=== PATIENT | male | born 1955 | race Caucasian/White ===

== ENCOUNTER 2019-05-25 10:11 | Inpatient (IN) | payer MEDICARE ==
[2019-05-25] MEDS ORDERED: ISOVUE-370 76%-LOCM 1 ML ONE (10:58)
[2019-05-25 10:59] LABS: Bilirubin Negative (Negative); Blood, Urine Large (Negative); Clarity CLOUDY (Clear); Glucose, Urine (Dipstick) Negative (Negative); Leukocyte Moderate (Negative); Nitrite Negative (Negative); Protein, Urine (Dipstick) 100 mg/dL (Neg-Trace); Urobilinogen 0.2 mg/dL (0.2-1.0)
[2019-05-25 11:02] LABS: Hyaline Casts/LPF 0-3 HYALINE CAST LPF (0-3 Hyaline); RBC/HPF GREATER THAN 50-TNTC HPF (0-3); Squamous Epithelial 0-3 HPF (0-3)
[2019-05-25 11:05] LABS: Bacteria/HPF 1+ HPF (None Seen)
--- NOTE | 2019-05-25 13:14 | PDOC.FPRHP ---
- Allergies/Adverse Reactions Allergies Allergy/AdvReac Type Severity Reaction Status Date / Time No Known Allergies Allergy Verified 12/07/13 18:49 - Home Medications Medication Instructions Recorded Confirmed Type Aspirin Chewable [Aspirin Chewable 81 mg PO DAILY 12/07/13 12/07/13 History Tablet] Budesonide-Formoterol [Symbicort 1 puff INH BID 12/07/13 12/07/13 History 80-4.5] Butalb/Acetaminophen/Caffeine 1 - 2 capsule PO Q4HR PRN 12/07/13 12/07/13 History [Fioricet Capsule] Combivent Inhaler 1 puff INH 12/07/13 12/07/13 History HYDROcodone/Acetaminophen [White] 1 tab PO Q4HR PRN 12/07/13 12/07/13 History Metoprolol Tartrate [Lopressor] 50 mg PO BID 12/07/13 12/07/13 History Metronidazole [metroNIDAZOLE] 500 mg PO Q8HR 12/07/13 12/07/13 History Plavix 75 mg PO DAILY 12/07/13 12/07/13 History Promethazine [Phenergan] 25 mg PO Q4HR PRN 12/07/13 12/07/13 History Vancomycin HCl [Vancocin] 250 mg PO Q8HR 12/07/13 12/07/13 History - History PMHx: PSHx: FHx: Social: - Vital signs BP: [] HR: [] RR: [] Tmax: [] Pox: []% on [] Wt: [] FMR H&P: Results - Labs Lab results: Urine Ketones Negative mg/dL (Negative) 05/25/19 10:48 Urine Blood Large (Negative) H 05/25/19 10:48 Urine Nitrite Negative (Negative) 05/25/19 10:48 Ur Leukocyte Esterase Moderate (Negative) H 05/25/19 10:48 Urine RBC GREATER THAN 50-TNTC HPF (0-3) H 05/25/19 10:48 Urine WBC 4-6 HPF (0-3) H 05/25/19 10:48 Ur Squamous Epith Cells 0-3 HPF (0-3) 05/25/19 10:48 Urine Bacteria 1+ HPF (None Seen) H 05/25/19 10:48 FMR H&P: Upper Level - Plan Date/Time: 05/25/19 1314 I, [], have evaluated this patient and agree with findings/plan as outlined by international banker resident. Pertinent changes/additions are listed here.
[2019-05-25] MEDS ORDERED: Cefepime 2 GM VIAL ONE (13:30)
[2019-05-25] MEDS ORDERED: Piperacillin/Tazobactam 4.5 GM VIAL ONE (13:30)
--- NOTE | 2019-05-25 14:21 | CT ---
EXAM: CT of the chest with contrast HISTORY: Right lower lobe pneumonia COMPARISON: None TECHNIQUE: Multiple contiguous axial images were obtained in a CT the chest with contrast. Coronal re formats were performed. FINDINGS: HEART: Normal in size without focal cardiac abnormality; calcifications in the coronary arteries. The re is a pacemaker with its lead in the right atrium. MEDIASTINUM: No hilar or mediastinal lymphadenopathy. LUNGS: Scattered multifocal infiltrates are seen, greatest in the right lower lobe. PLEURAL SPACE: Small right pleural effusion with fluid loculated in the right minor fissure. Calcific ations are seen along the pleura on the right. There is also a small layering left pleural effusion. CHEST WALL SOFT TISSUES: Unremarkable OSSEOUS STRUCTURES: Degenerative changes in the spine. VISUALIZED SUBDIAPHRAGMATIC STRUCTURES: Unremarkable IMPRESSION: 1. Multifocal pneumonia 2. Bilateral pleural effusions
[2019-05-25] MEDS ORDERED: Senokot S 8.6-50 MG TAB PO PRN ×2 (14:55→21:00)
[2019-05-25] MEDS ORDERED: Ondansetron PF 4 MG/2 ML Vial IVP PRN ×2 (14:55→14:56)
[2019-05-25] MEDS ORDERED: Calcium Carbonate 500 MG ChewTAB PO PRN ×2 (14:55→14:56)
[2019-05-25] MEDS ORDERED: Bisacodyl 5 MG TAB PO PRN (14:55)
[2019-05-25] MEDS ORDERED: Nitroglycerin 0.4 MG TAB (25 Tab Bottle) SL PRN (14:56)
[2019-05-25] MEDS ORDERED: cloNIDine 0.1 MG TAB PO PRN (14:56)
[2019-05-25] MEDS ORDERED: Benzonatate 100 MG CAP PO PRN (14:56)
[2019-05-25] MEDS ORDERED: Sodium Chloride 0.65% Nasal 44 ML BOT EA NARE PRN (14:56)
[2019-05-25] MEDS ORDERED: hydrALAZINE 20 MG/ML VIAL SLOW IVP PRN (14:56)
[2019-05-25] MEDS ORDERED: Acetaminophen 325 MG TAB ONE (15:13)
[2019-05-25] MEDS ORDERED: Furosemide 40 MG/4 ML VIAL SLOW IVP SCH (16:15)
--- NOTE | 2019-05-25 17:26 | HP ---
PRIMARY CARE PHYSICIAN: Luther Weller MD CHIEF COMPLAINT: Worsening shortness of breath, leukocytosis, and pneumonia. HISTORY OF PRESENTING ILLNESS: Mr. Romeo is a 64-year-old male with past medical history of peripheral vascular disease, hypertension, COPD, and tobacco abuse, who presented to the emergency room from inpatient rehab. History was mainly obtained by discussing with the ER physician, Dr. Rivera. The patient is a very poor historian and short of breath to provide any meaningful history. According to Dr. Rivera, in the ER, Mr. Romeo was transferred over by Dr. Farhad Ruelas from the rehab center. Apparently, he has undergone a right below-knee amputation at [facility] earlier this month and was transferred over to rehab facility. He developed pneumonia over there and was initially treated with Augmentin, but later, cultures came back positive for Pseudomonas, so he was started on cefepime. He was also given IV Solu-Medrol. Unfortunately, he had worsening leukocytosis and worsening shortness of breath, so, Dr. Ruelas transferred him over to the emergency room today. In the ER upon presentation, his saturations were recorded as 100%, but that was on BiPAP. He was eventually transitioned off BiPAP. He underwent a CT scan of the chest in the ER, which showed significant multifocal pneumonia and pleural effusion. Upon review of his blood work from the rehab, it was found out that his leukocytosis has worsened from 15.6 on 05/19/2019 to 25 today. He has also developed thrombocytosis with platelet count of 988 from 874. His neutrophil percent age is 86% with 1% bands. His serum chemistries show a potassium of 5.6, but the GFR is within normal limit of greater than 90. His cultures in [facility] are from blood and urine dated 05/21 and 05/24 and are negative so far. I am not sure if the Pseudomonas was seen on the blood culture or the sputum culture. He also has a PICC line that was placed in the rehab on 05/21/2019. He has been weaned off BiPAP for now, but will be admitted to [facility] for continued struggle with his breathing. He has been somewhat combative in the ER and refused to put on the BiPAP machine. I did discuss this with him and so far he is agreeable. He also is agreeable to intubation if necessary and wants to be a full code. PAST MEDICAL HISTORY: Peripheral vascular disease, hypertension, history of migraine, coronary artery disease, COPD, and tobacco abuse. PAST SURGICAL HISTORY: 1. Femoral-popliteal bypass, left leg. 2. Bilateral leg amputations. The right BKA was done earlier this month at [facility]. PSYCHIATRIC HISTORY: No anxiety. No depression. SOCIAL HISTORY: He smokes half pack a day to one pack a day for 40+ years. He reports he drinks alcohol whenever he can. No drug abuse. He is currently at the rehab. Otherwise, he is and lives with his . FAMILY HISTORY: Brother diagnosed with heart attack at the age of 50. Father of pancreatic cancer. Mother of breast cancer. Hypertension runs among several family members. Sister had colon cancer. REVIEW OF SYSTEMS: CONSTITUTIONAL: Negative for weight loss or gain, ability to conduct usual activities. SKIN: Negative for rash, itching. EYES: Negative for double vision, pain. ENT/MOUTH: Negative for nose bleeding, neck stiffness, pain, tenderness. CARDIOVASCULAR: Negative for palpitations, dyspnea on exertion, orthopnea. RESPIRATORY: Negative for shortness of breath, wheezing, cough, hemoptysis, fever or night sweats. GASTROINTESTINAL: Negative for poor appetite, abdominal pain, heartburn, nausea, vomiting, constipation, or diarrhea. GENITOURINARY: Negative for urgency, frequency, dysuria, nocturia. MUSCULOSKELETAL: Negative for pain, swelling. NEUROLOGIC/PSYCHIATRIC: Negative for anxiety, depression. ALLERGY/IMMUNOLOGIC: Negative for skin rash, bleeding tendency. A 14-point review of systems is done. It is negative except for those mentioned in History and Physical. CODE STATUS: Full code, discussed with the patient. LABORATORY DATA: CBC shows WBCs 25.8 with 86% neutrophils, hemoglobin is 8.8, which was about the same throughout this month, and platelet count of 988. Serum chemistry shows sodium 133, potassium 5.6, bicarb 22, his BUN is 19, and his creatinine is 0.67. Troponin is 0.016. BNP was ordered by myself and was found to be elevated at 1607. Chest x-ray by my review shows bilateral pleural effusions with multiple pulmonary opacities. There are more prominent than the prior exam according to the radiologist. CT scan of the chest done in the ER today shows multifocal pneumonia bilaterally and bilateral pleural effusions. PHYSICAL EXAMINATION: VITAL SIGNS: Most recently, blood pressure 138/74, pulse of 76, respirations 22, and saturating 95% on 4 L oxygen. GENERAL: He is in mild respiratory distress, which worsens with conversation, but he is awake, alert, and oriented x3. HEENT: Mucous membrane is slightly dry. No oropharyngeal exudate or erythema. Head is normocephalic and atraumatic. Pupils are equal and reactive to light and accommodation. Extraocular movements intact. NECK: Supple without any lymphadenopathy, JVD, or bruit. CHEST: Evaluation shows bibasilar crackles. Decreased breath sounds at bases and diffuse wheezing bilaterally with loud rhonchi. HEART: Rate and rhythm are regular without any murmurs, rubs, or gallops. ABDOMEN: Soft, nontender, nondistended with positive bowel sounds. EXTREMITIES: Free of any cyanosis, clubbing, or edema. He has bilateral below-knee amputation. His right below-knee amputation is rather fresh, and his fresh dressing is without any drainage or erythema or warmth. NEUROLOGICAL: Examination is nonfocal. SKIN: Free of any rashes or bruises. Feels warm and dry to touch. PSYCHIATRIC: Normal affect. IMPRESSION AND PLAN: The patient has worsening leukocytosis, thrombocytosis, and worsening pneumonia on the chest CT. He has grown Pseudomonas out of some sort of culture at rehab, I am not sure sputum versus blood. Because of his prolonged hospitalization, we will double cover him for Pseudomonas with Zosyn and cefepime and add methicillin-resistant Staphylococcus aureus coverage with vancomycin as well. Symptomatic supportive care will be started. We will request consultation with Infectious Disease, Dr. Montero for now. We will obtain cultures from the PICC line as well as peripheral IV and urine as well. We will repeat labs in the morning. Lactic acid was ordered by myself, and it is not elevated at this time, and it is reported as 1.6. He is otherwise hemodynamically stable, but because of severity of his respiratory distress, he will be admitted to [facility]. 1. Acute hypoxic respiratory failure. I suspect a combination of chronic obstructive pulmonary disease exacerbation as well as fluid overload with pleural effusion and pneumonia. We will give him a dose of IV Lasix as his BNP is elevated and obtain a transthoracic echocardiogram and obtain cardiac enzymes. First cardiac enzyme was negative. We will use Solu-Medrol as well as nebulizers scheduled and p.r.n. for chronic obstructive pulmonary disease exacerbation. We will also use IV antibiotics as above for worsening multifocal pneumonia. BiPAP will be used as needed, and we will put him in IMCU and consult Pulmonary/Critical Care physicians to follow along. 2. Pneumonia, unlikely healthcare associated. Antibiotic and culture as above. 3. Elevated BNP. We will obtain an echo and diurese him with close monitoring of his renal function. His last echocardiogram was in 2013, which demonstrated mild diastolic congestive heart failure, but it was a difficult study. Acute coronary syndrome is not suspected at this time. 4. Chronic obstructive pulmonary disease with acute exacerbation as #2. 5. Bilateral [id number] amputation. Fall precautions will be provided, and we will consult Wound Care for wound care of his right stump. 6. Deep venous thrombosis and gastrointestinal prophylaxis. 7. Disposition: Mr. Romeo is currently being admitted to [facility] for acute respiratory distress and severe sepsis with end-organ damage. 8. Estimated length of stay at this time is at least 2 to 3 midnights. Further management will depend upon his clinical course. Total time spent in taking care of this critically-ill patient, 45 minutes. Job ID: [id number]
[2019-05-25] MEDS ORDERED: Furosemide 40 MG/4 ML VIAL ONE (17:58)
[2019-05-25] MEDS ORDERED: Cefepime 1 GM in Sodium Chloride 0.9% 100 ML IVPB SCH (21:00)
[2019-05-25] MEDS: methylPREDNISolone Sod Succ/PF 125 MG/2 ML VIAL IVP SCH ×2 (21:23→23:11)
[2019-05-25] MEDS: Piperacillin/Tazobactam 3.375 GM in Sodium Chloride 0.9% 100 ML IVPB SCH ×2 (21:23→23:11)
[2019-05-25] MEDS: guaiFENesin ER 600 MG TAB PO SCH (21:27)
[2019-05-25] MEDS: oxyCODONE 5 MG TAB PO PRN (21:27)
[2019-05-25] MEDS: Heparin 5,000 UNITS/ML VIAL SC SCH (21:28)
[2019-05-25] MEDS: Famotidine/PF 20 mg/2ml Vial SLOW IVP SCH (21:28)
[2019-05-25] MEDS: Cepastat Lozenges 1 LOZ PO PRN (22:53)
[2019-05-25] MEDS ORDERED: Morphine 2 MG/ML SYRINGE SLOW IVP SCH (23:45)
[2019-05-26] MEDS: Cefepime 1 GM in Sodium Chloride 0.9% 100 ML IVPB SCH ×2 (01:27→15:17)
[2019-05-26] MEDS: Cepastat Lozenges 1 LOZ PO PRN ×3 (01:27→21:34)
[2019-05-26] MEDS: oxyCODONE 5 MG TAB PO PRN ×4 (01:28→23:53)
[2019-05-26] MEDS: Vancomycin HCl 750 MG in Sodium Chloride 0.9% 250 ML 250 ML IVPB SCH ×2 (04:04→16:38)
[2019-05-26] MEDS: methylPREDNISolone Sod Succ/PF 125 MG/2 ML VIAL IVP SCH (05:25)
[2019-05-26] MEDS: Piperacillin/Tazobactam 3.375 GM in Sodium Chloride 0.9% 100 ML IVPB SCH ×4 (05:26→23:27)
[2019-05-26] MEDS: Furosemide 40 MG/4 ML VIAL SLOW IVP SCH ×2 (05:26→15:17)
[2019-05-26 06:38] LABS: #Lymphocytes 0.3 thou/uL (1.20-3.40); #Monocytes 0.3 thou/uL (0.11-0.59); #Neutrophils 17.7 thou/uL (1.40-6.50); %Eosinophils 0.1 % (0.0-10.0); %Lymphocytes 1.4 % (21.0-51.0); %Monocytes 1.8 % (0.0-10.0); %Neutrophils 96.6 % (42.0-75.0); Mean Corpuscular HGB CONC 30.9 g/dL (32.0-36.0); Mean Corpuscular Hemoglobin 22.5 pg (27.0-31.0); Mean Corpuscular Volume 72.8 fL (78.0-98.0); Mean Platelet Volume 7.2 fL (7.4-10.4); Platelet Count 877 thou/uL (130-400); RBC Distribution Width 17.4 % (11.5-14.5); Red Blood Cell (RBC) Count 3.99 mill/uL (4.70-6.10); White Blood Cell (WBC) Count 18.3 thou/uL (4.8-10.8)
[2019-05-26 07:01] LABS: Anion Gap 12 mmol/L (10-20); BUN (Urea Nitrogen) 17 mg/dL (8.4-25.7); Calc. Creatinine Clearance 78 mL/min (70-130); Calcium 8.7 mg/dL (7.8-10.44); Carbon Dioxide 28 mmol/L (23-31); Chloride 101 mmol/L (98-107); Estimated GFR-MDRD Greater than 90; Glucose 141 mg/dL (80-115); Potassium 3.8 mmol/L (3.5-5.1); Sodium 137 mmol/L (136-145)
[2019-05-26 07:03] LABS: Anisocytosis SLIGHT = 6-15 cells (100X) (0-5/hpf); MDiff Complete? YES; Microcytosis SLIGHT = 6-15 cells (100X) (0-5/hpf); Platelet Morphology Comment Appears Increased
[2019-05-26] MEDS ORDERED: Vancomycin HCl 1 GM in Premix Bag 1 BAG IVPB SCH (09:00)
--- NOTE | 2019-05-26 09:02 | CON ---
DATE OF CONSULTATION: HISTORY OF PRESENT ILLNESS: Child Ousmane is a 64-year-old gentleman who recently underwent right below-knee amputation. He has been followed at the intermediate, had prolonged IV antibiotic, had a PICC line inserted. Right BKA was done on 05/11/2019. Presents with shortness of breath, fevers, chills, sweats. He has multiple medical problems. This morning, he was complaining of pain all over, particularly his back, his leg. He says he actually has some difficulty breathing, but that is somewhat better. Denies any coughing, wheezing, or chest pain. PAST MEDICAL HISTORY: In his numerous medical records, pertinent for COPD, hypertension, peripheral vascular disease, coronary artery disease. Longstanding history of apparently chronic headaches, mental status change. PAST SURGICAL HISTORY: Including left leg bypass, fem-popliteal bypass, bilateral lower leg amputation. SOCIAL HISTORY: Longstanding history of tobacco abuse for 40 years and alcohol intake. MEDICATIONS: His medicines presumably from home included: 1. Guaifenesin. 2. Pain medicine. 3. Atorvastatin. 4. Combivent inhaler. 5. Aspirin. 6. Plavix. 7. Amiodarone. 8. Verapamil. 9. Since admission, he has been started on neb treatments, Maxipime, Zosyn, and vancomycin. So far, cultures have been negative except for yeast. ALLERGIES: NONE. REVIEW OF SYSTEMS: Ten-point negative. PHYSICAL EXAMINATION: VITAL SIGNS: His sats are 99% on 2 L, respiratory rate 23, temp 97, blood pressure 99/76. CHEST: Decreased breath sounds. No wheezing. CARDIAC: Normal S1, S2. No gallops. ABDOMEN: No mass. LABORATORY DATA: White count 44744, H and H 9 and 29, platelet count is 877. Lytes are normal. Urine shows UTI. His chest x-ray showed evidence of bilateral pulmonary infiltrates slightly more pronounced in the right chest. His CAT scan of his chest did show infiltrates along with fluid along his minor fissure, may be loculated. IMPRESSION: 1. Coronary artery disease status post CABG. 2. Urinary tract infection. 3. Aspiration pneumonia. 4. Chronic obstructive pulmonary disease. 5. Severe deconditioning. 6. Peripheral vascular disease. 7. Alcohol abuse. 8. Tobacco abuse. PLAN: 1. Antibiotics per Infectious Disease. He no longer needs to be on MICU area. 2. We will continue steroids and neb treatment. 3. We will follow while on the MICU. Consultation note, 70 minutes, 50% with direct patient care. Job ID: [id number]
[2019-05-26] MEDS: Famotidine/PF 20 mg/2ml Vial SLOW IVP SCH ×2 (09:19→21:34)
[2019-05-26] MEDS: guaiFENesin ER 600 MG TAB PO SCH ×2 (09:19→21:34)
[2019-05-26] MEDS: Heparin 5,000 UNITS/ML VIAL SC SCH ×2 (09:19→21:34)
[2019-05-26] MEDS: methylPREDNISolone Sod Succ 40 MG VIAL IVP SCH ×3 (12:57→23:27)
--- NOTE | 2019-05-26 13:43 | PDOC.PN ---
- Subjective Encounter Start Date: 05/26/19 Encounter Start Time: 13:30 Subjective: f/u for acute resp failure, bilateral multifocal PNA on Cefepime, Vanc -: and Zosyn. - Objective Resuscitation Status - Order Detail: 05/25/19 14:55 Resuscitation Status Routine Resuscitation Status: FULL: Full Resuscitation Discussed with: discussed w pt JERAD Reviewed: Yes Vital Signs & Weight: Vital Signs (12 hours) Temp Pulse Resp Pulse Ox 05/26/19 10:58 78 18 99 05/26/19 10:27 97.0 F L 05/26/19 07:16 99 05/26/19 07:14 87 23 H 99 05/26/19 07:06 97.0 F L 05/26/19 05:20 90 24 H 100 05/26/19 03:52 97.3 F L 05/26/19 01:53 80 20 98 Weight Weight 118 lb 4.8 oz Most Recent Monitor Data Heart Rate from ECG 90 NIBP 99/76 NIBP BP-Mean 83 Respiration from ECG 29 SpO2 100 I&O: 05/25/19 05/26/19 05/27/19 06:59 06:59 06:59 Intake Total 1000 Output Total 1210 200 Balance -210 -200 Result Diagrams: 05/26/19 06:08 05/26/19 06:08 Additional Labs: Microbiology 05/24/19 09:17 Urine clean catch Urine Culture - Final Yeast species 05/25/19 13:19 Venous blood - Right Arm Blood Culture - Preliminary Specimen has been received and culture in progress. No Growth to date. 05/25/19 13:19 Venous blood - Left Arm Blood Culture - Preliminary Specimen has been received and culture in progress. No Growth to date. 05/25/19 10:48 Urine voided Urine Culture - Preliminary NO GROWTH AT 24 HOURS 05/21/19 16:42 Venous blood - Left Arm Blood Culture - Preliminary NO GROWTH AT 48 HOURS Laboratory Tests 05/24/19 05/25/19 05/25/19 05:00 02:00 15:16 WBC 21.2 H 25.8 H Hgb 8.4 L 8.8 L Lactic Acid 1.6 B-Natriuretic Peptide 05/25/19 15:16 WBC Hgb Lactic Acid B-Natriuretic Peptide 1607.3 H Radiology Reviewed by me: Yes (CT chest - multifocal infiltrates, consolidation , bilat pleural effusion) EKG Reviewed by me: Yes (Tele - SR) Phys Exam - Physical Examination Constitutional: NAD HEENT: PERRLA, sclera anicteric, oral pharynx no lesions Neck: no nodes, no JVD, supple, full ROM diminished in bases bilat S1, S2 Cardiovascular: RRR, no significant murmur, no rub, gallop Gastrointestinal: soft, non-tender, no distention, positive bowel sounds R BKA stump intact with wound dressings in place Musculoskeletal: pulses present Neurological: normal sensation, moves all 4 limbs A x O x 2 Skin: normal turgor, cap refill <2 seconds Dx/Plan (1) Pneumonia, bacterial Code(s): J15.9 - UNSPECIFIED BACTERIAL PNEUMONIA Status: Acute Comment: Bilateral involvement per CT chest, continue Vanc/Zosyn/Cefepime, Duonebs, Solumedrol, await blood cx results (2) Acute respiratory failure with hypoxia Code(s): J96.01 - ACUTE RESPIRATORY FAILURE WITH HYPOXIA Status: Acute Comment: Continue O2 support, see above (3) Toxic metabolic encephalopathy Code(s): G92 - TOXIC ENCEPHALOPATHY Status: Acute Comment: Secondary to #1, supportive mgmt, re-orientation techniques (4) Neutrophilic leukocytosis Code(s): D72.9 - DISORDER OF WHITE BLOOD CELLS, UNSPECIFIED Status: Acute Comment: Mild improvement, continue treatment as outlined above, serial CBC (5) COPD exacerbation Code(s): J44.1 - CHRONIC OBSTRUCTIVE PULMONARY DISEASE W (ACUTE) EXACERBATION Status: Acute (6) Peripheral vascular disease Code(s): I73.9 - PERIPHERAL VASCULAR DISEASE, UNSPECIFIED Status: Chronic Comment: Continue anti-platelet therapy (7) Status post below knee amputation of right lower extremity Code(s): Z89.511 - ACQUIRED ABSENCE OF RIGHT LEG BELOW KNEE Status: Acute Comment: Continue local wound care, consider Surgical evaluation - Plan plan discussed w/ family, continue antibiotics, PT/OT, aids social worker, respiratory therapy Stable currently -: 2D echo pending -: Continue Vanc/Zosyn/Cefepime -: PT/OT for functional assessment -: Resume ASA/Plavix * AM lab: BMP, CBC * Rehab re-screening once stabilizing
[2019-05-26] MEDS ORDERED: Diabetic Tussin 200 MG/10 ML UDCUP PO PRN (14:00)
[2019-05-26] MEDS ORDERED: Bisacodyl 10 MG SUPP PR PRN (14:00)
--- NOTE | 2019-05-26 18:20 | CON ---
DATE OF CONSULTATION: 05/26/2019 REASON FOR CONSULTATION: Possible pneumonia. HISTORY OF PRESENT ILLNESS: A 64-year-old patient with history of COPD, chronic smoking, still actively smoking; peripheral vascular disease with prior left BKA, who recently underwent a right BKA at [facility]. While there, he was diagnosed with pneumonia, was given initially I believe was azithromycin and transitioned to IV cefepime. Cultures from sputum yielded Pseudomonas aeruginosa, the strain was markedly susceptible to various different antimicrobials. The x-ray showed a patchy infiltrate in the right lower lobe only. After discharge, he developed worsening dyspnea, leukocytosis. He was transferred today to the emergency room from rehab. Initial O2 saturations were 100% on BiPAP. The CT scan of the chest was done which showed multifocal areas of pneumonia and loculated pleural effusion. Currently sitting on the bed at the [facility] area. Denies headaches. No visual symptoms, sore throat, odynophagia, or dysphagia. He has back pain along the entire extent of his back along the spine. He has severe pain at the amputation site, right BKA. He denies abdominal pain or chest pain. MEDICAL HISTORY: Peripheral vascular disease with bilateral BKAs, hypertension, migraine headaches, coronary artery disease; chronic obstructive pulmonary disease, chronic smoking, still actively smoking. SURGICAL HISTORY: Femoral-popliteal bypass, left side; bilateral BKAs. SOCIAL HISTORY: Current smoker. Lives in [place] by himself and he drinks heavily. FAMILY HISTORY: Heart disease and pancreatic cancer. CURRENT MEDICATIONS: 1. DuoNeb. 2. Cordarone. 3. Aspirin. 4. Lipitor. 5. Tessalon. 6. Dulcolax. 7. Cefepime. 8. Catapres. 9. Lasix. 10. Solu-Medrol. 11. Zofran. 12. Oxycodone. 13. Zosyn. 14. Vancomycin. PHYSICAL EXAMINATION: VITAL SIGNS: T-max 97.3, blood pressure 115/63, pulse 83, respirations are 16, and O2 saturation 99%. SKIN: Skin with the areas of abrasion in gluteal skin region and the area of below knee amputation with epidermolysis with bruising along the incision and the flap procedure with still ruiz in place. No overt necrosis, areas of superficial skin necrosis along the medial aspect of the right knee. GENERAL: The patient has no lymphadenopathy, chronically ill appearing, a little bit confused. HEENT: His ocular movements are conjugate. Pupils are equal. Conjunctivae normal. Oral cavity with no remaining [place] teeth. LUNGS: Diminished breath sounds, but symmetric in distribution. No obvious crackles or wheezing. HEART: S1 and S2. Diminished heart sounds. Soft aortic murmur. ABDOMEN: Not distended except for the suprapubic area where there is evidence of bladder distention. The remainder aspect of the abdomen, not distended. No ascites. No organomegaly. MUSCULOSKELETAL: No joint inflammatory activity except for the area of the amputation, which is very tender to palpation. NEUROLOGIC: He knows his name. He knows that he is in the hospital, could not tell me which hospital or the date. LABORATORY DATA: White cell count 18,000, hemoglobin 9, MCV 72, platelets are 877. Sodium 137 and creatinine 0.74. BNP 1600. Microbiology with negative blood cultures thus far. Urine culture, no growth 24, hours. Urinalysis with 4 to [address] was done here in the hospital, which showed multifocal areas of infiltrates greater than the right lung, small right pleural effusion with loculated fluid along the right minor fissure. ASSESSMENT: Peripheral vascular disease; chronic smoking; chronic obstructive pulmonary disease; likely ischemic cardiomyopathy with recent right BKA amputation, unclear prognosis for the right BK amputation and may need to be revised if the patient develops deterioration of the amputation site. He still has bilateral pulmonary infiltrates with an elevated BNP and it is possible that this all reflects pulmonary edema rather than an infectious pneumonitis. He was already started on broad-spectrum coverage, we will go ahead and submit a procalcitonin. Other possibilities would include pulmonary hemorrhage. Atypical infections are less likely. Vasculitis less likely. Thromboembolism is less likely as well. Job ID: [id number]
[2019-05-26] MEDS: Mometasone/Formoterol 120 PUFF INHALER INH SCH (18:31)
[2019-05-26] MEDS ORDERED: Ziprasidone 20 MG VIAL IM SCH (21:30)
[2019-05-26] MEDS: Atorvastatin Calcium 20 MG TAB PO SCH (21:31)
[2019-05-26] MEDS: Amiodarone 200 MG TAB PO SCH (21:31)
[2019-05-27] MEDS: Cefepime 1 GM in Sodium Chloride 0.9% 100 ML IVPB SCH ×2 (01:10→13:02)
[2019-05-27 03:45] LABS: #Lymphocytes 0.4 thou/uL (1.20-3.40); #Monocytes 0.7 thou/uL (0.11-0.59); #Neutrophils 15.7 thou/uL (1.40-6.50); %Eosinophils 0.1 % (0.0-10.0); %Lymphocytes 2.5 % (21.0-51.0); %Monocytes 4.3 % (0.0-10.0); %Neutrophils 93.1 % (42.0-75.0); Hemoglobin 8.3 g/dL (14.0-18.0); Mean Corpuscular HGB CONC 30.8 g/dL (32.0-36.0); Mean Corpuscular Hemoglobin 22.2 pg (27.0-31.0); Mean Corpuscular Volume 72.1 fL (78.0-98.0); Mean Platelet Volume 7.3 fL (7.4-10.4); Platelet Count 829 thou/uL (130-400); RBC Distribution Width 17.5 % (11.5-14.5); Red Blood Cell (RBC) Count 3.72 mill/uL (4.70-6.10); White Blood Cell (WBC) Count 16.9 thou/uL (4.8-10.8)
[2019-05-27 04:00] LABS: Anion Gap 9 mmol/L (10-20); BUN (Urea Nitrogen) 19 mg/dL (8.4-25.7); Calc. Creatinine Clearance 78 mL/min (70-130); Calcium 8.3 mg/dL (7.8-10.44); Carbon Dioxide 34 mmol/L (23-31); Chloride 96 mmol/L (98-107); Estimated GFR-MDRD Greater than 90; Glucose 142 mg/dL (80-115); Sodium 136 mmol/L (136-145)
[2019-05-27 04:02] LABS: Potassium 2.7 mmol/L (3.5-5.1)
[2019-05-27] MEDS ORDERED: Potassium Chloride 20 MEQ in Premix Bag 1 BAG IVPB SCH (04:30)
[2019-05-27] MEDS ORDERED: Vancomycin HCl 1 GM in Premix Bag 1 BAG IVPB SCH (05:00)
[2019-05-27] MEDS: Piperacillin/Tazobactam 3.375 GM in Sodium Chloride 0.9% 100 ML IVPB SCH ×3 (05:57→17:23)
[2019-05-27] MEDS: methylPREDNISolone Sod Succ 40 MG VIAL IVP SCH (05:58)
[2019-05-27] MEDS: Furosemide 40 MG/4 ML VIAL SLOW IVP SCH ×2 (05:58→13:01)
[2019-05-27] MEDS: oxyCODONE 5 MG TAB PO PRN ×5 (06:17→21:31)
[2019-05-27] MEDS: Cepastat Lozenges 1 LOZ PO PRN (06:24)
[2019-05-27] MEDS: Mometasone/Formoterol 120 PUFF INHALER INH SCH ×2 (07:15→18:34)
[2019-05-27] MEDS: Famotidine/PF 20 mg/2ml Vial SLOW IVP SCH ×2 (09:02→21:31)
[2019-05-27] MEDS: Amiodarone 200 MG TAB PO SCH ×2 (09:02→21:33)
[2019-05-27] MEDS: guaiFENesin ER 600 MG TAB PO SCH ×2 (09:02→21:33)
[2019-05-27] MEDS: Heparin 5,000 UNITS/ML VIAL SC SCH ×2 (09:02→21:31)
[2019-05-27] MEDS: Aspirin Chewable 81 MG TAB PO SCH (09:03)
[2019-05-27] MEDS: Clopidogrel Bisulfate 75 MG TAB PO SCH (09:03)
--- NOTE | 2019-05-27 09:51 | PRG ---
DATE OF SERVICE: SUBJECTIVE: Jason Romeo, this morning, is awake, alert, and responsive. OBJECTIVE: VITAL SIGNS: Sats are 96 on 2 L, respirations of 20, pulse 80, temperature , blood pressure 120/57. CHEST: Bilateral rhonchi and crackles, right greater than left. CARDIAC: Normal S1 and S2. No gallops. ABDOMEN: No masses. LABORATORY DATA: White count 15,000. So far, cultures are negative. IMPRESSION: Pneumonia; urinary tract infection; severe deconditioning; amputation, bilateral. PLAN: His broad-spectrum antibiotics as per Infectious Disease. Zosyn and vancomycin and Maxipime. At this stage, switch over to oral prednisone. Continue neb treatments. He can probably be transferred out of the MICU. Job ID: [id number]
--- NOTE | 2019-05-27 11:21 | PDOC.PN ---
- Subjective Encounter Start Date: 05/27/19 Encounter Start Time: 11:20 Subjective: f/u for bilateral pneumonia on Zosyn/Cefepime/Vanc. Still confused -: per but overall better in last 24h. - Objective Resuscitation Status - Order Detail: 05/25/19 14:55 Resuscitation Status Routine Resuscitation Status: FULL: Full Resuscitation Discussed with: discussed w pt MAR Reviewed: Yes Vital Signs & Weight: Vital Signs (12 hours) Temp Pulse Resp Pulse Ox 05/27/19 10:43 97.0 F L 05/27/19 10:39 85 18 98 05/27/19 07:14 80 20 96 05/27/19 07:05 97.2 F L 05/27/19 04:00 78 05/27/19 03:21 96.8 F L 05/27/19 00:00 21 H 05/26/19 23:31 97.4 F L Weight Admit Weight 119 lb 14.4 oz Weight 118 lb 4.8 oz Most Recent Monitor Data Heart Rate from ECG 86 NIBP 123/53 NIBP BP-Mean 76 Respiration from ECG 29 SpO2 100 I&O: 05/26/19 05/27/19 05/28/19 06:59 06:59 06:59 Intake Total 1000 2396 Output Total 1210 3150 Balance -210 -754 Result Diagrams: 05/27/19 03:31 05/27/19 03:31 Additional Labs: Microbiology 05/25/19 10:48 Urine voided Urine Culture - Final NO GROWTH AT 48 HOURS 05/24/19 09:17 Urine clean catch Urine Culture - Final Yeast species 05/25/19 13:19 Venous blood - Right Arm Blood Culture - Preliminary Specimen has been received and culture in progress. No Growth to date. 05/25/19 13:19 Venous blood - Left Arm Blood Culture - Preliminary Specimen has been received and culture in progress. No Growth to date. 05/25/19 10:48 Urine voided Urine Culture - Preliminary NO GROWTH AT 24 HOURS 05/21/19 16:42 Venous blood - Left Arm Blood Culture - Preliminary NO GROWTH AT 48 HOURS Laboratory Tests 05/24/19 05/25/19 05/25/19 05:00 02:00 15:16 WBC 21.2 H 25.8 H Hgb 8.4 L 8.8 L Plt Count Neutrophils % Potassium Lactic Acid 1.6 B-Natriuretic Peptide Vancomycin Trough 06/24/19 06/25/19 06/25/19 15:16 06:08 06:08 WBC 18.3 H Hgb 9.0 L Plt Count 877 H Neutrophils % 96.6 H Potassium 3.8 Lactic Acid B-Natriuretic Peptide 1607.3 H Vancomycin Trough 05/27/19 05/27/19 03:31 03:31 WBC Hgb Plt Count Neutrophils % 93.1 H Potassium Lactic Acid B-Natriuretic Peptide Vancomycin Trough 12.0 EKG Reviewed by me: Yes (Tele - SR) Phys Exam - Physical Examination Constitutional: NAD HEENT: PERRLA, sclera anicteric, oral pharynx no lesions Neck: no nodes, no JVD, supple, full ROM diminished in bases, scattered coarse sounds S1, S2 Cardiovascular: RRR, no significant murmur, no rub, gallop Gastrointestinal: soft, non-tender, no distention, positive bowel sounds Bilateral stumps intact Musculoskeletal: pulses present, edema present Neurological: normal sensation, moves all 4 limbs A x O x 1 Deviation from normal: multiple skin wounds on LE's with dressings in place Skin: normal turgor, cap refill <2 seconds Dx/Plan (1) Pneumonia, bacterial Code(s): J15.9 - UNSPECIFIED BACTERIAL PNEUMONIA Status: Acute Comment: Bilateral involvement per CT chest, continue Vanc/Zosyn/Cefepime, Duonebs, Solumedrol, await blood cx results (2) Acute respiratory failure with hypoxia Code(s): J96.01 - ACUTE RESPIRATORY FAILURE WITH HYPOXIA Status: Acute Comment: Continue O2 support, see above (3) Toxic metabolic encephalopathy Code(s): G92 - TOXIC ENCEPHALOPATHY Status: Acute Comment: Secondary to #1, supportive mgmt, re-orientation techniques, improving (4) Neutrophilic leukocytosis Code(s): D72.9 - DISORDER OF WHITE BLOOD CELLS, UNSPECIFIED Status: Acute Comment: Mild improvement, continue treatment as outlined above, serial CBC (5) COPD exacerbation Code(s): J44.1 - CHRONIC OBSTRUCTIVE PULMONARY DISEASE W (ACUTE) EXACERBATION Status: Acute Comment: See above for mgmt (6) Peripheral vascular disease Code(s): I73.9 - PERIPHERAL VASCULAR DISEASE, UNSPECIFIED Status: Chronic Comment: Continue anti-platelet therapy (7) Status post below knee amputation of right lower extremity Code(s): Z89.511 - ACQUIRED ABSENCE OF RIGHT LEG BELOW KNEE Status: Acute Comment: Continue local wound care, consider Surgical evaluation (8) Hypokalemia Code(s): E87.6 - HYPOKALEMIA Status: Acute Comment: KCL supplementation, serial K+ monitoring - Plan plan discussed w/ family, continue antibiotics, PT/OT, licensed social worker, respiratory therapy Stable overall -: Continue Cefepime/Vanc/Zosyn, de-escalate abx in 24h -: KCL supplementation -: Start Prednisone -: AM lab: BMP, CBC * Continue Neville BID
[2019-05-27] MEDS ORDERED: Potassium Chloride 20 MEQ TAB PO SCH (11:30)
[2019-05-27] MEDS: Vancomycin HCl 750 MG in Sodium Chloride 0.9% 250 ML 250 ML IVPB SCH ×2 (13:41→21:52)
--- NOTE | 2019-05-27 14:13 | PQF ---
DATE: 05-27-19 ATTN: DR. ЕКАТЕРИНА PAIZ Please exercise your independent, professional judgment in responding to the clarification form. Clinical indicators are provided on the bottom of this form for your review Please check appropriate box(s) to clarify if the following diagnosis has been ruled in or ruled out: SEPSIS [ ] Ruled in diagnosis [ ] Continue to treat [ ] Resolved [ x ] Ruled out diagnosis [ ] Other diagnosis [ ] Unable to determine In addition, please specify: Present on Admission (POA): [ ] Yes [ x ] No [ ] Unable to determine For continuity of documentation, please document condition throughout progress notes and discharge summary. Thank You. CLINICAL INDICATORS - SIGNS / SYMPTOMS / LABS: ER DX: PT HAD WORSENING BREATHING AND INCREASE OF WBC OF 15 ON 05-18-19 INCREASED TO 24 TODAY ER DX: PNEUMONIA, RESPIRATORY DISTRESS, SEPSIS, UTI WBC: 05-26-19: 18.3 05-27-19: 16.9 RISK FACTORS: ER HX: HX R BKA, L BKA, HX COPD, HX RLL PNA, FEMPOP BYPASS, CAD H&P: HX PNEUMONIA, TOBACCO ABUSE, SEVERE DECONDITIONING, ALCOHOL ABUSE, NEUTROPHILIC LEUKOCYTOSIS TREATMENTS: MAR: VANCOMYCIN IV, ZOSYN IV, CEFEPIME IV, IVF (This form is maintained as a part of the permanent medical record) 2014 [employer]. All Rights Reserved JEFE [email or web address] Office: [phone] MTDCharli
--- NOTE | 2019-05-27 14:26 | PQF ---
DATE: 05-27-19 ATTN: DR. ЕКАТЕРИНА PAIZ Please exercise your independent, professional judgment in responding to the clarification form. Clinical indicators are provided on the bottom of this form for your review Please check appropriate box(s) to clarify if the following diagnosis has been ruled in or ruled out: ASPIRATION PNEUMONIA [ ] Ruled in diagnosis [ ] Continue to treat [ ] Resolved [ x ] Ruled out diagnosis [ ] Other diagnosis [ ] Unable to determine In addition, please specify: Present on Admission (POA): [ ] Yes [ x ] No [ ] Unable to determine For continuity of documentation, please document condition throughout progress notes and discharge summary. Thank You. CLINICAL INDICATORS - SIGNS / SYMPTOMS / LABS: H&P: PNEUMONIA, [employer]. CONSULT NOTE DR. FERREIRA 05-26-19: ASPIRATION PNEUMONIA RISK FACTORS: H&P: SOB, SMOKER, DRINKS, MILD RESPIRATORY DISTRESS, SAT 95% ON 4L OXYGEN, BILATERAL LEG AMPUTATIONS, PVD, CAD, COPD TREATMENTS: ER: VANCOMYCIN IV, ZOSYN IV, CEFEPIME, IVF (This form is maintained as a part of the permanent medical record) 2014 [employer], [employer]. All Rights Reserved JEFE [email or web address] Office: [phone] [facility]ATR[facility] CENTERCharli
[2019-05-27] MEDS: Potassium Chloride 20 MEQ TAB PO SCH (16:34)
[2019-05-27] MEDS: Atorvastatin Calcium 20 MG TAB PO SCH (21:31)
[2019-05-28] MEDS: Piperacillin/Tazobactam 3.375 GM in Sodium Chloride 0.9% 100 ML IVPB SCH ×5 (01:10→23:53)
[2019-05-28] MEDS: oxyCODONE 5 MG TAB PO PRN ×4 (01:51→22:08)
[2019-05-28] MEDS: Cefepime 1 GM in Sodium Chloride 0.9% 100 ML IVPB SCH (02:21)
[2019-05-28] MEDS: Furosemide 40 MG/4 ML VIAL SLOW IVP SCH ×2 (05:56→14:51)
[2019-05-28 06:06] LABS: Vancomycin, Trough 20.2 ug/mL
[2019-05-28 06:07] LABS: Anion Gap 9 mmol/L (10-20); BUN (Urea Nitrogen) 18 mg/dL (8.4-25.7); Calc. Creatinine Clearance 73 mL/min (70-130); Calcium 8.4 mg/dL (7.8-10.44); Carbon Dioxide 33 mmol/L (23-31); Chloride 99 mmol/L (98-107); Estimated GFR-MDRD Greater than 90; Glucose 101 mg/dL (80-115); Potassium 3.2 mmol/L (3.5-5.1); Sodium 138 mmol/L (136-145)
[2019-05-28 06:09] LABS: Lymphocytes 2 % (21-51); MDiff Complete? YES; Mean Corpuscular HGB CONC 30.1 g/dL (32.0-36.0); Mean Platelet Volume 7.2 fL (7.4-10.4); Monocytes 6 % (0-10); Neutrophil 92 % (42-75); Platelet Count 895 thou/uL (130-400); Platelet Morphology Comment Appears Increased; RBC Distribution Width 17.8 % (11.5-14.5); Red Blood Cell (RBC) Count 4.07 mill/uL (4.70-6.10); White Blood Cell (WBC) Count 29.2 thou/uL (4.8-10.8)
[2019-05-28] MEDS: Vancomycin HCl 750 MG in Sodium Chloride 0.9% 250 ML 250 ML IVPB SCH ×3 (06:39→20:29)
[2019-05-28] MEDS: Mometasone/Formoterol 120 PUFF INHALER INH SCH ×2 (07:34→18:47)
[2019-05-28] MEDS: predniSONE 20 MG TAB PO SCH (08:43)
[2019-05-28] MEDS: Potassium Chloride 20 MEQ TAB PO SCH ×2 (08:43→16:19)
--- NOTE | 2019-05-28 08:49 | PRG ---
DATE OF SERVICE: 05/28/2019 SUBJECTIVE: Jason Romeo is a 64-year-old gentleman, who is awake, alert, responsive, in no distress. OBJECTIVE: VITAL SIGNS: Blood pressure 151/80, saturations are 98% on 2 L, respiratory rate 21, temperature 97. EXTREMITIES: Bilateral BK amputations. CHEST: Decreased breath sounds. No wheezing. CARDIAC: Normal S1 and S2. No gallops. ABDOMEN: Soft. LABORATORY DATA: White count 29,000. Lytes are normal. ASSESSMENT: 1. Urosepsis. 2. Pneumonia, aspiration. PLAN: Antibiotic as per Infectious Disease, vancomycin, Zosyn, and Maxipime. We will follow. He can be transferred out of the MICU. Job ID: [id number]
[2019-05-28] MEDS: guaiFENesin ER 600 MG TAB PO SCH ×2 (09:12→20:33)
[2019-05-28] MEDS: Aspirin Chewable 81 MG TAB PO SCH (09:13)
[2019-05-28] MEDS: Amiodarone 200 MG TAB PO SCH ×2 (09:13→20:33)
[2019-05-28] MEDS: Clopidogrel Bisulfate 75 MG TAB PO SCH (09:13)
[2019-05-28] MEDS: Heparin 5,000 UNITS/ML VIAL SC SCH ×2 (09:19→20:33)
[2019-05-28] MEDS: Famotidine/PF 20 mg/2ml Vial SLOW IVP SCH ×2 (09:19→20:33)
--- NOTE | 2019-05-28 10:11 | RAD ---
EXAM: Single view of the chest HISTORY: Pneumonia COMPARISON: 05/25/2019 FINDINGS: Single view of the chest shows an enlarged but stable cardiomediastinal silhouette. The pa tient is status post sternotomy. The PICC line is unchanged in position. There are improving multifocal infiltrates, greater in the right lung. No pleural effusion is seen. The bones are unremar kable. IMPRESSION: Improving multifocal pneumonia
[2019-05-28 11:37] LABS: Hemoglobin 9.4 g/dL (14.0-18.0); Mean Corpuscular HGB CONC 29.9 g/dL (32.0-36.0); Mean Corpuscular Hemoglobin 21.5 pg (27.0-31.0); Mean Corpuscular Volume 72.1 fL (78.0-98.0); Platelet Count 963 thou/uL (130-400); RBC Distribution Width 17.9 % (11.5-14.5); Red Blood Cell (RBC) Count 4.37 mill/uL (4.70-6.10)
[2019-05-28 12:02] LABS: Band 1 % (5-11); Lymphocytes 2 % (21-51); MDiff Complete? YES; Microcytosis SLIGHT = 6-15 cells (100X) (0-5/hpf); Monocytes 4 % (0-10); Neutrophil 93 % (42-75); Platelet Morphology Comment Appears Increased; Polychromasia SLIGHT = 2-3 cells (100X) (0-2/hpf)
--- NOTE | 2019-05-28 14:47 | PDOC.PN ---
- Subjective Encounter Start Date: 05/28/19 Encounter Start Time: 13:45 Subjective: f/u for bilat PNA improving on Zosyn/Vancomycin. Feels better overall -: and O2 support @ 2L/min. - Objective Resuscitation Status - Order Detail: 05/25/19 14:55 Resuscitation Status Routine Resuscitation Status: FULL: Full Resuscitation Discussed with: discussed w pt MAR Reviewed: Yes Vital Signs & Weight: Vital Signs (12 hours) Temp Pulse Pulse Pulse Resp BP BP 05/28/19 14:09 92 24 H 05/28/19 11:25 98.1 F 05/28/19 10:57 88 23 H 05/28/19 09:59 89 90 108/63 124/66 05/28/19 08:00 05/28/19 07:39 97.3 F L 05/28/19 07:33 87 21 H 05/28/19 03:47 98.4 F Pulse Ox 05/28/19 14:09 97 05/28/19 11:25 05/28/19 10:57 95 05/28/19 09:59 05/28/19 08:00 95 05/28/19 07:39 05/28/19 07:33 98 05/28/19 03:47 Weight Admit Weight 119 lb 14.4 oz Weight 108 lb 9.6 oz Most Recent Monitor Data Heart Rate from ECG 89 NIBP 108/63 NIBP BP-Mean 78 Respiration from ECG 17 SpO2 93 I&O: 05/27/19 05/28/19 05/29/19 06:59 06:59 06:59 Intake Total 2396 1770 Output Total 3150 2600 Balance -754 -830 Result Diagrams: 05/28/19 11:20 05/28/19 05:30 Additional Labs: Microbiology 05/25/19 10:48 Urine voided Urine Culture - Final NO GROWTH AT 48 HOURS 05/24/19 09:17 Urine clean catch Urine Culture - Final Yeast species 05/25/19 13:19 Venous blood - Right Arm Blood Culture - Preliminary Specimen has been received and culture in progress. No Growth to date. 05/25/19 13:19 Venous blood - Left Arm Blood Culture - Preliminary Specimen has been received and culture in progress. No Growth to date. 05/25/19 10:48 Urine voided Urine Culture - Preliminary NO GROWTH AT 24 HOURS 05/21/19 16:42 Venous blood - Left Arm Blood Culture - Preliminary NO GROWTH AT 48 HOURS Laboratory Tests 05/24/19 05/25/19 05/25/19 05:00 02:00 15:16 WBC 21.2 H 25.8 H Hgb 8.4 L 8.8 L Plt Count Neutrophils % Neutrophils % (Manual) Potassium Lactic Acid 1.6 B-Natriuretic Peptide Vancomycin Trough 05/25/19 05/26/19 05/26/19 15:16 06:08 06:08 WBC 18.3 H Hgb 9.0 L Plt Count 877 H Neutrophils % 96.6 H Neutrophils % (Manual) Potassium 3.8 Lactic Acid B-Natriuretic Peptide 1607.3 H Vancomycin Trough 05/27/19 05/27/19 05/27/19 03:31 03:31 03:31 WBC Hgb Plt Count Neutrophils % 93.1 H Neutrophils % (Manual) Potassium 2.7 L* Lactic Acid B-Natriuretic Peptide Vancomycin Trough 12.0 05/28/19 05/28/19 05/28/19 05:30 05:30 11:20 WBC 29.2 H Hgb Plt Count 895 H Neutrophils % Neutrophils % (Manual) 92 H 93 H Potassium Lactic Acid B-Natriuretic Peptide Vancomycin Trough 20.2 Radiology Reviewed by me: Yes (PCXR - improved multifocal PNA) EKG Reviewed by me: Yes (Tele - SR) Phys Exam - Physical Examination Constitutional: NAD HEENT: PERRLA, sclera anicteric, oral pharynx no lesions Neck: no nodes, no JVD, supple, full ROM diminished in bases S1, S2 Cardiovascular: RRR, no significant murmur, no rub, gallop Gastrointestinal: soft, non-tender, no distention, positive bowel sounds Bilat BKA's intact Musculoskeletal: no edema, pulses present Neurological: normal sensation, moves all 4 limbs Skin: normal turgor, cap refill <2 seconds Deviation from normal: Francisco in place with jose urine Dx/Plan (1) Pneumonia, bacterial Code(s): J15.9 - UNSPECIFIED BACTERIAL PNEUMONIA Status: Acute Comment: Bilateral involvement per CT chest, continue Vanc/Zosyn, Duonebs, Prednisone, suspected gm + cocci (2) Acute respiratory failure with hypoxia Code(s): J96.01 - ACUTE RESPIRATORY FAILURE WITH HYPOXIA Status: Acute Comment: Continue O2 support, see above (3) Toxic metabolic encephalopathy Code(s): G92 - TOXIC ENCEPHALOPATHY Status: Acute Comment: Secondary to #1, supportive mgmt, re-orientation techniques, improving (4) Neutrophilic leukocytosis Code(s): D72.9 - DISORDER OF WHITE BLOOD CELLS, UNSPECIFIED Status: Acute Comment: Worse due to steroids, converted to Prednisone, serial monitoring (5) COPD exacerbation Code(s): J44.1 - CHRONIC OBSTRUCTIVE PULMONARY DISEASE W (ACUTE) EXACERBATION Status: Acute Comment: See above for mgmt (6) Peripheral vascular disease Code(s): I73.9 - PERIPHERAL VASCULAR DISEASE, UNSPECIFIED Status: Chronic Comment: Continue anti-platelet therapy (7) Status post below knee amputation of right lower extremity Code(s): Z89.511 - ACQUIRED ABSENCE OF RIGHT LEG BELOW KNEE Status: Acute Comment: Continue local wound care, consider Surgical evaluation (8) Hypokalemia Code(s): E87.6 - HYPOKALEMIA Status: Acute Comment: KCL supplementation, serial K+ monitoring - Plan plan discussed w/ family, continue antibiotics, PT/OT, social media intern, respiratory therapy Stable currently -: Continue Zosyn/Vancomycin -: Duonebs/Prednisone -: WCT for local care -: Change Lasix 40mg po daily * AM lab: BMP, CBC * KCL replacement
--- NOTE | 2019-05-28 18:21 | PRG ---
DATE OF SERVICE: 05/28/2019 SUBJECTIVE: Little bit confused. Less dyspneic. No chest pain. No abdominal pain. Indwelling Francisco catheter. He has had negative I's and O's for the past 3 days. OBJECTIVE: VITAL SIGNS: His temperature has been normal. GENERAL: Awake, alert, oriented to himself. Did not know where he was. LUNGS: Symmetric. Clear breath sounds. HEART: S1 and S2. Regular rate. ABDOMEN: Soft. Not distended or tender. EXTREMITIES: Below-knee amputation sites with the right side yet covered by the dressing was not removed because of tenderness. LABORATORY DATA: White cell count is at 35,000, hemoglobin 9.4, platelets 963, 93% neutrophils, 1% bands. Sodium 138, creatinine 0.72. Procalcitonin 0.13. Two sets of blood cultures and urine culture, no growth at 48 hours. Repeat chest x-ray with improving multifocal areas of infiltrate. ASSESSMENT AND PLAN: Peripheral vascular disease, bilateral below-knee amputations, neutrophilia, chronic smoking, chronic obstructive pulmonary disease, bilateral infiltrates, ischemic cardiomyopathy, likely elevated BNP. In view of the normal procalcitonin, the possibility of pulmonary edema becomes more likely than an infectious pneumonitis. The question regarding the viability of the BKA stump will continue to be a concern. He did have quite a bit of hemorrhagic areas there, and those may become necrotic. He still has marked neutrophilia. In view of the peripheral vascular disease, other complications related to his vascular insufficiency will remain a concern, but thus far, there is no evidence to indicate an intra-abdominal inflammatory process. Job ID: [id number]
[2019-05-28] MEDS: Atorvastatin Calcium 20 MG TAB PO SCH (20:33)
[2019-05-29] MEDS: Vancomycin HCl 750 MG in Sodium Chloride 0.9% 250 ML 250 ML IVPB SCH ×2 (05:39→13:15)
[2019-05-29] MEDS: oxyCODONE 5 MG TAB PO PRN ×3 (05:59→16:29)
[2019-05-29 06:04] LABS: Mean Corpuscular HGB CONC 30.1 g/dL (32.0-36.0); Mean Corpuscular Hemoglobin 21.9 pg (27.0-31.0); Mean Corpuscular Volume 72.8 fL (78.0-98.0); Mean Platelet Volume 7.2 fL (7.4-10.4); Platelet Count 913 thou/uL (130-400); RBC Distribution Width 17.7 % (11.5-14.5); Red Blood Cell (RBC) Count 3.67 mill/uL (4.70-6.10); White Blood Cell (WBC) Count 29.2 thou/uL (4.8-10.8)
[2019-05-29 06:22] LABS: Anion Gap 10 mmol/L (10-20); BUN (Urea Nitrogen) 16 mg/dL (8.4-25.7); Calc. Creatinine Clearance 76 mL/min (70-130); Calcium 8.3 mg/dL (7.8-10.44); Carbon Dioxide 32 mmol/L (23-31); Chloride 94 mmol/L (98-107); Estimated GFR-MDRD Greater than 90; Glucose 111 mg/dL (80-115); Sodium 133 mmol/L (136-145)
[2019-05-29 06:35] LABS: Band 7 % (5-11); Eosinophils 1 % (0-10); Lymphocytes 1 % (21-51); MDiff Complete? YES; Monocytes 5 % (0-10); Neutrophil 86 % (42-75); Platelet Morphology Comment Appears Increased
[2019-05-29] MEDS: Piperacillin/Tazobactam 3.375 GM in Sodium Chloride 0.9% 100 ML IVPB SCH ×3 (06:56→18:23)
[2019-05-29] MEDS: Mometasone/Formoterol 120 PUFF INHALER INH SCH ×2 (07:42→19:20)
--- NOTE | 2019-05-29 08:44 | PRG ---
DATE OF SERVICE: 05/29/2019 SUBJECTIVE: This morning, he is awake, alert, and responsive. His white count is 29,000, H and H unremarkable. Lytes are normal. X-ray still shows rather impressive right-sided infiltrate. Though, he is afebrile and so far cultures are negative. OBJECTIVE: CHEST: Bilateral crackles. CARDIAC: Normal S1 and S2. No gallops. ABDOMEN: No masses. IMPRESSION: 1. Bilateral below-knee amputation. 2. Sepsis, urinary tract infection. 3. Pneumonia. PLAN: Antibiotics per Infectious Disease. He can be transferred out of the ICU. PT, supportive care. Job ID: [id number]
[2019-05-29] MEDS: Potassium Chloride 20 MEQ TAB PO SCH ×2 (09:36→18:23)
[2019-05-29] MEDS: predniSONE 20 MG TAB PO SCH (09:37)
[2019-05-29] MEDS: Amiodarone 200 MG TAB PO SCH ×2 (09:37→21:12)
[2019-05-29] MEDS: Clopidogrel Bisulfate 75 MG TAB PO SCH (09:37)
[2019-05-29] MEDS: guaiFENesin ER 600 MG TAB PO SCH ×2 (09:37→21:09)
[2019-05-29] MEDS: Aspirin Chewable 81 MG TAB PO SCH (09:38)
[2019-05-29] MEDS: Famotidine/PF 20 mg/2ml Vial SLOW IVP SCH ×2 (09:38→21:12)
[2019-05-29] MEDS: Heparin 5,000 UNITS/ML VIAL SC SCH ×2 (09:38→21:12)
--- NOTE | 2019-05-29 09:38 | EKG ---
Test Reason : SHORTNESS OF BREATH Blood Pressure : / mmHG Vent. Rate : 074 BPM Atrial Rate : 074 BPM P-R Int : 184 ms QRS Dur : 088 ms QT Int : 430 ms P-R-T Axes : 048 088 121 degrees QTc Int : 477 ms Normal sinus rhythm Nonspecific T wave abnormality Prolonged QT Abnormal ECG Confirmed by JEB DAWSON ([id number]), television news video editor CHRISTIN PERES ([id number]) on 05/29/2019 9:38:21 AM Referred By: Confirmed By:JEB DAWSON
--- NOTE | 2019-05-29 14:07 | PDOC.PN ---
- Subjective Encounter Start Date: 05/29/19 Encounter Start Time: 14:03 Subjective: Admitted from inpatient rehab due to worsening SOB. -: Feeling better with antibiotics and diuretics. - Objective Resuscitation Status - Order Detail: 05/25/19 14:55 Resuscitation Status Routine Resuscitation Status: FULL: Full Resuscitation Discussed with: discussed w pt Vital Signs & Weight: Vital Signs (12 hours) Temp Pulse Resp BP Pulse Ox 05/29/19 11:16 81 14 99 05/29/19 08:00 97.5 F L 84 23 H 107/71 98 05/29/19 07:43 99 05/29/19 07:39 79 22 H 99 05/29/19 04:10 82 19 97 05/29/19 04:00 98.5 F Weight Admit Weight 119 lb 14.4 oz Weight 110 lb 11.2 oz Most Recent Monitor Data Heart Rate from ECG 81 NIBP 121/86 NIBP BP-Mean 97 Respiration from ECG 23 SpO2 98 I&O: 05/28/19 05/29/19 05/30/19 06:59 06:59 06:59 Intake Total 1770 2500 Output Total 2600 6500 Balance -830 -4000 Result Diagrams: 05/29/19 05:52 05/29/19 05:52 Phys Exam - Physical Examination Constitutional: NAD HEENT: moist MMs Neck: no JVD, supple Respiratory: no rhonchi fair air entry with some transmitted sound. Cardiovascular: RRR Gastrointestinal: soft, non-tender, no distention, positive bowel sounds Musculoskeletal: no edema Bilateral BKA noted. multiple necrotic skin areas on and around R stump Neurological: moves all 4 limbs Psychiatric: normal affect, A&O x 3 Dx/Plan (1) Acute CHF Code(s): I50.9 - HEART FAILURE, UNSPECIFIED Status: Acute (2) Protein-calorie malnutrition, moderate Code(s): E44.0 - MODERATE PROTEIN-CALORIE MALNUTRITION Status: Acute (3) Acute respiratory failure with hypoxia Code(s): J96.01 - ACUTE RESPIRATORY FAILURE WITH HYPOXIA Status: Acute Comment: Continue O2 support, see above (4) COPD exacerbation Code(s): J44.1 - CHRONIC OBSTRUCTIVE PULMONARY DISEASE W (ACUTE) EXACERBATION Status: Acute Comment: See above for mgmt (5) Hypokalemia Code(s): E87.6 - HYPOKALEMIA Status: Acute Comment: KCL supplementation, serial K+ monitoring (6) Neutrophilic leukocytosis Code(s): D72.9 - DISORDER OF WHITE BLOOD CELLS, UNSPECIFIED Status: Acute Comment: Worse due to steroids, converted to Prednisone, serial monitoring (7) Pneumonia, bacterial Code(s): J15.9 - UNSPECIFIED BACTERIAL PNEUMONIA Status: Acute Comment: Bilateral involvement per CT chest, continue Vanc/Zosyn, Duonebs, Prednisone, suspected gm + cocci (8) Toxic metabolic encephalopathy Code(s): G92 - TOXIC ENCEPHALOPATHY Status: Acute Comment: Secondary to #1, supportive mgmt, re-orientation techniques, improving (9) Peripheral vascular disease Code(s): I73.9 - PERIPHERAL VASCULAR DISEASE, UNSPECIFIED Status: Chronic Comment: Continue anti-platelet therapy - Plan Replete serum potassium. get serum magnesium and replete if low -: Start oral supplementation. -: Continue to hold diuretic. awaiting echo -: Continue antibiotics. * .
[2019-05-29] MEDS ORDERED: Potassium Chloride 20 MEQ TAB PO SCH (14:15)
[2019-05-29] MEDS: Atorvastatin Calcium 20 MG TAB PO SCH (21:12)
[2019-05-29] MEDS: Vancomycin HCl 1 GM in Premix Bag 1 BAG IVPB SCH (21:13)
[2019-05-30] MEDS: Piperacillin/Tazobactam 3.375 GM in Sodium Chloride 0.9% 100 ML IVPB SCH ×4 (00:32→17:33)
[2019-05-30] MEDS: oxyCODONE 5 MG TAB PO PRN ×4 (02:38→21:02)
[2019-05-30 06:49] LABS: Anion Gap 10 mmol/L (10-20); BUN (Urea Nitrogen) 12 mg/dL (8.4-25.7); Calc. Creatinine Clearance 79 mL/min (70-130); Calcium 7.7 mg/dL (7.8-10.44); Carbon Dioxide 31 mmol/L (23-31); Chloride 95 mmol/L (98-107); Estimated GFR-MDRD Greater than 90; Glucose 82 mg/dL (80-115); Magnesium 1.4 mg/dL (1.6-2.6); Sodium 133 mmol/L (136-145)
[2019-05-30 06:50] LABS: Band 1 % (5-11); Hemoglobin 8.2 g/dL (14.0-18.0); Hypochromia SLIGHT = 6-15 cells (100X) (0-5/hpf); Lymphocytes 1 % (21-51); MDiff Complete? YES; Mean Corpuscular HGB CONC 30.9 g/dL (32.0-36.0); Mean Corpuscular Hemoglobin 22.4 pg (27.0-31.0); Mean Corpuscular Volume 72.6 fL (78.0-98.0); Mean Platelet Volume 7.8 fL (7.4-10.4); Microcytosis SLIGHT = 6-15 cells (100X) (0-5/hpf); Monocytes 7 % (0-10); Neutrophil 91 % (42-75); Platelet Count 754 thou/uL (130-400); Platelet Morphology Comment Appears Increased; Polychromasia SLIGHT = 2-3 cells (100X) (0-2/hpf); RBC Distribution Width 17.9 % (11.5-14.5); Red Blood Cell (RBC) Count 3.67 mill/uL (4.70-6.10); White Blood Cell (WBC) Count 22.8 thou/uL (4.8-10.8)
[2019-05-30 06:52] LABS: Potassium 2.6 mmol/L (3.5-5.1)
[2019-05-30] MEDS: Mometasone/Formoterol 120 PUFF INHALER INH SCH ×2 (07:07→18:30)
[2019-05-30] MEDS ORDERED: Potassium Chloride 20 MEQ in Premix Bag 1 BAG IVPB SCH (08:00)
[2019-05-30] MEDS ORDERED: Potassium Chloride 20 MEQ TAB PO SCH (08:00)
[2019-05-30] MEDS ORDERED: Potassium Chloride 40 MEQ in Premix Bag 1 BAG IVPB SCH (08:00)
[2019-05-30] MEDS: Vancomycin HCl 1 GM in Premix Bag 1 BAG IVPB SCH ×2 (08:48→21:04)
[2019-05-30] MEDS: Potassium Chloride 20 MEQ TAB PO SCH ×4 (08:50→21:06)
[2019-05-30] MEDS: Clopidogrel Bisulfate 75 MG TAB PO SCH (08:51)
[2019-05-30] MEDS: predniSONE 20 MG TAB PO SCH (08:51)
[2019-05-30] MEDS: Aspirin Chewable 81 MG TAB PO SCH (08:51)
[2019-05-30] MEDS: guaiFENesin ER 600 MG TAB PO SCH ×2 (08:51→21:04)
[2019-05-30] MEDS: Famotidine/PF 20 mg/2ml Vial SLOW IVP SCH ×2 (08:51→21:03)
[2019-05-30] MEDS: Amiodarone 200 MG TAB PO SCH ×2 (08:51→21:04)
[2019-05-30] MEDS: Heparin 5,000 UNITS/ML VIAL SC SCH ×2 (08:52→21:03)
--- NOTE | 2019-05-30 10:10 | PRG ---
DATE OF SERVICE: 05/30/2019 SUBJECTIVE: Jason Romeo this morning, awake, alert, and responsive, leg pain. OBJECTIVE: VITAL SIGNS: Saturations are 97% on room air, temperature 98, pulse 78, and blood pressure 135/99. No shortness of breath. CHEST: Decreased breath sounds. No wheezing. CARDIAC: Normal S1 and S2. ABDOMEN: No masses. LABORATORY DATA: White count is decreased to 22,000. IMPRESSION: Sepsis syndrome, urinary tract infection, wound infection, and pneumonia. Antibiotics per Infectious Disease. Pulmonary will follow while in the MICU. Job ID: [id number]
[2019-05-30] MEDS ORDERED: Magnesium 2 GM/50 ML 2 GM in Premix Bag 1 BAG IVPB SCH (13:30)
[2019-05-30] MEDS ORDERED: Magnesium Sulfate 4 GM in Sodium Chloride 0.9% 250 ML 250 ML IVPB SCH (13:45)
--- NOTE | 2019-05-30 14:01 | PDOC.PN ---
- Subjective Encounter Start Date: 05/30/19 Encounter Start Time: 13:59 Subjective: No new problem. Feeling better. Less SOB -: Tolerating oral intake, - Objective Resuscitation Status - Order Detail: 05/25/19 14:55 Resuscitation Status Routine Resuscitation Status: FULL: Full Resuscitation Discussed with: discussed w pt Vital Signs & Weight: Vital Signs (12 hours) Temp Pulse Resp Pulse Ox 05/30/19 11:18 68 16 99 05/30/19 11:12 97.6 F 05/30/19 08:00 97 05/30/19 07:14 98.0 F 05/30/19 07:10 92 L 05/30/19 07:05 74 14 92 L 05/30/19 03:39 98.3 F Weight Admit Weight 119 lb 14.4 oz Weight 110 lb 11.2 oz Most Recent Monitor Data Heart Rate from ECG 66 NIBP 132/70 NIBP BP-Mean 90 Respiration from ECG 11 SpO2 100 I&O: 05/29/19 05/30/19 05/31/19 06:59 06:59 06:59 Intake Total 2500 499 Output Total 6500 900 Balance -4000 -401 Result Diagrams: 05/30/19 05:45 05/30/19 05:45 Phys Exam - Physical Examination chronically ill looking HEENT: moist MMs Neck: no JVD, supple Respiratory: no rales, no rhonchi fair air entry bilaterally with transmitted sound Cardiovascular: RRR Gastrointestinal: soft, non-tender, no distention, positive bowel sounds Francisco catheter in place Musculoskeletal: no edema bilateral BKA noted Neurological: non-focal, moves all 4 limbs awake and conversational Psychiatric: normal affect, A&O x 3 Dx/Plan (1) Acute CHF Code(s): I50.9 - HEART FAILURE, UNSPECIFIED Status: Acute Comment: Awaiting Echo report. (2) Protein-calorie malnutrition, moderate Code(s): E44.0 - MODERATE PROTEIN-CALORIE MALNUTRITION Status: Acute (3) Acute respiratory failure with hypoxia Code(s): J96.01 - ACUTE RESPIRATORY FAILURE WITH HYPOXIA Status: Acute Comment: Continue O2 support, see above (4) COPD exacerbation Code(s): J44.1 - CHRONIC OBSTRUCTIVE PULMONARY DISEASE W (ACUTE) EXACERBATION Status: Acute Comment: See above for mgmt (5) Hypokalemia Code(s): E87.6 - HYPOKALEMIA Status: Acute Comment: Persistent. Hypomagnesemia is contributory (6) Neutrophilic leukocytosis Code(s): D72.9 - DISORDER OF WHITE BLOOD CELLS, UNSPECIFIED Status: Acute Comment: Worse due to steroids, converted to Prednisone, serial monitoring (7) Pneumonia, bacterial Code(s): J15.9 - UNSPECIFIED BACTERIAL PNEUMONIA Status: Acute Comment: Bilateral involvement per CT chest, continue Vanc/Zosyn, Duonebs, Prednisone, suspected gm + cocci (8) Toxic metabolic encephalopathy Code(s): G92 - TOXIC ENCEPHALOPATHY Status: Acute Comment: Secondary to #1, supportive mgmt, re-orientation techniques, improving (9) Peripheral vascular disease Code(s): I73.9 - PERIPHERAL VASCULAR DISEASE, UNSPECIFIED Status: Chronic Comment: Continue anti-platelet therapy (10) Hypomagnesemia Code(s): E83.42 - HYPOMAGNESEMIA Status: Acute - Plan Continue antibiotics. -: Replete serum potassium and magnesium -: Follow electrolytes. -: Awaiting Echo report. -: Transfer patient to [facility]. Continue nutitional rehabilitation. * .
[2019-05-30] MEDS: Atorvastatin Calcium 20 MG TAB PO SCH (21:04)
[2019-05-31] MEDS: Piperacillin/Tazobactam 3.375 GM in Sodium Chloride 0.9% 100 ML IVPB SCH ×5 (00:56→23:59)
[2019-05-31] MEDS: oxyCODONE 5 MG TAB PO PRN ×3 (02:55→11:59)
[2019-05-31 05:36] LABS: Hemoglobin 8.9 g/dL (14.0-18.0); Mean Corpuscular HGB CONC 30.5 g/dL (32.0-36.0); Mean Corpuscular Hemoglobin 22.3 pg (27.0-31.0); Mean Corpuscular Volume 73.2 fL (78.0-98.0); Mean Platelet Volume 7.7 fL (7.4-10.4); Platelet Count 698 thou/uL (130-400); RBC Distribution Width 17.9 % (11.5-14.5); Red Blood Cell (RBC) Count 3.97 mill/uL (4.70-6.10); White Blood Cell (WBC) Count 25.4 thou/uL (4.8-10.8)
[2019-05-31 05:51] LABS: Band 2 % (5-11); Elliptocytes SLIGHT = 2-5 cells (100X) (0-1/hpf); Lymphocytes 3 % (21-51); MDiff Complete? YES; Metamyelocyte 1 % (0-0); Microcytosis SLIGHT = 6-15 cells (100X) (0-5/hpf); Monocytes 7 % (0-10); Neutrophil 87 % (42-75); Platelet Morphology Comment Appears Increased; Tear Drops SLIGHT = 2-5 cells (100X) (0-1/hpf)
[2019-05-31 05:56] LABS: Anion Gap 9 mmol/L (10-20); BUN (Urea Nitrogen) 9 mg/dL (8.4-25.7); Calc. Creatinine Clearance 83 mL/min (70-130); Calcium 8.1 mg/dL (7.8-10.44); Carbon Dioxide 25 mmol/L (23-31); Chloride 101 mmol/L (98-107); Estimated GFR-MDRD Greater than 90; Glucose 89 mg/dL (80-115); Potassium 4.7 mmol/L (3.5-5.1); Sodium 130 mmol/L (136-145)
[2019-05-31] MEDS: Mometasone/Formoterol 120 PUFF INHALER INH SCH ×2 (07:24→18:39)
[2019-05-31] MEDS: Amiodarone 200 MG TAB PO SCH ×2 (08:10→20:59)
[2019-05-31] MEDS: Clopidogrel Bisulfate 75 MG TAB PO SCH (08:10)
[2019-05-31] MEDS: guaiFENesin ER 600 MG TAB PO SCH ×2 (08:10→20:59)
[2019-05-31] MEDS: predniSONE 20 MG TAB PO SCH (08:10)
[2019-05-31] MEDS: Aspirin Chewable 81 MG TAB PO SCH (08:10)
[2019-05-31] MEDS: Famotidine/PF 20 mg/2ml Vial SLOW IVP SCH ×2 (08:10→20:59)
[2019-05-31] MEDS: Vancomycin HCl 1 GM in Premix Bag 1 BAG IVPB SCH ×2 (08:11→09:43)
[2019-05-31] MEDS: Heparin 5,000 UNITS/ML VIAL SC SCH ×2 (08:11→20:59)
[2019-05-31 09:35] LABS: Vancomycin, Trough 38.3 ug/mL
--- NOTE | 2019-05-31 11:05 | PRG ---
DATE OF SERVICE: 05/31/2019 SUBJECTIVE: Jason Romeo is a 64-year-old gentleman. This morning, he said he is better. OBJECTIVE: VITAL SIGNS: Saturations are 99% on 3 L, blood pressure 109/54, pulse 70, respiratory rate 18. CHEST: No wheezing or crackles. CARDIAC: Normal S1 and S2. No gallops. ABDOMEN: No masses. LABORATORY DATA: White count is down to 25,000. His lytes are normal. Sodium is 130. ASSESSMENT: 1. Pneumonia. 2. Congestive heart failure. 3. Chronic obstructive pulmonary disease. 4. Sepsis syndrome. PLAN: Pulmonary thompson, once again, he will be transferred out of the MICU to an unmonitored bed. Disposition as per Infectious Disease. Job ID: [id number]
--- NOTE | 2019-05-31 13:50 | PDOC.PN ---
- Subjective Encounter Start Date: 05/31/19 Encounter Start Time: 13:48 Subjective: No new problem. -: SOB has subsided. - Objective Resuscitation Status - Order Detail: 05/25/19 14:55 Resuscitation Status Routine Resuscitation Status: FULL: Full Resuscitation Discussed with: discussed w pt Vital Signs & Weight: Vital Signs (12 hours) Temp Pulse Resp Pulse Ox 05/31/19 11:01 97.5 F L 05/31/19 10:45 68 18 97 05/31/19 08:00 99 05/31/19 07:37 99 05/31/19 07:23 79 18 99 05/31/19 07:21 98.0 F 05/31/19 04:00 98.1 F Weight Admit Weight 119 lb 14.4 oz Weight 110 lb 11.2 oz Most Recent Monitor Data Heart Rate from ECG 72 NIBP 146/74 NIBP BP-Mean 98 Respiration from ECG 18 SpO2 95 I&O: 05/30/19 05/31/19 06/01/19 06:59 06:59 06:59 Intake Total 499 2280 Output Total 900 1750 Balance -401 530 Result Diagrams: 05/31/19 05:14 05/31/19 05:14 Phys Exam - Physical Examination Constitutional: NAD afebrile HEENT: moist MMs Neck: no JVD, supple fair air entry bilaterally Cardiovascular: RRR systolic murmur noted Gastrointestinal: soft, non-tender, no distention, positive bowel sounds liao catheter in place bilateral BKA noted Neurological: non-focal, moves all 4 limbs Psychiatric: A&O x 3 Dx/Plan (1) Pneumonia, bacterial Code(s): J15.9 - UNSPECIFIED BACTERIAL PNEUMONIA Status: Acute Comment: Bilateral involvement per CT chest, continue Vanc/Zosyn, Duonebs, Prednisone, suspected gm + cocci (2) Acute CHF Code(s): I50.9 - HEART FAILURE, UNSPECIFIED Status: Acute Comment: Awaiting Echo report. (3) Protein-calorie malnutrition, moderate Code(s): E44.0 - MODERATE PROTEIN-CALORIE MALNUTRITION Status: Acute (4) Acute respiratory failure with hypoxia Code(s): J96.01 - ACUTE RESPIRATORY FAILURE WITH HYPOXIA Status: Acute Comment: Continue O2 support, see above (5) COPD exacerbation Code(s): J44.1 - CHRONIC OBSTRUCTIVE PULMONARY DISEASE W (ACUTE) EXACERBATION Status: Acute Comment: See above for mgmt (6) Hypokalemia Code(s): E87.6 - HYPOKALEMIA Status: Acute Comment: Persistent. Hypomagnesemia is contributory (7) Neutrophilic leukocytosis Code(s): D72.9 - DISORDER OF WHITE BLOOD CELLS, UNSPECIFIED Status: Acute Comment: Worse due to steroids, converted to Prednisone, serial monitoring (8) Toxic metabolic encephalopathy Code(s): G92 - TOXIC ENCEPHALOPATHY Status: Acute Comment: Secondary to #1, supportive mgmt, re-orientation techniques, improving (9) Peripheral vascular disease Code(s): I73.9 - PERIPHERAL VASCULAR DISEASE, UNSPECIFIED Status: Chronic Comment: Continue anti-platelet therapy (10) Hypomagnesemia Code(s): E83.42 - HYPOMAGNESEMIA Status: Acute (11) Sepsis Code(s): A41.9 - SEPSIS, UNSPECIFIED ORGANISM Status: Acute Comment: Present on admission. - Plan Continue current antibiotics. -: Hold Vancomycin due to high trough. recheck level in the am -: Transfer to medical floor. * .
[2019-05-31] MEDS: HYDROcodone/Acetaminophen 5/325 mg Tablet PO PRN (20:58)
[2019-05-31] MEDS: Atorvastatin Calcium 20 MG TAB PO SCH (20:59)
[2019-06-01] MEDS: Acetaminophen 325 MG TAB PO PRN ×2 (00:40→07:27)
[2019-06-01] MEDS: HYDROcodone/Acetaminophen 5/325 mg Tablet PO PRN ×4 (04:18→21:14)
[2019-06-01] MEDS: Piperacillin/Tazobactam 3.375 GM in Sodium Chloride 0.9% 100 ML IVPB SCH ×3 (04:26→18:08)
[2019-06-01 04:59] LABS: Hemoglobin 9.3 g/dL (14.0-18.0); Hypochromia SLIGHT = 6-15 cells (100X) (0-5/hpf); Lymphocytes 5 % (21-51); MDiff Complete? YES; Mean Corpuscular HGB CONC 30.3 g/dL (32.0-36.0); Mean Corpuscular Volume 72.6 fL (78.0-98.0); Mean Platelet Volume 7.6 fL (7.4-10.4); Microcytosis SLIGHT = 6-15 cells (100X) (0-5/hpf); Monocytes 5 % (0-10); Neutrophil 90 % (42-75); Platelet Count 747 thou/uL (130-400); Platelet Morphology Comment Appears Increased; RBC Distribution Width 18.3 % (11.5-14.5); Red Blood Cell (RBC) Count 4.24 mill/uL (4.70-6.10); White Blood Cell (WBC) Count 25.2 thou/uL (4.8-10.8)
[2019-06-01 05:00] LABS: Anion Gap 11 mmol/L (10-20); BUN (Urea Nitrogen) 9 mg/dL (8.4-25.7); Calc. Creatinine Clearance 76 mL/min (70-130); Carbon Dioxide 23 mmol/L (23-31); Chloride 98 mmol/L (98-107); Estimated GFR-MDRD Greater than 90; Glucose 87 mg/dL (80-115); Iron Binding Capacity, Total 190 mcg/dL (261-462); Magnesium 1.6 mg/dL (1.6-2.6); Potassium 4.2 mmol/L (3.5-5.1); Sodium 128 mmol/L (136-145)
[2019-06-01 05:08] LABS: Iron 26 ug/dL (65-175); Iron Binding Capacity, Total 189 mcg/dL (261-462)
[2019-06-01] MEDS: Mometasone/Formoterol 120 PUFF INHALER INH SCH ×2 (06:41→18:19)
[2019-06-01] MEDS: Famotidine/PF 20 mg/2ml Vial SLOW IVP SCH ×2 (08:22→21:12)
[2019-06-01] MEDS: Heparin 5,000 UNITS/ML VIAL SC SCH ×2 (08:22→21:12)
[2019-06-01] MEDS: guaiFENesin ER 600 MG TAB PO SCH ×2 (08:23→21:11)
[2019-06-01] MEDS: Amiodarone 200 MG TAB PO SCH ×2 (08:23→21:12)
[2019-06-01] MEDS: predniSONE 20 MG TAB PO SCH (08:23)
[2019-06-01] MEDS: Clopidogrel Bisulfate 75 MG TAB PO SCH (08:23)
[2019-06-01] MEDS: Aspirin Chewable 81 MG TAB PO SCH (08:24)
[2019-06-01] MEDS ORDERED: Vancomycin HCl 1 GM in Premix Bag 1 BAG IVPB SCH (09:00)
[2019-06-01 09:02] LABS: Vancomycin, Random 12.5 ug/mL (See Comment)
--- NOTE | 2019-06-01 10:49 | PDOC.PN ---
- Subjective Encounter Start Date: 06/01/19 Encounter Start Time: 10:47 Patient seen and examined, no new issues. - Objective Resuscitation Status - Order Detail: 05/25/19 14:55 Resuscitation Status Routine Resuscitation Status: FULL: Full Resuscitation Discussed with: discussed w pt Vital Signs & Weight: Vital Signs (12 hours) Temp Pulse Resp BP Pulse Ox 06/01/19 10:26 77 16 95 06/01/19 08:26 97.6 F 77 20 125/78 95 06/01/19 08:00 95 06/01/19 06:40 71 96 06/01/19 04:00 97.6 F 71 18 146/73 H 94 L 06/01/19 00:00 97.5 F L 71 18 146/75 H 95 Weight Admit Weight 119 lb 14.4 oz Weight 110 lb 11.2 oz Most Recent Monitor Data Heart Rate from ECG 74 NIBP 136/75 NIBP BP-Mean 95 Respiration from ECG 20 SpO2 96 I&O: 05/31/19 06/01/19 06/02/19 06:59 06:59 06:59 Intake Total 2280 1000 400 Output Total 1750 1500 Balance 530 -500 400 Result Diagrams: 06/01/19 04:30 06/01/19 04:30 Phys Exam - Physical Examination Constitutional: NAD HEENT: PERRLA, moist MMs, sclera anicteric Neck: no nodes, no JVD, supple Respiratory: no wheezing, no rales, no rhonchi Cardiovascular: RRR, no significant murmur, no rub Gastrointestinal: soft, non-tender, no distention, positive bowel sounds B/L BKA Dx/Plan (1) Acute CHF Code(s): I50.9 - HEART FAILURE, UNSPECIFIED Status: Acute Comment: Awaiting Echo report. (2) COPD exacerbation Code(s): J44.1 - CHRONIC OBSTRUCTIVE PULMONARY DISEASE W (ACUTE) EXACERBATION Status: Acute Comment: See above for mgmt (3) Toxic metabolic encephalopathy Code(s): G92 - TOXIC ENCEPHALOPATHY Status: Acute Comment: Secondary to #1, supportive mgmt, re-orientation techniques, improving (4) Peripheral vascular disease Code(s): I73.9 - PERIPHERAL VASCULAR DISEASE, UNSPECIFIED Status: Chronic Comment: Continue anti-platelet therapy - Plan * cont current plan of care * PT/OT evaluation * CM consult for rehab vs SNF placement * DC once placement arranged * pain management * case and plan d/w patient at length, he understood and agreed with this plan.
--- NOTE | 2019-06-01 15:55 | PRG ---
DATE OF SERVICE: 05/31/2019 SUBJECTIVE: Mr. Romeo is sitting in bed. He is awake, appears in no distress. No headaches. No chest pain. No cough. No sputum production, maybe a little bit of sputum production. No abdominal pain or diarrhea. OBJECTIVE: VITAL SIGNS: He has been afebrile since admission. BP 130/75, pulse 74, respirations 17, O2 saturation 99. GENERAL: Awake, alert, oriented. LUNGS: Symmetric air entry. Very faint inspiratory crackles, right base. HEART: S1 and S2, regular rate. ABDOMEN: Soft, not distended. EXTREMITIES: His right BKA site is very tender and I am not sure regarding the viability of this area. LABORATORY DATA: His lab data shows persistence of leukocytosis of 25.4, hemoglobin 8.9, platelets 698, 87% neutrophils and sodium 130, creatinine 0.65. Two sets of blood culture, no growth in 5 days. The procalcitonin was normal. ASSESSMENT AND DISCUSSION: Peripheral vascular disease, bilateral below knee amputations, neutrophilia, chronic smoking, chronic obstructive pulmonary disease, bilateral infiltrates, ischemic cardiomyopathy, elevated BNP, normal procalcitonin. In view of the persistence of neutrophilia, pretty much the same or even worsened on admission, possibility of noninfectious cause for the pulmonary infiltrates needs to be considered. He seems to be improving nonetheless. No other areas of inflammatory process. I am not sure the right BKA site is viable. We will have to continue closely monitoring. He may require revision to an AKA amputation. Job ID: [id number]
[2019-06-01] MEDS: Atorvastatin Calcium 20 MG TAB PO SCH (21:12)
[2019-06-02] MEDS: Piperacillin/Tazobactam 3.375 GM in Sodium Chloride 0.9% 100 ML IVPB SCH ×5 (00:21→23:55)
[2019-06-02] MEDS: HYDROcodone/Acetaminophen 5/325 mg Tablet PO PRN ×5 (01:31→23:08)
[2019-06-02] MEDS: Mometasone/Formoterol 120 PUFF INHALER INH SCH ×2 (06:52→18:26)
[2019-06-02 07:04] LABS: Mean Corpuscular HGB CONC 30.4 g/dL (32.0-36.0); Mean Corpuscular Hemoglobin 21.7 pg (27.0-31.0); Mean Corpuscular Volume 71.3 fL (78.0-98.0); Mean Platelet Volume 8.4 fL (7.4-10.4); Platelet Count 608 thou/uL (130-400); RBC Distribution Width 18.7 % (11.5-14.5); Red Blood Cell (RBC) Count 4.62 mill/uL (4.70-6.10); White Blood Cell (WBC) Count 22.4 thou/uL (4.8-10.8)
[2019-06-02 07:19] LABS: Anion Gap 11 mmol/L (10-20); BUN (Urea Nitrogen) 7 mg/dL (8.4-25.7); Calc. Creatinine Clearance 74 mL/min (70-130); Carbon Dioxide 22 mmol/L (23-31); Chloride 100 mmol/L (98-107); Estimated GFR-MDRD Greater than 90; Glucose 76 mg/dL (80-115); Potassium 3.7 mmol/L (3.5-5.1); Sodium 129 mmol/L (136-145)
[2019-06-02 07:25] LABS: Band 1 % (5-11); Hypochromia SLIGHT = 6-15 cells (100X) (0-5/hpf); Lymphocytes 10 % (21-51); MDiff Complete? YES; Metamyelocyte 1 % (0-0); Microcytosis MODERATE=15-30 cells (100X) (0-5/hpf); Neutrophil 88 % (42-75); Platelet Morphology Comment Appears Increased; Polychromasia SLIGHT = 2-3 cells (100X) (0-2/hpf); Target Cells SLIGHT = 2-5 cells (100X) (0-1/hpf)
[2019-06-02] MEDS: Aspirin Chewable 81 MG TAB PO SCH (08:01)
[2019-06-02] MEDS: Clopidogrel Bisulfate 75 MG TAB PO SCH (08:01)
[2019-06-02] MEDS: Amiodarone 200 MG TAB PO SCH ×2 (08:01→20:01)
[2019-06-02] MEDS: predniSONE 20 MG TAB PO SCH (08:01)
[2019-06-02] MEDS: Heparin 5,000 UNITS/ML VIAL SC SCH ×2 (08:01→20:01)
[2019-06-02] MEDS: guaiFENesin ER 600 MG TAB PO SCH ×2 (08:01→20:00)
[2019-06-02] MEDS: Famotidine/PF 20 mg/2ml Vial SLOW IVP SCH ×2 (08:01→20:17)
--- NOTE | 2019-06-02 11:23 | PDOC.PN ---
- Subjective Encounter Start Date: 06/02/19 Encounter Start Time: 11:22 Patient seen and examined, no new issues. - Objective Resuscitation Status - Order Detail: 05/25/19 14:55 Resuscitation Status Routine Resuscitation Status: FULL: Full Resuscitation Discussed with: discussed w pt Vital Signs & Weight: Vital Signs (12 hours) Temp Pulse Resp BP Pulse Ox 06/02/19 10:30 75 16 95 06/02/19 07:52 97.5 F L 84 18 149/73 H 94 L 06/02/19 06:52 99 06/02/19 06:50 74 20 98 06/02/19 00:00 73 99 Weight Admit Weight 119 lb 14.4 oz Weight 110 lb 11.2 oz Most Recent Monitor Data Heart Rate from ECG 74 NIBP 136/75 NIBP BP-Mean 95 Respiration from ECG 20 SpO2 96 I&O: 06/01/19 06/02/19 06/03/19 06:59 06:59 06:59 Intake Total 1000 1300 Output Total 1500 1275 Balance -500 25 Result Diagrams: 06/02/19 06:44 06/02/19 06:44 Phys Exam - Physical Examination Constitutional: NAD HEENT: PERRLA, moist MMs, sclera anicteric Neck: no nodes, no JVD, supple Respiratory: no wheezing, no rales, no rhonchi Cardiovascular: RRR, no significant murmur, no rub Gastrointestinal: soft, non-tender, no distention Dx/Plan (1) Acute CHF Code(s): I50.9 - HEART FAILURE, UNSPECIFIED Status: Acute Comment: Awaiting Echo report. (2) COPD exacerbation Code(s): J44.1 - CHRONIC OBSTRUCTIVE PULMONARY DISEASE W (ACUTE) EXACERBATION Status: Acute Comment: See above for mgmt (3) Toxic metabolic encephalopathy Code(s): G92 - TOXIC ENCEPHALOPATHY Status: Acute Comment: Secondary to #1, supportive mgmt, re-orientation techniques, improving (4) Peripheral vascular disease Code(s): I73.9 - PERIPHERAL VASCULAR DISEASE, UNSPECIFIED Status: Chronic Comment: Continue anti-platelet therapy - Plan * pending placement * cont current plan of care * DC to facility once arrangements made * no changes in plan of care
[2019-06-02 12:53] VITALS: BMI 17.3
[2019-06-02] MEDS: Atorvastatin Calcium 20 MG TAB PO SCH (20:00)
[2019-06-02] MEDS: Cyclobenzaprine 10 MG TAB PO PRN (23:56)
[2019-06-03] MEDS: HYDROcodone/Acetaminophen 7.5/325 mg Tablet PO PRN ×5 (01:48→20:24)
[2019-06-03] MEDS: Piperacillin/Tazobactam 3.375 GM in Sodium Chloride 0.9% 100 ML IVPB SCH ×3 (05:20→17:30)
[2019-06-03 06:04] LABS: #Eosinphils 0.2 thou/uL (0.0-0.7); #Lymphocytes 1.5 thou/uL (1.20-3.40); #Monocytes 1.9 thou/uL (0.11-0.59); %Eosinophils 0.7 % (0.0-10.0); %Lymphocytes 6.1 % (21.0-51.0); %Monocytes 7.8 % (0.0-10.0); %Neutrophils 85.5 % (42.0-75.0); Hemoglobin 9.4 g/dL (14.0-18.0); Mean Corpuscular HGB CONC 30.6 g/dL (32.0-36.0); Mean Corpuscular Hemoglobin 22.3 pg (27.0-31.0); Mean Corpuscular Volume 72.8 fL (78.0-98.0); Mean Platelet Volume 7.5 fL (7.4-10.4); Platelet Count 677 thou/uL (130-400); RBC Distribution Width 18.9 % (11.5-14.5); Red Blood Cell (RBC) Count 4.23 mill/uL (4.70-6.10); White Blood Cell (WBC) Count 24.6 thou/uL (4.8-10.8)
[2019-06-03 06:21] LABS: Anion Gap 11 mmol/L (10-20); BUN (Urea Nitrogen) 7 mg/dL (8.4-25.7); Calc. Creatinine Clearance 75 mL/min (70-130); Carbon Dioxide 19 mmol/L (23-31); Chloride 101 mmol/L (98-107); Estimated GFR-MDRD Greater than 90; Glucose 81 mg/dL (80-115); Potassium 3.9 mmol/L (3.5-5.1); Sodium 127 mmol/L (136-145)
[2019-06-03] MEDS: Mometasone/Formoterol 120 PUFF INHALER INH SCH ×2 (07:45→18:40)
[2019-06-03] MEDS: Heparin 5,000 UNITS/ML VIAL SC SCH ×2 (08:56→20:26)
[2019-06-03] MEDS: Aspirin Chewable 81 MG TAB PO SCH (08:56)
[2019-06-03] MEDS: predniSONE 20 MG TAB PO SCH (08:56)
[2019-06-03] MEDS: Famotidine/PF 20 mg/2ml Vial SLOW IVP SCH ×2 (08:56→20:26)
[2019-06-03] MEDS: guaiFENesin ER 600 MG TAB PO SCH ×2 (08:56→20:35)
[2019-06-03] MEDS: Clopidogrel Bisulfate 75 MG TAB PO SCH (08:56)
[2019-06-03] MEDS: Amiodarone 200 MG TAB PO SCH ×2 (08:56→20:26)
--- NOTE | 2019-06-03 09:37 | CT ---
CT PELVIS WITHOUT CONTRAST: Date: 06/03/19 Multiple axial tomograms obtained through the pelvis without IV enhancement. INDICATION: Right hip pain. FINDINGS: Review of the osseous windows reveal mild degenerative changes at both hips. Mild joint narrowing and minimal subchondral cystic change seen in both femoral heads. There is minimal spurring noted. No fr acture. No lytic or blastic process. Review of soft tissues reveals a left ureteral stent in place. The lower pigtail is within the urinar y bladder. There is a Francisco catheter in place with a contracted bladder. The visualized bowel loops appear unremarkable. Aorta shows dense calcification. No mass or adenopath y. 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 Dense ca lcification indicating stenosis in the proximal superficial femoral arteries bilaterally and the femo ral profunda bilaterally. IMPRESSION: Mild symmetric degenerative changes at both hips. No acute osseous lesion. POS: OFF
[2019-06-03] MEDS: Cyclobenzaprine 10 MG TAB PO PRN (09:50)
--- NOTE | 2019-06-03 15:48 | PRG ---
DATE OF SERVICE: 06/03/2019 SUBJECTIVE: The patient is seen and examined at the bedside. He is still confused. He complains about right hip pain. Appetite is not that good. OBJECTIVE: VITAL SIGNS: Blood pressure is 139/78, pulse is 76, temperature is 97.7, respiratory rate is 16, O2 saturation is 99% on 2 L by nasal cannula. HEENT: His head is atraumatic and normocephalic. Pupils are responding to light properly. Sclerae are nonicteric. Oral mucosa is slightly dry. NECK: Supple. LUNGS: He has few rales at both bases. No wheezing. HEART: S1 and S2 normal. No S3. No S4. ABDOMEN: Soft, nontender, nondistended. EXTREMITIES: No clubbing, cyanosis, or edema. On the left side, there is [id number] amputation. On the right side, status with bruised stump and ruiz in place. LABORATORY DATA: Labs showed white count of 24.6, hemoglobin 9.4, hematocrit 30.8, platelet count is 677. Sodium of 127, potassium 3.9, chloride 101, CO2 of 19, BUN is 7, creatinine 0.72, glucose 81, calcium is 8.0. Microbiology, blood culture no growth 5 days. IMPRESSION: 1. Acute congestive heart failure. 2. Chronic obstructive pulmonary disease exacerbation. 3. Toxic metabolic encephalopathy. 4. Peripheral vascular disease. 5. Elevated white count of unclear etiology. We will obtain CT of the pelvis to rule out any infectious process in his right hip since he is complaining about this hip pain a lot. Also, we will consider to ask General Surgeon to see his right [id number] amputation status and treated for pneumonia with antibiotics, DuoNebs and prednisone, still on Zosyn his current regimen for now and we will discuss the case with Dr. Montero, who is one of the consultants for ID. Job ID: [id number]
--- NOTE | 2019-06-03 18:30 | PRG ---
DATE OF SERVICE: 06/03/2019 SUBJECTIVE: Mr. Romeo continues with severe pain in the right BKA stump. He has no sputum production, no chest pain, no abdominal pain, and no diarrhea. OBJECTIVE: VITAL SIGNS: T-max 98.3, blood pressure 130/78. GENERAL: He appears in distress from pain. HEENT: His ocular movements are conjugate. LUNGS: With faint wheezing but no crackles. Wheezing is noticed at the dependent areas of both right and left hemithorax. HEART: S1 and S2. ABDOMEN: Soft without tenderness. EXTREMITIES: At the right stump site, there was clear-cut necrosis of the skin extends to the prepatellar region and medial aspect of the right side. It is markedly painful. He cannot extend the knee. LABORATORY DATA: White cell count is still up at 24.6, hemoglobin 9.4, platelets 677. Sodium 127, creatinine 0.72. Blood culture, no growth. The patient had a pelvis CT, which showed some minor findings, but nothing of major significance. ASSESSMENT AND DISCUSSION: Peripheral vascular disease, bilateral below-knee amputations, recent one was done at [facility] by general surgeon; chronic smoking; chronic obstructive pulmonary disease; bilateral infiltrates, which have improved; ischemic cardiomyopathy; persistence of neutrophilia with marked pain in the right BKA site with evidence of necrosis of the stump. At this time, I would advise evaluation by surgeon for revision of the site. May need to have a revision to an AKA amputation, that is probably what is going to end up happening. Job ID: [id number]
[2019-06-03] MEDS: Atorvastatin Calcium 20 MG TAB PO SCH (20:23)
[2019-06-04] MEDS: HYDROcodone/Acetaminophen 7.5/325 mg Tablet PO PRN (00:40)
[2019-06-04] MEDS: Piperacillin/Tazobactam 3.375 GM in Sodium Chloride 0.9% 100 ML IVPB SCH ×4 (00:44→18:26)
--- NOTE | 2019-06-04 03:17 | CON ---
DATE OF CONSULTATION: 06/03/2019 HISTORY OF PRESENT ILLNESS: Mr. Romeo is a 64-year-old gentleman with an extensive past medical history. He apparently had a right below-knee amputation performed at [facility] [place] on May 21. His amputation is now gangrenous. He has a gangrenous spots on the his knee and 2 spots on his medial five. He also has a left below-knee amputation, which has healed nicely. I have been asked to see him for revision. PAST MEDICAL HISTORY: 1. Peripheral vascular disease. 2. Hypertension. 3. COPD. 4. Tobacco abuse. 5. Coronary artery disease. 6. History of migraines. PAST SURGICAL HISTORY: 1. Left femoral-popliteal bypass. 2. Bilateral leg amputations. SOCIAL HISTORY: Continues to smoke. REVIEW OF SYSTEMS: Not performed due to the patient being very non verbal right now. PHYSICAL EXAMINATION: GENERAL: This is an elderly, ill-appearing gentleman. VITAL SIGNS: Temperature is 97.7, pulse is 79 and regular, blood pressure is 139/78. LUNGS: Bilateral coarse breath sounds - he is being treated for pneumonia currently. HEART: Rhythm is regular. ABDOMEN: Soft and nontender. EXTREMITIES: As described above. ASSESSMENT: Gangrenous right below-knee amputation stump, which needs to be revised to an [id number] amputation. Job ID: [id number]
[2019-06-04] MEDS: Mometasone/Formoterol 120 PUFF INHALER INH SCH ×2 (06:37→18:39)
[2019-06-04 06:51] LABS: Anion Gap 16 mmol/L (10-20); BUN (Urea Nitrogen) 7 mg/dL (8.4-25.7); Calc. Creatinine Clearance 75 mL/min (70-130); Calcium 8.8 mg/dL (7.8-10.44); Carbon Dioxide 20 mmol/L (23-31); Chloride 100 mmol/L (98-107); Estimated GFR-MDRD Greater than 90; Glucose 61 mg/dL (80-115); Potassium 3.9 mmol/L (3.5-5.1); Sodium 132 mmol/L (136-145)
[2019-06-04 06:55] LABS: Hemoglobin 10.3 g/dL (14.0-18.0); Lymphocytes 6 % (21-51); MDiff Complete? YES; Mean Corpuscular HGB CONC 30.2 g/dL (32.0-36.0); Mean Corpuscular Hemoglobin 21.9 pg (27.0-31.0); Mean Corpuscular Volume 72.5 fL (78.0-98.0); Mean Platelet Volume 7.7 fL (7.4-10.4); Monocytes 3 % (0-10); Neutrophil 91 % (42-75); Platelet Count 660 thou/uL (130-400); Platelet Morphology Comment Appears Increased; RBC Distribution Width 19.4 % (11.5-14.5); Red Blood Cell (RBC) Count 4.71 mill/uL (4.70-6.10); White Blood Cell (WBC) Count 27.4 thou/uL (4.8-10.8)
[2019-06-04] MEDS: Heparin 5,000 UNITS/ML VIAL SC SCH ×2 (08:45→20:19)
[2019-06-04] MEDS: guaiFENesin ER 600 MG TAB PO SCH ×2 (08:45→20:20)
[2019-06-04] MEDS: predniSONE 20 MG TAB PO SCH (08:45)
[2019-06-04] MEDS: Famotidine/PF 20 mg/2ml Vial SLOW IVP SCH ×2 (08:45→20:19)
[2019-06-04] MEDS: Aspirin Chewable 81 MG TAB PO SCH (08:45)
[2019-06-04] MEDS: Clopidogrel Bisulfate 75 MG TAB PO SCH (08:45)
[2019-06-04] MEDS: Amiodarone 200 MG TAB PO SCH ×2 (08:45→20:20)
[2019-06-04] MEDS: Morphine 4 MG/ML VIAL SLOW IVP PRN (12:10)
--- NOTE | 2019-06-04 14:16 | PDOC.PN ---
- Subjective Encounter Start Date: 06/04/19 Encounter Start Time: 14:15 Patient seen and examined, foot pain at stump site, no other issues. - Objective Resuscitation Status - Order Detail: 05/25/19 14:55 Resuscitation Status Routine Resuscitation Status: FULL: Full Resuscitation Discussed with: discussed w pt Vital Signs & Weight: Vital Signs (12 hours) Temp Pulse Resp BP Pulse Ox 06/04/19 11:38 98.3 F 94 16 134/72 99 06/04/19 10:21 79 18 99 06/04/19 08:45 96 06/04/19 07:53 98.6 F 95 16 135/80 96 06/04/19 06:34 88 18 98 06/04/19 04:00 97.8 F 83 16 149/84 H 97 Weight Admit Weight 119 lb 14.4 oz Weight 110 lb 11.2 oz Most Recent Monitor Data Heart Rate from ECG 74 NIBP 136/75 NIBP BP-Mean 95 Respiration from ECG 20 SpO2 96 I&O: 06/03/19 06/04/19 06/05/19 06:59 06:59 06:59 Output Total 500 Balance -500 Result Diagrams: 06/04/19 05:23 06/04/19 05:23 Phys Exam - Physical Examination Constitutional: NAD HEENT: PERRLA, moist MMs, sclera anicteric Neck: no nodes, no JVD, supple Respiratory: no wheezing, no rales, no rhonchi Cardiovascular: RRR, no significant murmur, no rub Gastrointestinal: soft, non-tender, no distention, positive bowel sounds B/L LE BKA Dx/Plan (1) Acute CHF Code(s): I50.9 - HEART FAILURE, UNSPECIFIED Status: Acute Comment: Awaiting Echo report. (2) COPD exacerbation Code(s): J44.1 - CHRONIC OBSTRUCTIVE PULMONARY DISEASE W (ACUTE) EXACERBATION Status: Acute Comment: See above for mgmt (3) Toxic metabolic encephalopathy Code(s): G92 - TOXIC ENCEPHALOPATHY Status: Acute Comment: Secondary to #1, supportive mgmt, re-orientation techniques, improving (4) Peripheral vascular disease Code(s): I73.9 - PERIPHERAL VASCULAR DISEASE, UNSPECIFIED Status: Chronic Comment: Continue anti-platelet therapy - Plan * sx for today * cont current plan of care otherwise * pain control * case and plan d/w patient at length, he understood and agreed with this plan.
[2019-06-04] MEDS ORDERED: PHENYLEPHRINE-NS 100 MCG/ML 10 ML SYRINGE ONE (15:29)
[2019-06-04] MEDS ORDERED: Ondansetron PF 4 MG/2 ML Vial ONE (15:29)
[2019-06-04] MEDS ORDERED: PROPOFOL 200 MG/20 ML VIAL ONE (15:29)
[2019-06-04] MEDS ORDERED: Lidocaine 1% PF 5 ML VIAL ONE (15:29)
[2019-06-04] MEDS ORDERED: Morphine 4 MG/ML VIAL ONE (15:30)
[2019-06-04] MEDS ORDERED: Dexmedetomidine 200 MCG/2 ML VIAL ONE (15:38)
[2019-06-04] MEDS ORDERED: Famotidine/PF 20 mg/2ml Vial ONE (15:38)
[2019-06-04] MEDS ORDERED: Fentanyl 100 MCG/2 ML VIAL ONE (15:38)
[2019-06-04] MEDS ORDERED: Midazolam HCl 2 mg/2 ml Vial ONE (15:54)
[2019-06-04] MEDS ORDERED: Ondansetron HCl/PF 4 MG/2 ML Vial IVP PRN (16:37)
[2019-06-04] MEDS ORDERED: HYDROcodone/Acetaminophen 5/325 mg Tablet PO PRN (16:59)
[2019-06-04] MEDS ORDERED: Calcium Chloride 1 GM/10 ML Abboject SYRINGE ONE (17:25)
--- NOTE | 2019-06-04 17:53 | OP ---
DATE OF PROCEDURE: 06/04/2019 PREOPERATIVE DIAGNOSIS: Gangrene, right below-knee amputation stump. POSTOPERATIVE DIAGNOSES: Gangrene, right below-knee amputation stump. PROCEDURES PERFORMED: Right above-knee amputation. ANESTHESIA: General endotracheal. ESTIMATED BLOOD LOSS: Less than 100. DESCRIPTION OF PROCEDURE: After operative consent was obtained, the patient was brought to the operating room and placed in supine position on the operating room table. Appropriate central line was placed, and general endotracheal anesthesia was induced. The right leg was prepped and draped in usual sterile fashion. The skin was marked for above knee amputation in a fishmouth type incision. A skin incision was made. Dissection to the fascia was obtained with electrocautery. Anterior femur was exposed and circumferential exposure was then performed. Periosteum was elevated. Superficial femoral artery and popliteal vein were divided between clamps and tied. The femur was divided with a Gigli saw. Amputation was completed posteriorly with electrocautery. Wound was copiously irrigated. Fascia was reapproximated with 0 Vicryl in a [id number] fashion. Skin clips were applied and a fluff dressing was then placed. The patient tolerated the procedure well, was awakened, extubated, and transferred to the recovery room in stable condition. Job ID: [id number]
[2019-06-04] MEDS: Atorvastatin Calcium 20 MG TAB PO SCH (20:20)
[2019-06-05] MEDS: Piperacillin/Tazobactam 3.375 GM in Sodium Chloride 0.9% 100 ML IVPB SCH ×3 (00:24→11:45)
[2019-06-05] MEDS: Morphine 4 MG/ML VIAL SLOW IVP PRN ×4 (03:36→22:39)
[2019-06-05 05:37] LABS: Anion Gap 16 mmol/L (10-20); BUN (Urea Nitrogen) 8 mg/dL (8.4-25.7); Calc. Creatinine Clearance 72 mL/min (70-130); Calcium 8.4 mg/dL (7.8-10.44); Carbon Dioxide 20 mmol/L (23-31); Chloride 100 mmol/L (98-107); Estimated GFR-MDRD Greater than 90; Glucose 64 mg/dL (80-115); Potassium 3.6 mmol/L (3.5-5.1); Sodium 132 mmol/L (136-145)
[2019-06-05 06:29] LABS: Band 6 % (5-11); Eosinophils 1 % (0-10); Hemoglobin 8.9 g/dL (14.0-18.0); Lymphocytes 1 % (21-51); MDiff Complete? YES; Mean Corpuscular HGB CONC 30.7 g/dL (32.0-36.0); Mean Corpuscular Hemoglobin 22.7 pg (27.0-31.0); Mean Corpuscular Volume 73.7 fL (78.0-98.0); Mean Platelet Volume 7.6 fL (7.4-10.4); Monocytes 2 % (0-10); Neutrophil 90 % (42-75); Platelet Count 497 thou/uL (130-400); Red Blood Cell (RBC) Count 3.94 mill/uL (4.70-6.10); White Blood Cell (WBC) Count 28.9 thou/uL (4.8-10.8)
[2019-06-05] MEDS: Mometasone/Formoterol 120 PUFF INHALER INH SCH ×2 (07:07→19:23)
[2019-06-05] MEDS: guaiFENesin ER 600 MG TAB PO SCH ×2 (07:56→19:59)
[2019-06-05] MEDS: Aspirin Chewable 81 MG TAB PO SCH (07:57)
[2019-06-05] MEDS: Famotidine/PF 20 mg/2ml Vial SLOW IVP SCH ×2 (07:57→19:59)
[2019-06-05] MEDS: Clopidogrel Bisulfate 75 MG TAB PO SCH (07:57)
[2019-06-05] MEDS: Amiodarone 200 MG TAB PO SCH ×2 (07:57→19:59)
[2019-06-05] MEDS: Heparin 5,000 UNITS/ML VIAL SC SCH ×2 (07:57→19:59)
[2019-06-05] MEDS: predniSONE 20 MG TAB PO SCH (07:57)
[2019-06-05] MEDS ORDERED: Piperacillin/Tazobactam 3.375 GM in Sodium Chloride 0.9% 100 ML IVPB SCH (08:00)
--- NOTE | 2019-06-05 14:47 | PDOC.PN ---
- Subjective Encounter Start Date: 06/05/19 Encounter Start Time: 14:45 Patient seen and examined, no new issues. - Objective Resuscitation Status - Order Detail: 05/25/19 14:55 Resuscitation Status Routine Resuscitation Status: FULL: Full Resuscitation Discussed with: discussed w pt Vital Signs & Weight: Vital Signs (12 hours) Temp Pulse Resp BP Pulse Ox 06/05/19 14:38 73 16 100 06/05/19 11:42 97.6 F 95 16 121/64 94 L 06/05/19 10:20 79 18 97 06/05/19 07:55 94 L 06/05/19 07:24 99.0 F 84 18 134/75 94 L 06/05/19 07:10 93 L 06/05/19 07:09 82 16 93 L 06/05/19 07:07 82 16 93 L 06/05/19 04:00 98.4 F 83 16 123/69 92 L 06/05/19 03:42 84 16 94 L Weight Admit Weight 119 lb 14.4 oz Weight 110 lb 11.2 oz Most Recent Monitor Data Heart Rate from ECG 74 NIBP 136/75 NIBP BP-Mean 95 Respiration from ECG 20 SpO2 96 I&O: 06/04/19 06/05/19 06/06/19 06:59 06:59 06:59 Intake Total 760 Output Total 1400 Balance -640 Result Diagrams: 06/05/19 04:46 06/05/19 04:46 Phys Exam - Physical Examination Constitutional: NAD HEENT: PERRLA, moist MMs, sclera anicteric Neck: no nodes, no JVD, supple Respiratory: no wheezing, no rales, no rhonchi Cardiovascular: RRR, no significant murmur, no rub Gastrointestinal: soft, non-tender, no distention, positive bowel sounds +astrexis sx site C/D/I Dx/Plan (1) Acute CHF Code(s): I50.9 - HEART FAILURE, UNSPECIFIED Status: Acute Comment: Awaiting Echo report. (2) COPD exacerbation Code(s): J44.1 - CHRONIC OBSTRUCTIVE PULMONARY DISEASE W (ACUTE) EXACERBATION Status: Acute Comment: See above for mgmt (3) Toxic metabolic encephalopathy Code(s): G92 - TOXIC ENCEPHALOPATHY Status: Acute Comment: Secondary to #1, supportive mgmt, re-orientation techniques, improving (4) Peripheral vascular disease Code(s): I73.9 - PERIPHERAL VASCULAR DISEASE, UNSPECIFIED Status: Chronic Comment: Continue anti-platelet therapy - Plan * cont wound care * cont PT/OT * patient has asterexis, his Cr is 0.72 with B/L AKA's, this likely is indicative of sgnificant renal injury, will obtain a 12 hour CrCl for now to evaluate for renal function, will also consult nephrology as well given uremic symptoms (taste change + random jerking + nausea + loss of appetite) * no other changes in plan for now * case and plan d/w patient at length, he understood and agreed with this plan.
--- NOTE | 2019-06-05 16:30 | CON ---
DATE OF CONSULTATION: REASON FOR CONSULTATION: Proteinuria and decrease in calculated GFR. HISTORY OF PRESENT ILLNESS: This is a very pleasant 64-year-old gentleman, who presented to the hospital for a complex infection resulting in cellulitis. The patient has essential tremor and congestive heart failure. The patient's creatinine has ranged from 0.68 to 0.75. The patient is continent of urine, but has had hematuria and pyuria. The patient has no headache, numbness, tingling, or weakness. Denies any nausea, vomiting, or chest pain. PAST MEDICAL HISTORY: Significant for hypertension, anemia, CKD, leukocytosis, femoral-popliteal bypass, bilateral leg amputation, COPD, migraine, coronary artery disease, tobacco use. SOCIAL HISTORY: Positive for alcohol and tobacco. FAMILY HISTORY: Negative for ESRD. ALLERGIES: REVIEWED. MEDICATION: Home medication list reviewed. Hospital medication list reviewed. REVIEW OF SYSTEMS: A 15-point review of system was performed negative except for positives noted above. GENERAL: HEAD: NECK: No swelling or lumps. NOSE: No epistaxis or discharge. EYES: No diplopia or pain. RESPIRATORY: CARDIOVASCULAR: GASTROINTESTINAL: /WEIGHER AND CRUSHER: MUSCULOSKELETAL: No joint pain. NEUROPSYCHIATRIC SYSTEMS: No suicidal ideation. No ideation. SKIN: Denies any rash or ulcer. CONSTITUTIONAL: No fever or chills. PHYSICAL EXAMINATION: CONSTITUTIONAL: On exam, the patient is awake and alert. VITAL SIGNS: Afebrile, pulse 71, breathing 16, and blood pressure 121/64. GENERAL APPEARANCE AND MENTAL STATUS: Fair. HEAD/NECK: Normocephalic. Atraumatic. EYES: EOMI. No deformity. EARS: Clear. No ulcers. NOSE: Intact. No lesions. MOUTH: Clear. No discharge. THROAT: Clear. No exudate. LUNGS: Clear. No crackles. CARDIAC: S1, S2. No rub. ABDOMEN: Benign. Bowel sounds positive. GENITALIA/RECTUM: Francisco absent. BACK/EXTREMITIES: Edema 0+. NEUROLOGICAL: Alert and motor intact. SKIN: LYMPHATICS: LABORATORY DATA: Labs reviewed. ASSESSMENT AND PLAN: Chronic kidney disease stage 1, stable. Proteinuria, we will order serum and urine protein creatinine ratio to evaluate it. Anemia, stable. Infection, cellulitis. Management per primary team. Hematuria, we will order imaging and we will follow labs. No indication for dialysis at this time. Job ID: [id number]
[2019-06-05 16:46] LABS: Bacteria/HPF 1+ HPF (None Seen); Bilirubin Negative (Negative); Blood, Urine 2+ (Negative); Clarity Clear (Clear); Glucose, Urine (Dipstick) Normal (Negative); Leukocyte 500 Leu/uL (Negative); Nitrite Negative (Negative); Protein, Urine (Dipstick) 50 mg/dL (Neg-Trace); RBC/HPF Greater than 50 HPF (0-3); Urobilinogen Normal mg/dL (Less than 2); WBC/HPF 21-50 HPF (0-3); Yeast-Budding 1+ HPF (None Seen)
[2019-06-05] MEDS: Atorvastatin Calcium 20 MG TAB PO SCH (19:59)
[2019-06-05] MEDS: HYDROcodone/Acetaminophen 7.5/325 mg Tablet PO PRN (20:00)
[2019-06-05] MEDS: Cyclobenzaprine 10 MG TAB PO PRN (20:00)
--- NOTE | 2019-06-05 23:07 | ULT ---
Exam: Bilateral renal ultrasound HISTORY: Acute kidney insufficiency COMPARISON: None FINDINGS: Right kidney: Renal cortical thinning. No obvious masses. No hydronephrosis. Right kidney measurements: 5.2 x 11.2 x 5.0 cm. Left kidney: Renal cortical thinning. Mild hydronephrosis. There is evidence of a stent. Left kidney measurements 1.5 x 6.5 x 6.2 cm. Urinary bladder: Decompressed due to Francisco catheterization. IMPRESSION: Mild left-sided hydronephrosis. Transcribed Date/Time: 06/05/2019 11:10 PM
[2019-06-06] MEDS: Morphine 4 MG/ML VIAL SLOW IVP PRN ×3 (03:11→23:23)
[2019-06-06 04:38] LABS: 12 Hr Creatinine 386.35 mg/24 hr; Creatinine, Urine 46.83 mg/dL (63-166)
[2019-06-06 05:14] LABS: #Lymphocytes 0.6 thou/uL (1.20-3.40); #Monocytes 1.5 thou/uL (0.11-0.59); #Neutrophils 22.1 thou/uL (1.40-6.50); %Basophils 0.1 % (0.0-1.0); %Eosinophils 0.2 % (0.0-10.0); %Lymphocytes 2.6 % (21.0-51.0); %Monocytes 6.1 % (0.0-10.0); Hemoglobin 8.9 g/dL (14.0-18.0); Mean Corpuscular HGB CONC 30.1 g/dL (32.0-36.0); Mean Corpuscular Hemoglobin 22.4 pg (27.0-31.0); Mean Corpuscular Volume 74.4 fL (78.0-98.0); Mean Platelet Volume 7.5 fL (7.4-10.4); Platelet Count 394 thou/uL (130-400); RBC Distribution Width 20.7 % (11.5-14.5); Red Blood Cell (RBC) Count 3.97 mill/uL (4.70-6.10); White Blood Cell (WBC) Count 24.3 thou/uL (4.8-10.8)
[2019-06-06 05:17] LABS: Anion Gap 10 mmol/L (10-20); BUN (Urea Nitrogen) 7 mg/dL (8.4-25.7); Calc. Creatinine Clearance 98 mL/min (70-130); Calcium 7.9 mg/dL (7.8-10.44); Carbon Dioxide 23 mmol/L (23-31); Chloride 96 mmol/L (98-107); Estimated GFR-MDRD Greater than 90; Glucose 106 mg/dL (80-115); Potassium 3.1 mmol/L (3.5-5.1); Sodium 126 mmol/L (136-145)
[2019-06-06] MEDS: HYDROcodone/Acetaminophen 7.5/325 mg Tablet PO PRN (05:39)
[2019-06-06] MEDS: Mometasone/Formoterol 120 PUFF INHALER INH SCH ×2 (07:02→18:55)
[2019-06-06] MEDS: Famotidine/PF 20 mg/2ml Vial SLOW IVP SCH ×2 (08:22→20:22)
[2019-06-06] MEDS: predniSONE 20 MG TAB PO SCH (08:23)
[2019-06-06] MEDS: Aspirin Chewable 81 MG TAB PO SCH (08:23)
[2019-06-06] MEDS: Clopidogrel Bisulfate 75 MG TAB PO SCH (08:23)
[2019-06-06] MEDS: Amiodarone 200 MG TAB PO SCH ×2 (08:23→20:21)
[2019-06-06] MEDS: guaiFENesin ER 600 MG TAB PO SCH ×2 (08:23→20:22)
[2019-06-06] MEDS: Heparin 5,000 UNITS/ML VIAL SC SCH ×2 (08:24→20:22)
[2019-06-06] MEDS ORDERED: Furosemide 40 MG/4 ML VIAL SLOW IVP SCH (09:00)
[2019-06-06] MEDS: HYDROcodone/Acetaminophen 5/325 mg Tablet PO PRN ×3 (10:22→20:30)
--- NOTE | 2019-06-06 12:10 | PDOC.PN ---
- Subjective Encounter Start Date: 06/06/19 Encounter Start Time: 12:08 Patient seen and examined, no new issues. - Objective Resuscitation Status - Order Detail: 05/25/19 14:55 Resuscitation Status Routine Resuscitation Status: FULL: Full Resuscitation Discussed with: discussed w pt Vital Signs & Weight: Vital Signs (12 hours) Temp Pulse Resp BP Pulse Ox 06/06/19 10:33 66 16 99 06/06/19 07:07 100 06/06/19 07:06 72 16 100 06/06/19 07:02 70 16 100 06/06/19 04:00 97.7 F 75 18 134/76 98 Weight Admit Weight 119 lb 14.4 oz Weight 110 lb 11.2 oz Most Recent Monitor Data Heart Rate from ECG 74 NIBP 136/75 NIBP BP-Mean 95 Respiration from ECG 20 SpO2 96 I&O: 06/05/19 06/06/19 06/07/19 06:59 06:59 06:59 Intake Total 760 990 Output Total 1400 1400 Balance -640 -410 Result Diagrams: 06/06/19 04:40 06/06/19 04:40 Phys Exam - Physical Examination Constitutional: NAD HEENT: PERRLA, moist MMs, sclera anicteric Neck: no nodes, no JVD, supple Respiratory: no wheezing, no rales, no rhonchi Cardiovascular: RRR, no significant murmur, no rub Gastrointestinal: soft, non-tender, no distention, positive bowel sounds Musculoskeletal: pulses present RLE AKA, LLE BKA Dx/Plan (1) Acute CHF Code(s): I50.9 - HEART FAILURE, UNSPECIFIED Status: Acute Comment: Awaiting Echo report. (2) COPD exacerbation Code(s): J44.1 - CHRONIC OBSTRUCTIVE PULMONARY DISEASE W (ACUTE) EXACERBATION Status: Acute Comment: See above for mgmt (3) Toxic metabolic encephalopathy Code(s): G92 - TOXIC ENCEPHALOPATHY Status: Acute Comment: Secondary to #1, supportive mgmt, re-orientation techniques, improving (4) Peripheral vascular disease Code(s): I73.9 - PERIPHERAL VASCULAR DISEASE, UNSPECIFIED Status: Chronic Comment: Continue anti-platelet therapy - Plan * no asterixis today, Cr also came down from 0.72 to 0.5, showing a nice increase in eGFR * Na levels low today, will give lasix for now, repeat BMP in the evening and in AM, renal following * renal US shows cortical changes as well as mild left sided hydronephrosis * patient not ready for DC yet * further management per subspecialists * case and plan d/w patient at length, he understood and agreed with this plan
[2019-06-06] MEDS ORDERED: Potassium Chloride 20 MEQ TAB PO SCH (13:15)
--- NOTE | 2019-06-06 13:33 | PRG ---
DATE OF SERVICE: 06/06/2019 SUBJECTIVE: A 64-year-old male, being seen for acute kidney injury. The patient denies any nausea, vomiting, or chest pain. OBJECTIVE: CONSTITUTIONAL: The patient is awake and alert. VITAL SIGNS: Afebrile, pulse 75, breathing 16, and blood pressure 96/58. GENERAL APPEARANCE AND MENTAL STATUS: Fair. HEAD/NECK: Normocephalic. Atraumatic. EYES: EOMI. No deformity. EARS: Clear. No ulcers. NOSE: Intact. No lesions. MOUTH: Clear. No discharge. THROAT: Clear. No exudate. LUNGS: Clear. No crackles. CARDIAC: S1, S2. No rub. ABDOMEN: Benign. Bowel sounds positive. GENITALIA/RECTUM: Francisco absent. BACK/EXTREMITIES: Edema 0+. NEUROLOGICAL: Alert and motor intact. SKIN: LYMPHATICS: LABORATORY DATA: Labs reviewed. ASSESSMENT AND PLAN: 1. Acute kidney injury with chronic kidney disease with gross hematuria. We will consult Urology. 2. Proteinuria. Studies are still pending. 3. Left-sided hydronephrosis. Consult Urology. 4. Hyponatremia, most likely because of syndrome of inappropriate antidiuretic hormone secretion. We would recommend a fluid restriction and increase protein intake. 5. Medication based on GFR as appropriate. Job ID: [id number]
[2019-06-06 16:44] LABS: Sodium 129 mmol/L (136-145)
[2019-06-06] MEDS: Atorvastatin Calcium 20 MG TAB PO SCH (20:22)
[2019-06-06 21:02] LABS: Anion Gap 14 mmol/L (10-20); BUN (Urea Nitrogen) 9 mg/dL (8.4-25.7); Calc. Creatinine Clearance 87 mL/min (70-130); Calcium 8.4 mg/dL (7.8-10.44); Carbon Dioxide 27 mmol/L (23-31); Chloride 94 mmol/L (98-107); Estimated GFR-MDRD Greater than 90; Glucose 107 mg/dL (80-115); Potassium 3.8 mmol/L (3.5-5.1); Sodium 131 mmol/L (136-145)
[2019-06-07] MEDS: Morphine 4 MG/ML VIAL SLOW IVP PRN ×3 (03:21→20:10)
[2019-06-07 05:34] LABS: Anion Gap 7 mmol/L (10-20); BUN (Urea Nitrogen) 8 mg/dL (8.4-25.7); Calc. Creatinine Clearance 99 mL/min (70-130); Calcium 8.7 mg/dL (7.8-10.44); Carbon Dioxide 31 mmol/L (23-31); Chloride 94 mmol/L (98-107); Estimated GFR-MDRD Greater than 90; Glucose 96 mg/dL (80-115); Potassium 3.4 mmol/L (3.5-5.1); Sodium 129 mmol/L (136-145)
[2019-06-07 05:53] LABS: Anisocytosis SLIGHT = 6-15 cells (100X) (0-5/hpf); Band 4 % (5-11); Hemoglobin 8.8 g/dL (14.0-18.0); Hypochromia SLIGHT = 6-15 cells (100X) (0-5/hpf); Lymphocytes 5 % (21-51); MDiff Complete? YES; Mean Corpuscular Hemoglobin 22.7 pg (27.0-31.0); Mean Corpuscular Volume 73.1 fL (78.0-98.0); Mean Platelet Volume 8.2 fL (7.4-10.4); Microcytosis SLIGHT = 6-15 cells (100X) (0-5/hpf); Monocytes 4 % (0-10); Neutrophil 87 % (42-75); Platelet Count 400 thou/uL (130-400); Platelet Morphology Comment Appears Adequate; RBC Distribution Width 20.8 % (11.5-14.5); Red Blood Cell (RBC) Count 3.87 mill/uL (4.70-6.10); Target Cells SLIGHT = 2-5 cells (100X) (0-1/hpf); White Blood Cell (WBC) Count 24.4 thou/uL (4.8-10.8)
[2019-06-07] MEDS: HYDROcodone/Acetaminophen 7.5/325 mg Tablet PO PRN ×3 (06:12→17:21)
[2019-06-07] MEDS: Mometasone/Formoterol 120 PUFF INHALER INH SCH ×2 (06:49→19:00)
[2019-06-07] MEDS: Amiodarone 200 MG TAB PO SCH ×2 (08:25→20:01)
[2019-06-07] MEDS: guaiFENesin ER 600 MG TAB PO SCH ×2 (08:25→20:02)
[2019-06-07] MEDS: Clopidogrel Bisulfate 75 MG TAB PO SCH (08:25)
[2019-06-07] MEDS: Famotidine/PF 20 mg/2ml Vial SLOW IVP SCH ×2 (08:26→20:01)
[2019-06-07] MEDS: Aspirin Chewable 81 MG TAB PO SCH (08:26)
[2019-06-07] MEDS: predniSONE 20 MG TAB PO SCH (08:26)
[2019-06-07] MEDS: Cyclobenzaprine 10 MG TAB PO PRN ×2 (08:30→17:23)
[2019-06-07] MEDS: Heparin 5,000 UNITS/ML VIAL SC SCH ×2 (08:31→20:02)
--- NOTE | 2019-06-07 11:03 | CON ---
DATE OF CONSULTATION: 06/07/2019 REASON FOR CONSULTATION: Left hydronephrosis. REQUESTING PHYSICIAN: Hospitalist Service. HISTORY OF PRESENT ILLNESS: Mr. Romeo is a 64-year-old male with multiple acute and chronic medical problems. He presented to the hospital for a severe right lower extremity infection and cellulitis. He has history of left BKA. The patient during this hospitalization underwent a right AKA by Dr. Polanco. The patient previously had undergone a right BKA at [facility] on May 21. However, this failed and amputation was gangrenous and therefore, was converted to a BKA. The patient has a history of a left chronic ureteropelvic junction obstruction. He previously was a patient of Dr. Casimiro Lainez. This was managed with indwelling stent with scheduled stent exchanges every 6 to 12 months. The patient has not followed up since mid 2016. Upon review of the record at [facility], it appears his last stent exchange was January 2017. Incidentally on imaging performed here, it was noted that he had some left hydronephrosis and there appeared to be a stent in place. Urology was consulted for further evaluation. The patient reports intermittent left-sided flank pain, which is chronic. He has had some intermittent gross hematuria throughout the entire time. He has had his indwelling stent. Otherwise, he has no complaints. PAST MEDICAL HISTORY: Hypertension, anemia of chronic kidney disease, peripheral vascular disease, COPD, and coronary artery disease. PAST SURGICAL HISTORY: Left BKA, right BKA converted to AKA, femoral-popliteal bypass, multiple left ureteral stent placements and exchanges. FAMILY HISTORY: Noncontributory. SOCIAL HISTORY: Positive for alcohol and tobacco. ALLERGIES: ADHESIVE. MEDICATIONS: These were reviewed. There are no changes. REVIEW OF SYSTEMS: Full 12-point review of systems was performed and is negative other than that mentioned in HPI. PHYSICAL EXAMINATION: VITAL SIGNS: Temperature 98.2, pulse 73, respirations 18, oxygen saturation 97% on room air, and blood pressure 122/74. GENERAL: He is awake and alert, in no apparent distress. HEENT: Normocephalic and atraumatic. NECK: Supple. No masses or lymphadenopathy. CARDIOVASCULAR: Regular rate and rhythm. PULMONARY: Breathing unlabored. No wheezing. ABDOMEN: Soft, nontender/nondistended. No masses or organomegaly. No suprapubic tenderness to palpation. No CVA tenderness. GENITOURINARY: Normal penis without concerning lesion. Francisco catheter is in place. Draining jose urine. EXTREMITIES: Left AKA. Right fresh BKA with surgical dressings in place. NEUROLOGIC: No focal deficits. LABORATORY DATA: White blood cell count 24.4, hemoglobin 8.8, hematocrit 28.3, platelets 400. Sodium 129, potassium 3.4, chloride 94, bicarb 31, BUN 8, creatinine 0.54. Urine on 06/05/2019 demonstrated 2+ blood, greater than 50 red blood cells, and 21 to 50 white blood cells per high-power field, 1+ bacteria. A voided urine culture on 05/25/2019 demonstrated no growth. There is no other recent culture present. RADIOLOGY DATA: Renal ultrasound demonstrates mild left-sided hydronephrosis. A CT of the pelvis from 06/03/2019 demonstrates a left ureteral stent in what appears to be adequate position; although, the upper part of the kidney is not visualized. ASSESSMENT: A 64-year-old male with multiple acute and chronic medical problems with chronic left ureteropelvic junction obstruction, managed with an indwelling left ureteral stent, now with a retained stent since January 2017. PLAN: I reviewed chronic UPJ obstruction with the patient in detail. He was not a candidate for a more aggressive approach to definitive management of this and therefore in 2014, had the first left ureteral stent placed and this was changed every 6 [address] Lainez. He has not followed up since January 2017. I explained the risk of calcification of the stent on the CT scan. It does not appear that there is significant calcification, although this is unclear. The amount of hydronephrosis is expected given indwelling left ureteral stent. At some point, the patient will require this to be exchanged down and we could consider changing him over to a metallic long-term ureteral stent to avoid calcification and these only have to be changed every 12 to 18 months. This would not be required urgently. However, the patient can follow up as an outpatient to have this scheduled once he heals from his recent BKA. His primary concern currently is pain associated with this, which he would like to control better prior to having any other procedure done. Unless his clinical situation changes, the patient can follow up with Urology as an outpatient for exchange of the stent. Thank you for allowing me to participate in the care of this patient. Job ID: [id number]
--- NOTE | 2019-06-07 12:26 | PRG ---
DATE OF SERVICE: 06/07/2019 SUBJECTIVE: A 64-year-old male being seen for acute kidney injury. The patient denied nausea, vomiting, or chest pain. OBJECTIVE: CONSTITUTIONAL: The patient is awake and alert. VITAL SIGNS: Afebrile, pulse 60, breathing 16, and blood pressure 122/74. See above. Awake, alert, in no acute distress. GENERAL APPEARANCE AND MENTAL STATUS: Fair. HEAD/NECK: Normocephalic. Atraumatic. EYES: EOMI. No deformity. EARS: Clear. No ulcers. NOSE: Intact. No lesions. MOUTH: Clear. No discharge. THROAT: Clear. No exudate. LUNGS: Clear. No crackles. CARDIAC: S1, S2. No rub. ABDOMEN: Benign. Bowel sounds positive. GENITALIA/RECTUM: Francisco absent. BACK/EXTREMITIES: Edema 0+. NEUROLOGICAL: Alert and motor intact. SKIN: LYMPHATICS: LABORATORY DATA: Reviewed. ASSESSMENT AND PLAN: 1. Acute kidney injury, stable. 2. Hypertensive anemia, stable. 3. Hydronephrosis. Urology consult appreciated. I will sign off on this patient. Please reconsult as needed. Job ID: [id number]
--- NOTE | 2019-06-07 16:23 | PRG ---
DATE OF SERVICE: 06/07/2019 SUBJECTIVE: The patient is seen and examined at the bedside. He complains about shooting pain in his right lower extremity, which comes and goes, which is quite typical for amputation. OBJECTIVE: VITAL SIGNS: Blood pressure is 102/65, pulse is 70, temperature is 98.5, respiratory rate is 18, and O2 saturation is 91%. HEENT: His pupils are responding to light properly. Sclerae are nonicteric. Conjunctivae palish. Oral mucosa is moist. NECK: Supple. LUNGS: Clear. HEART: S1 and S2 normal. No S3. No S4. ABDOMEN: Soft and nontender. EXTREMITIES: Right lower extremity avgbg-bdz-vjnm amputation, status post revision. NEUROLOGIC: He follows my commands. He moves his all 4 extremities. LABORATORY DATA: His white count is still 24.4, hemoglobin 8.8, hematocrit 28.3, platelet count is 400. Sodium of 129, potassium 3.4, chloride 94, CO2 of 31, BUN 8, creatinine 0.54, glucose 96, and calcium is 8.7. IMPRESSION: 1. Gangrene of the stump of the right autfg-cub-mbry amputation site, status post revision by Dr. Polanco. 2. Bilateral pneumonia, status post treatment with vancomycin, Zosyn, and steroids. 3. Acute congestive heart failure. 4. Acute respiratory failure with hypoxia. 5. Chronic obstructive pulmonary disease exacerbation. 6. Neutrophilic leukocytosis. 7. Toxic metabolic encephalopathy, improved. 8. Peripheral vascular disease. 9. Hypomagnesemia. 10. Sepsis at time of admission. DISCUSSION: The patient has a lot of shooting pains in his both lower extremities, which is quite typical for somebody who had bilateral dgolo-fuu-kouy amputations. He is on hydrocodone and still in a lot of pain, which comes and goes. I am going to add Lyrica 300 mg at bedtime, and we will continue his prednisone and DuoNeb, anti-platelet agents with Plavix and aspirin, amiodarone and verapamil. Job ID: [id number]
--- NOTE | 2019-06-07 17:28 | PRG ---
DATE OF SERVICE: 06/07/2019 HISTORY OF PRESENT ILLNESS: Mr. Romeo had a right AKA revision. He is complaining of severe pain, pretty much all the time. He developed intertriginous eruption and has a Francisco catheter inserted. He has a stage II in the back area. No vomiting. OBJECTIVE: VITAL SIGNS: He has been afebrile for the past few days. blood pressure 102/65, pulse 70, O2 saturation 91 to 95. SKIN: Dry. HEENT: Ocular movements conjugate. LUNGS: Clear to auscultation and percussion. HEART: S1 and S2, regular rate. ABDOMEN: Soft. EXTREMITIES: Right AK amputation is a little bit darker color at the edges of the AKA stump, but appears viable at this time. There are a few linear lyn from the device that was used for the amputation. He has a quite a bit of maceration of the skin around the groin and the scrotum has a Francisco catheter in place, stage II decubitus. LABORATORY DATA: White cell count is 24.4, hemoglobin 8.8, platelets 400, 87% neutrophils, and 4% bands. Sodium 129, creatinine 0.54. Blood cultures, no growth in [address] Reynoso of Urology at [facility] has evaluated the patient and has recommended exchange of the stent, eventually for metal stent in the right side in the site where there is mild hydronephrosis, but he does not believe that this needs to be done immediately. ASSESSMENT AND DISCUSSION: Peripheral vascular disease; bilateral below-knee amputations, now revised on the right side to above-knee amputation, chronic smoking, chronic obstructive pulmonary disease, bilateral infiltrates which have improved, ischemic cardiomyopathy, and ureterovesical junction stenosis which required stent placement in the past and this stent has not been replaced for the past many months and Dr. Reynoso has recommended replacement by a metal stent since he is not eligible for repair of the UVJ stenosis. The main issue here is pain management, may consider CABIN CREW analgesia for the time being. Should be able to discontinue antimicrobial therapy shortly, we will start Diflucan orally for the intertriginous eruption, which is likely due to Delilah. Job ID: [id number]
[2019-06-07] MEDS: Triple Antibiotic Oint 1 GM Packet TOP SCH (17:38)
[2019-06-07] MEDS: Atorvastatin Calcium 20 MG TAB PO SCH (20:01)
[2019-06-07] MEDS: Gabapentin 300 MG CAP PO SCH (20:02)
[2019-06-08] MEDS: HYDROcodone/Acetaminophen 7.5/325 mg Tablet PO PRN ×3 (05:27→20:24)
[2019-06-08 06:48] LABS: #Eosinphils 0.1 thou/uL (0.0-0.7); #Lymphocytes 1.1 thou/uL (1.20-3.40); #Monocytes 1.6 thou/uL (0.11-0.59); #Neutrophils 22.8 thou/uL (1.40-6.50); %Eosinophils 0.3 % (0.0-10.0); %Lymphocytes 4.2 % (21.0-51.0); %Monocytes 6.1 % (0.0-10.0); %Neutrophils 89.4 % (42.0-75.0); Hemoglobin 9.2 g/dL (14.0-18.0); Mean Corpuscular Hemoglobin 22.9 pg (27.0-31.0); Mean Corpuscular Volume 73.9 fL (78.0-98.0); Platelet Count 496 thou/uL (130-400); RBC Distribution Width 21.2 % (11.5-14.5); Red Blood Cell (RBC) Count 4.02 mill/uL (4.70-6.10); White Blood Cell (WBC) Count 25.5 thou/uL (4.8-10.8)
[2019-06-08] MEDS: Mometasone/Formoterol 120 PUFF INHALER INH SCH ×2 (06:52→21:22)
[2019-06-08 07:14] LABS: Anion Gap 11 mmol/L (10-20); BUN (Urea Nitrogen) 13 mg/dL (8.4-25.7); Calc. Creatinine Clearance 87 mL/min (70-130); Carbon Dioxide 30 mmol/L (23-31); Chloride 93 mmol/L (98-107); Estimated GFR-MDRD Greater than 90; Glucose 94 mg/dL (80-115); Potassium 3.8 mmol/L (3.5-5.1); Sodium 130 mmol/L (136-145)
[2019-06-08] MEDS: Heparin 5,000 UNITS/ML VIAL SC SCH ×2 (08:31→20:20)
[2019-06-08] MEDS: predniSONE 20 MG TAB PO SCH (08:32)
[2019-06-08] MEDS: Fluconazole 100 MG TAB PO SCH (08:32)
[2019-06-08] MEDS: guaiFENesin ER 600 MG TAB PO SCH ×2 (08:32→20:20)
[2019-06-08] MEDS: Amiodarone 200 MG TAB PO SCH ×2 (08:32→20:20)
[2019-06-08] MEDS: Clopidogrel Bisulfate 75 MG TAB PO SCH (08:32)
[2019-06-08] MEDS: Gabapentin 300 MG CAP PO SCH ×2 (08:32→20:19)
[2019-06-08] MEDS: Aspirin Chewable 81 MG TAB PO SCH (08:32)
[2019-06-08] MEDS: Famotidine/PF 20 mg/2ml Vial SLOW IVP SCH ×2 (08:33→20:19)
[2019-06-08] MEDS: Triple Antibiotic Oint 1 GM Packet TOP SCH ×2 (08:33→20:20)
[2019-06-08] MEDS: Morphine 4 MG/ML VIAL SLOW IVP PRN (08:54)
--- NOTE | 2019-06-08 15:38 | PRG ---
DATE OF SERVICE: 06/08/2019 SUBJECTIVE: He noticed that he is very sleepy, he sleeps all the time. The pain is improved to some extent. Appetite is so-so. OBJECTIVE: VITAL SIGNS: Blood pressure is 117/74, pulse is 71, temperature is 97.5, respirations 12, and O2 saturation 98% on 3 L by nasal cannula. HEENT: His head is atraumatic and normocephalic. Sclerae are nonicteric. Oral mucosa is moist. NECK: Supple. LUNGS: Breath sounds diminished at both bases. HEART: S1 and S2 normal. No S3. No S4. ABDOMEN: Soft and nontender. Bowel sounds are present. EXTREMITIES: Right acmsz-eom-ytty amputation status. The stump looks good. The left stump looks healed from the previous operations in the past. NEUROLOGICAL: He follows my commands. He moves his all 4 extremities. He looks somewhat drowsy. LABORATORY DATA: Labs showed a white count of 25.5, hemoglobin of 9.2, hematocrit 29.7, and platelet count 496,000. Sodium 130, potassium 3.8, chloride 93, CO2 of 30, BUN 13, and creatinine 0.62. Microbiology, nothing new. IMPRESSION: 1. Gangrene of the stump of the right pxshh-dau-kfjb amputation site, status post revision by Dr. Polanco. 2. Bilateral pneumonia, status post treatment with vancomycin, Zosyn and steroids. 3. Acute congestive heart failure, improved. 4. Acute respiratory failure with hypoxia, improved. 5. Chronic obstructive pulmonary disease exacerbation, improved. 6. Neutrophilic leukocytosis. 7. Toxic metabolic encephalopathy, improved. 8. Peripheral vascular disease. 9. Hypomagnesemia. 10. Sepsis at the time of admission. 11. Left hydronephrosis. 12. Status of stent in place in the ureter on the left side, which was changed every 6 to 12 months in the past. Apparently, the patient did not follow since January 2017. PLAN: The plan is to replace this stent with the metal stent, which is not going to get calcified, but that is in the future, this kind of stent will have to be changed only every 12 to 18 months. We will need to have followup with Urology after he is out of the rehab. I am planning to do CBC tomorrow morning and discuss the case with Dr. Montero regarding possible scanning of his chest and abdomen to look for some explanation of his elevated white count, which stays continuously above 20,000 level. Job ID: [id number]
[2019-06-08] MEDS: Atorvastatin Calcium 20 MG TAB PO SCH (20:19)
[2019-06-09] MEDS: HYDROcodone/Acetaminophen 7.5/325 mg Tablet PO PRN ×4 (02:39→20:19)
[2019-06-09] MEDS: Mometasone/Formoterol 120 PUFF INHALER INH SCH ×2 (06:15→19:53)
[2019-06-09 06:44] LABS: #Eosinphils 0.1 thou/uL (0.0-0.7); #Lymphocytes 1.1 thou/uL (1.20-3.40); #Monocytes 1.7 thou/uL (0.11-0.59); #Neutrophils 17.8 thou/uL (1.40-6.50); %Basophils 0.1 % (0.0-1.0); %Eosinophils 0.3 % (0.0-10.0); %Lymphocytes 5.4 % (21.0-51.0); %Neutrophils 86.3 % (42.0-75.0); Hemoglobin 8.8 g/dL (14.0-18.0); Mean Corpuscular HGB CONC 30.7 g/dL (32.0-36.0); Mean Corpuscular Hemoglobin 22.9 pg (27.0-31.0); Mean Corpuscular Volume 74.6 fL (78.0-98.0); Mean Platelet Volume 8.1 fL (7.4-10.4); Platelet Count 426 thou/uL (130-400); RBC Distribution Width 21.2 % (11.5-14.5); Red Blood Cell (RBC) Count 3.83 mill/uL (4.70-6.10); White Blood Cell (WBC) Count 20.7 thou/uL (4.8-10.8)
[2019-06-09 07:00] LABS: Anion Gap 12 mmol/L (10-20); BUN (Urea Nitrogen) 9 mg/dL (8.4-25.7); Calc. Creatinine Clearance 91 mL/min (70-130); Calcium 8.7 mg/dL (7.8-10.44); Carbon Dioxide 25 mmol/L (23-31); Chloride 95 mmol/L (98-107); Estimated GFR-MDRD Greater than 90; Glucose 88 mg/dL (80-115); Potassium 4.3 mmol/L (3.5-5.1); Sodium 128 mmol/L (136-145)
[2019-06-09] MEDS: Fluconazole 100 MG TAB PO SCH (08:41)
[2019-06-09] MEDS: Triple Antibiotic Oint 1 GM Packet TOP SCH ×2 (08:41→20:20)
[2019-06-09] MEDS: Clopidogrel Bisulfate 75 MG TAB PO SCH (08:41)
[2019-06-09] MEDS: predniSONE 5 MG TAB PO SCH (08:41)
[2019-06-09] MEDS: guaiFENesin ER 600 MG TAB PO SCH ×2 (08:41→20:19)
[2019-06-09] MEDS: Amiodarone 200 MG TAB PO SCH ×2 (08:41→20:20)
[2019-06-09] MEDS: Famotidine/PF 20 mg/2ml Vial SLOW IVP SCH ×2 (08:42→20:20)
[2019-06-09] MEDS: Aspirin Chewable 81 MG TAB PO SCH (08:42)
[2019-06-09] MEDS: Heparin 5,000 UNITS/ML VIAL SC SCH ×2 (08:42→20:20)
[2019-06-09] MEDS: Cyclobenzaprine 10 MG TAB PO PRN (14:38)
--- NOTE | 2019-06-09 16:16 | PRG ---
DATE OF SERVICE: 06/09/2019 SUBJECTIVE: The patient was seen and examined at bedside. He is complaining a lot about those shooting pains in his both lower extremities. He had relatively good night. He was able to rest. His appetite is fair. OBJECTIVE: VITAL SIGNS: Blood pressure is 103/64, pulse is 76, temperature is 99.3, respirations 16, and O2 saturation is 98% on 2 L by nasal cannula. HEENT: His pupils are responding to light properly. Sclerae are nonicteric. Conjunctivae palish. Oral mucosa is moist. NECK: Supple. LUNGS: Clear. HEART: S1, S2 normal. No S3. No S4. ABDOMEN: Soft, nontender. His stump looks good. NEUROLOGICAL: He follows my commands. He moves his all 4 extremities. There are no any motor deficits. LABORATORY DATA: Labs showed white count of 20.7, hemoglobin of 8.8, hematocrit 28.6, and platelet count 426,000. Sodium of 128, potassium 4.3, chloride 95, CO2 of 25, BUN 9, creatinine 0.59, calcium 8.7, and glucose 88. IMPRESSION: 1. Status post revision of his stump of the right lower extremity htpda-zsx-faiy amputation site, which was gangrenous at this point. Clinically, it looks good. 2. Bilateral pneumoniae, status post treatment with vancomycin, Zosyn, and steroids. 3. Acute congestive heart failure, improved. 4. Acute respiratory failure with hypoxemia, improved. 5. Chronic obstructive pulmonary disease exacerbation, improved. 6. Neutrophilic leukocytosis, improved. 7. Toxic metabolic encephalopathy, improved. 8. Peripheral vascular disease. 9. Hypomagnesemia. 10. Sepsis at the time of admission, resolved. 11. Left hydronephrosis, mild with stent in place in the ureter on the left side, which will be changed to the metal stent by urologist. PLAN: The patient's white count is trending down. It is down to 20,000 today. If it is further down tomorrow, we will talk to the rehab MD, and he will be transferred to rehabilitation soon after that. Job ID: [id number]
[2019-06-09] MEDS: Gabapentin 300 MG CAP PO SCH (20:20)
[2019-06-09] MEDS: Atorvastatin Calcium 20 MG TAB PO SCH (20:20)
[2019-06-09] MEDS: Morphine 4 MG/ML VIAL SLOW IVP PRN (22:01)
[2019-06-10 06:50] LABS: #Eosinphils 0.1 thou/uL (0.0-0.7); #Monocytes 1.3 thou/uL (0.11-0.59); #Neutrophils 15.7 thou/uL (1.40-6.50); %Basophils 0.1 % (0.0-1.0); %Eosinophils 0.8 % (0.0-10.0); %Lymphocytes 5.4 % (21.0-51.0); %Monocytes 7.3 % (0.0-10.0); %Neutrophils 86.5 % (42.0-75.0); Hemoglobin 9.1 g/dL (14.0-18.0); Mean Corpuscular HGB CONC 29.7 g/dL (32.0-36.0); Mean Corpuscular Hemoglobin 22.1 pg (27.0-31.0); Mean Corpuscular Volume 74.2 fL (78.0-98.0); Mean Platelet Volume 8.1 fL (7.4-10.4); Platelet Count 461 thou/uL (130-400); RBC Distribution Width 21.2 % (11.5-14.5); Red Blood Cell (RBC) Count 4.14 mill/uL (4.70-6.10); White Blood Cell (WBC) Count 18.1 thou/uL (4.8-10.8)
[2019-06-10 06:56] LABS: Anion Gap 12 mmol/L (10-20); BUN (Urea Nitrogen) 8 mg/dL (8.4-25.7); Calc. Creatinine Clearance 90 mL/min (70-130); Calcium 8.6 mg/dL (7.8-10.44); Carbon Dioxide 24 mmol/L (23-31); Chloride 96 mmol/L (98-107); Estimated GFR-MDRD Greater than 90; Glucose 85 mg/dL (80-115); Potassium 4.7 mmol/L (3.5-5.1); Sodium 127 mmol/L (136-145)
[2019-06-10] MEDS: Mometasone/Formoterol 120 PUFF INHALER INH SCH (07:06)
[2019-06-10 07:38] LABS: Hypersemented Neutrophil MODERATE; Hypochromia SLIGHT = 6-15 cells (100X) (0-5/hpf); MDiff Complete? YES; Microcytosis SLIGHT = 6-15 cells (100X) (0-5/hpf); Platelet Morphology Comment Appears Increased; Polychromasia SLIGHT = 2-3 cells (100X) (0-2/hpf); Reflex for Review?? YES
[2019-06-10] MEDS: Triple Antibiotic Oint 1 GM Packet TOP SCH (09:05)
[2019-06-10] MEDS: predniSONE 5 MG TAB PO SCH (09:05)
[2019-06-10] MEDS: Fluconazole 100 MG TAB PO SCH (09:05)
[2019-06-10] MEDS: Clopidogrel Bisulfate 75 MG TAB PO SCH (09:05)
[2019-06-10] MEDS: Famotidine/PF 20 mg/2ml Vial SLOW IVP SCH (09:05)
[2019-06-10] MEDS: guaiFENesin ER 600 MG TAB PO SCH (09:05)
[2019-06-10] MEDS: Aspirin Chewable 81 MG TAB PO SCH (09:05)
[2019-06-10] MEDS: Amiodarone 200 MG TAB PO SCH (09:05)
[2019-06-10] MEDS: Heparin 5,000 UNITS/ML VIAL SC SCH (09:20)
--- NOTE | 2019-06-10 11:43 | PRG ---
DATE OF SERVICE: 06/10/2019 SUBJECTIVE: The patient is seen and examined at the bedside. He seems to be doing somewhat better. His pain is still present, but is subsiding. His appetite is fair. OBJECTIVE: VITAL SIGNS: Blood pressure is 121/75, pulse is 80, respirations 16, O2 saturation is 99% on 2 L by nasal cannula, temperature is 97.2. HEENT: His eyes are PERRLA. Sclerae are nonicteric. Conjunctivae are pinkish. Oral mucosa is moist. NECK: Supple. LUNGS: Breath sounds diminished at both bases. HEART: S1 and S2, normal. No S3. No S4. ABDOMEN: Soft, nontender. Bowel sounds are present. EXTREMITIES: Right uajll-gzb-kffw amputee status, stump looks good. The left side below the knee amputee status, healed remotely. IMPRESSION: 1. Status post revision of his right stump above the knee amputation site, which was gangrenous. 2. Bilateral pneumonia, status post completion of treatment with vancomycin, Zosyn, and steroids. 3. Acute congestive heart failure, resolved. 4. Acute respiratory failure with hypoxemia, improved. 5. Chronic obstructive pulmonary disease exacerbation, improved. 6. Neutrophilic leukocytosis, improving. 7. Toxic metabolic encephalopathy, improved. 8. Peripheral vascular disease. 9. Hypomagnesemia, corrected. 10. Sepsis at the time of admission, resolved. 11. Left hydronephrosis with stent in place in the ureter on the left side and the plan to exchange this stent in the future for metal stent by urologist, which is going to be changed every 12 to 18 months. Also, I am going to call Dr. Nava, who is the rehab doctor about him, and we will send him there after he is approved, and to continue his PT and OT and wound care. Job ID: [id number]
[2019-06-10] MEDS: HYDROcodone/Acetaminophen 7.5/325 mg Tablet PO PRN (12:50)
[2019-06-10 16:25] VITALS: BP 117/76; TEMP 97.4
--- NOTE | 2019-06-10 18:13 | DIS ---
DATE OF ADMISSION: 05/25/2019 DATE OF DISCHARGE: 06/10/2019 DIAGNOSES AT THE TIME OF DISCHARGE: 1. Status post revision of the right stump vvidy-ipq-qgpd amputation site, which was gangrenous. 2. Bilateral pneumonia, status post completion of treatment with vancomycin, Zosyn, and steroids. 3. Acute congestive heart failure, resolved. 4. Acute respiratory failure with hypoxemia, improved. 5. Chronic obstructive pulmonary disease exacerbation, improved. 6. Neutrophilic leukocytosis, improving. 7. Toxic metabolic encephalopathy, improved. 8. Peripheral vascular disease. 9. Hypomagnesemia, corrected. 10. Sepsis at the time of admission, resolved. 11. Left hydronephrosis with stent in place in the ureter on the left side and plan to exchange it for metal stent by urologist in the future. CONSULTANTS: 1. Dr. Perez, Pulmonary/Critical Care. 2. Dr. Tom Montero, Infectious Disease. 3. Dr. Polanco, Cardiovascular Surgery. 4. Dr. Joselito Espinal, Nephrology Service. PROCEDURE: Right lbxul-cxq-npju amputation done on 06/04/2019. HOSPITAL COURSE: The patient is a 64-year-old male, who was transferred from the rehab by Dr. Ruelas after he noticed that the patient's breathing was getting worse. He had leukocytosis and previous pneumonia. Apparently, he was at [facility], where he had bilateral vrcis-piq-zvmq amputations done and then he developed pneumonia. He was treated for Pseudomonas causing pneumonia and he was transferred subsequently to the rehab. At the time of evaluation in the emergency room, he was placed on BiPAP. The CT of the chest was done, which showed multifocal pneumonia and pleural effusion. His white count was 15.6 on the 19 of May and 25 at the time of admission, which was on the 25 of May. He developed thrombocytosis with platelet count around 900. His potassium was up to 5.6. He was weaned off his BiPAP and admitted to [facility] to continue his hospitalization. He was on IV Lasix since his BNP was elevated more than 1000. He was given Solu-Medrol nebulizers with DuoNeb for COPD possible exacerbation and echocardiogram was done. The patient was seen by Dr. Perez for Pulmonary consultation, who recommended continuation of IV antibiotics, continuation of steroids and DuoNeb. He was on Zosyn, vancomycin, and Maxipime. His white count gradually decreased to 15,000. Two blood cultures came back negative and one urine culture came back negative. Followup chest x-ray showed improvement of bilateral infiltrates, but at some point, his white count started going up again and it reached a level of 35,000. The patient was seen by Dr. Polanco for cardiovascular evaluation of his right lower extremity stump, which was found to be gangrenous and he performed above the knee amputation and the patient gradually improved. His white count is gradually coming down from 25,000 down to 18 today. Clinically, he is doing good. His appetite is fair. His vitals; blood pressure is 112/70, pulse is 85, respirations 20, and O2 saturation is 97% on 2 L by nasal cannula, and his temperature is 98.3. His stump looks good. Addis are still in place. He is going back to the rehab. MEDICATIONS AT THE TIME OF DISCHARGE: 1. Gabapentin 300 mg at bedtime. 2. Hydrocodone 7.5 mg 1 tablet every 4 hours p.r.n. as needed. 3. DuoNeb q.4 hours while awake. 4. Nystatin powder topical twice a day to the left groin. 5. Verapamil 120 mg once a day. 6. Prednisone 10 mg for additional 5 days. 7. Amiodarone 200 mg once a day. 8. Clopidogrel 75 mg once a day. 9. Aspirin 81 mg once a day. 10. Atorvastatin at bedtime. 11. Symbicort 2 puffs twice a day. 12. Vitamin D3 two tablets once a day. 13. Tylenol q.4 hours p.r.n. as needed. 14. Maalox 30 mL p.o. p.r.n. 15. Calcium carbonate 1000 mg q.6 hours. 16. Antacid p.r.n. 17. Mylicon 80 mg 3 times a day. DISCHARGE INSTRUCTIONS: He is going to continue his amiodarone once a day. He will continue his PT and OT and will follow up with Dr. Polanco in 2 weeks and with primary care physician after his discharge from the rehab. DISCHARGE TIME: More than 30 minutes. Job ID: [id number]
== END 2019-06-10 16:12 | DRG 853 ==
LOC: ERS 10:11 → ERHOLD 13:10 → IMCU/EMU 20:00 → T4-B 05-31 18:07
PROVIDERS: ADMIT Internal Medicine; ATTEND Internal Medicine
PROC: 5A09457 Assistance with Respiratory Ventilation, 24-96 Consecutive Hours, Continuous Positive Airway Pressure (ICD-10-PCS; 2019-05-25)
PROC: 0Y6C0Z3 Detachment at Right Upper Leg, Low, Open Approach (ICD-10-PCS; principal; 2019-06-04)
DX: A41.9 Sepsis, unspecified organism (principal); J96.01 Acute respiratory failure with hypoxia; G92 Toxic encephalopathy; J15.9 Unspecified bacterial pneumonia; J44.0 Chronic obstructive pulmonary disease with (acute) lower respiratory infection; J44.1 Chronic obstructive pulmonary disease with (acute) exacerbation; E44.0 Moderate protein-calorie malnutrition; I13.0 Hypertensive heart and chronic kidney disease with heart failure and stage 1 through stage 4 chronic kidney disease, or unspecified chronic kidney disease; N13.30 Unspecified hydronephrosis; N17.9 Acute kidney failure, unspecified; E87.1 Hypo-osmolality and hyponatremia; Z68.1 Body mass index [BMI] 19.9 or less, adult; I25.10 Atherosclerotic heart disease of native coronary artery without angina pectoris; F17.210 Nicotine dependence, cigarettes, uncomplicated; I73.9 Peripheral vascular disease, unspecified; E87.6 Hypokalemia; I25.5 Ischemic cardiomyopathy; E83.42 Hypomagnesemia; I50.9 Heart failure, unspecified; N18.1 Chronic kidney disease, stage 1; D47.3 Essential (hemorrhagic) thrombocythemia; D64.89 Other specified anemias; Z79.899 Other long term (current) drug therapy; Z89.511 Acquired absence of right leg below knee; Z79.82 Long term (current) use of aspirin; Z87.01 Personal history of pneumonia (recurrent); Z89.512 Acquired absence of left leg below knee
CPT/HCPCS: 36415; 36416; 71045; 71260; 72192; 76770; 80048; 80202; 81001; 81003; 81015; 82570; 82728; 83540; 83550; 83605; 83735; 83880; 83930; 83935; 84145; 84443; 84484; 85025; 85060; 87040; 87086; 88307; 88311; 93005; 93306; 94640; 94660; 94664; 96361; 96365; 96367; J0692; J1644; J1940; J2001; J2250; J2270; J2405; J2543; J2704; J2920; J2930; J3010; J3370; J3475; J3480; J3486; J3490; J7050; J7512; J7620; Q9966; S0028

== ENCOUNTER 2019-07-09 15:12 | Inpatient (IN) | payer MEDICARE ==
[2019-07-09] MEDS ORDERED: Lidocaine 1% w/Epinephrine 1:100K 20 ML VIAL ONE (15:26)
[2019-07-09 15:49] LABS: Bilirubin Small (Negative); Blood, Urine Large (Negative); Glucose, Urine (Dipstick) Negative (Negative); Leukocyte Large (Negative); Nitrite Negative (Negative); Protein, Urine (Dipstick) > or equal to 300 mg/dL (Neg-Trace); Urobilinogen 0.2 mg/dL (Less than 2)
[2019-07-09 15:51] LABS: Clarity Turbid (Clear)
[2019-07-09 16:01] LABS: WBC/HPF Greater Than 50 HPF (0-3)
[2019-07-09 16:02] LABS: Bacteria/HPF 4+ HPF (None Seen); Squamous Epithelial 0-3 HPF (0-3); Yeast-Hyphae 1+ HPF (None Seen)
[2019-07-09] MEDS ORDERED: Piperacillin/Tazobactam 3.375 GM VIAL ONE (16:02)
--- NOTE | 2019-07-09 16:13 | RAD ---
Chest one view HISTORY: Sepsis. Dyspnea. COMPARISON: 06/14/2019. FINDINGS: Cardiac silhouette is magnified and enlarged. Pulmonary vasculature remains engorged. Media stinum is midline with postoperative changes apparent. Ill-defined parenchymal infiltrate in the right upper lobe is similar in appearance to the prior study. Bibasilar infiltrates are also stable. No evidence of pneumothorax. Tip of a left subclavian central venous catheter projects over the superior vena cava. Cardiac monito r leads overlie the chest. IMPRESSION: Left subclavian central venous catheter is in good radiographic position. Chronic bilateral airspace disease, stable compared to the 06/14/2019 exam.
[2019-07-09 16:20] LABS: INR-International Normal Ratio 1.3; Prothrombin Time 15.8 SEC (12.0-14.7)
[2019-07-09 16:21] LABS: PTT 54.6 SEC (22.9-36.1)
[2019-07-09 16:36] LABS: ALT (SGPT) 13 U/L (8-55); AST (SGOT) 23 U/L (5-34); Albumin 1.4 g/dL (3.4-4.8); Alkaline Phosphatase 156 U/L (40-150); Anion Gap 8 mmol/L (10-20); BUN (Urea Nitrogen) 7 mg/dL (8.4-25.7); Bilirubin, Total 0.3 mg/dL (0.2-1.2); CK (CPK) 26 U/L (30-200); Calc. Creatinine Clearance 0 mL/min (70-130); Calcium 7.1 mg/dL (7.8-10.44); Carbon Dioxide 25 mmol/L (23-31); Chloride 102 mmol/L (98-107); Estimated GFR-MDRD Greater than 90; Globulin 2.7 g/dL (2.4-3.5); Glucose 86 mg/dL (80-115); Potassium 3.1 mmol/L (3.5-5.1); Protein, Total 4.1 g/dL (5.8-8.1); Sodium 132 mmol/L (136-145)
[2019-07-09] MEDS ORDERED: Norepinephrine 8 MG in Dextrose 5% in Water 242 ML IVPB PRN (16:38)
[2019-07-09] MEDS ORDERED: Potassium Chloride 20 MEQ TAB ONE (17:31)
[2019-07-09] MEDS ORDERED: Acetaminophen 650 MG Suppository PR PRN (18:48)
[2019-07-09] MEDS ORDERED: Bisacodyl 5 MG TAB PO PRN (18:48)
[2019-07-09] MEDS ORDERED: Acetaminophen 325 MG TAB PO PRN (18:48)
[2019-07-09] MEDS ORDERED: Ondansetron PF 4 MG/2 ML Vial IVP PRN (18:48)
[2019-07-09] MEDS ORDERED: Norepinephrine 8 MG/0.9% NS 250 ML IVPB SCH (19:00)
[2019-07-09] MEDS ORDERED: Vancomycin HCl 1 GM in Premix Bag 1 BAG IVPB SCH (19:00)
[2019-07-09] MEDS ORDERED: Norepinephrine 8 MG in Dextrose 5% in Water 242 ML IVPB SCH (19:15)
--- NOTE | 2019-07-09 19:31 | HP ---
PRIMARY CARE PROVIDER: Dr. Luther Weller. CHIEF COMPLAINT: Low blood pressure. HISTORY OF PRESENT ILLNESS: Mr. Romeo is a pleasant 64-year-old gentleman, who was seen at [facility] on July 09, 2019. He was sent here from [facility] because of low blood pressure. The patient is able to provide history. Collateral history was obtained from discussion with the patient's , discussion with emergency room physician, and review of medical records. He reports having left below-knee amputation approximately 4 years ago. He also reports having right above-knee amputation a few months ago, but is unclear as to when. He was admitted to [facility] on May 25, 2019, for acute hypoxic respiratory failure, pneumonia, and COPD exacerbation. During that hospitalization, his groin culture grew Escherichia coli, presumptive Klebsiella/Enterobacter, and presumptive Pseudomonas aeruginosa. He was transferred to inpatient rehab on June 10, 2019. On June 18, he was transferred to acute care at [facility] because of progressive worsening shortness of breath, confusion, and wound dehiscence. From [facility], he was transferred to [facility]. X-rays showed opacities, representing atelectasis versus pneumonia versus pulmonary edema. He was treated with vancomycin and Zosyn for sepsis. He underwent right above knee amputation, wound exploration with debridement and revision without complications. He subsequently underwent CT angiogram of the chest for acute shortness of breath and was found to have multiple bilateral lower lobe pulmonary nodules, bilateral pleural effusions, mediastinal lymphadenopathy, and right upper lobe consolidation. He was diagnosed with aspiration pneumonia. There were plans for possible PEG placement. He was then transferred to [facility] on July 04, 2019. The patient reports a chronic cough. He denies sputum. He has a Francisco catheter, which is draining cloudy urine. The patient and cannot recall when the Francisco was placed. He also reports chronic sacral wound. REVIEW OF SYSTEMS: All other systems were reviewed and found to be negative. PAST MEDICAL HISTORY: Atrial fibrillation, anemia, coronary artery disease, congestive heart failure, COPD, dyslipidemia, migraines, osteoporosis, peripheral vascular disease, cardiac arrhythmia, chronic hyponatremia, and nephrolithiasis. PAST SURGICAL HISTORY: Right lower extremity above-knee amputation, left lower extremity below-knee amputation, coronary artery bypass graft, renal stent, multiple thoracentesis through Interventional Radiology, and left lower extremity femoral-popliteal bypass. FAMILY HISTORY: The patient reports several family members with heart disease. SOCIAL HISTORY: The patient denies any current tobacco use, alcohol use, or recreational drug use. ALLERGIES: LATEX GLOVES AND SODIUM BICARBONATE. CURRENT MEDICATIONS: 1. DuoNebs p.r.n. 2. Amiodarone 200 mg two times a day. 3. Aspirin 81 mg daily. 4. Atorvastatin 20 mg daily. 5. Vitamin D3 daily. 6. Plavix 75 mg daily. 7. Combivent Respimat one puff b.i.d. 8. Potassium chloride 20 mEq two times a day. PHYSICAL EXAMINATION: GENERAL: Mr. Romeo is awake and alert, not in acute distress. VITAL SIGNS: Blood pressure is 111/69, pulse 82, respiratory rate 17, and oxygen saturation 93% on 4 L of oxygen. He is afebrile. EYES: No scleral icterus. No conjunctival pallor. ENT: Moist mucosal membranes. No oropharyngeal thrush. NECK: Supple, nontender. Trachea is midline. RESPIRATORY: Accessory muscles of breathing are not active. Chest wall movements are symmetric bilaterally. Lung examination reveals diffuse expiratory wheeze. CARDIOVASCULAR: He has a left subclavian line. S1 and S2 are heard, regular. No pericardial rub. ABDOMEN: Soft, nontender. Bowel sounds are heard. MUSCULOSKELETAL: Status post right above-knee amputation and left below-knee amputation, the patient is moving all 4 extremities. BODY HABITUS: The patient appears frail and malnourished. NEUROLOGIC: Cranial nerves 2 through 12 are intact. SKIN: No rashes. LYMPHATIC: No cervical lymphadenopathy. PSYCHIATRIC: Normal mood, normal affect, the patient is oriented to person and place, not time. LABORATORY DATA AND INVESTIGATIONS: Mr. Romeo's labs and investigations were reviewed. 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 I reviewed his chest x-ray, which shows bilateral pulmonary infiltrates. He has leukocytosis with 14,500 white cells, of which 85.7% are neutrophils. He has normocytic anemia with hemoglobin 6.8 and elevated platelet count of 495,000. INR is 1.3. He has decreased sodium of 132, decreased potassium of 3.1, creatinine 0.59, normal lactic acid of 1.2, elevated creatine kinase of 156, normal total bilirubin, normal AST, normal ALT, and troponin-I less than 0.010. Urinalysis is positive for large amount of leukocyte esterase and bacteria, negative for nitrite. ASSESSMENT AND PLAN: Mr. Romeo is a pleasant 64-year-old gentleman, who was seen at [facility] on July 09, 2019. His problem list includes: 1. Septic shock: Mr. Romeo presented with septic shock. He received intravenous fluids without significant improvement in blood pressure. He now has a central line and is on Levophed infusion. He will be admitted to the Critical Care Unit for further management. 2. He does have 2 or 3 possible sources of infection, including sacral wound, right lower extremity stump wound, pneumonia, and urinary tract infection. He has received Zosyn and vancomycin, which I will continue. We will await cultures. 3. Chronic obstructive pulmonary disease: We will order p.r.n. DuoNebs. 4. Coronary artery disease: Appears to be stable, he has normal troponin high. 5. Migraines: Stable. Many thanks for allowing me to participate in your patient's care. Please feel free to contact me with any questions or concerns. LEVEL OF RISK: High. LEVEL OF COMPLEXITY: High. Job ID: [id number]
[2019-07-09 20:47] LABS: #Eosinphils 0.1 thou/uL (0.0-0.7); #Lymphocytes 1.1 thou/uL (1.20-3.40); #Monocytes 1.2 thou/uL (0.11-0.59); #Neutrophils 16.1 thou/uL (1.40-6.50); %Eosinophils 0.3 % (0.0-10.0); %Lymphocytes 6.1 % (21.0-51.0); %Monocytes 6.4 % (0.0-10.0); %Neutrophils 87.2 % (42.0-75.0); Mean Corpuscular HGB CONC 30.2 g/dL (32.0-36.0); Mean Corpuscular Hemoglobin 24.2 pg (27.0-31.0); Mean Corpuscular Volume 79.9 fL (78.0-98.0); Platelet Count 656 thou/uL (130-400); RBC Distribution Width 20.6 % (11.5-14.5); Red Blood Cell (RBC) Count 2.89 mill/uL (4.70-6.10); White Blood Cell (WBC) Count 18.4 thou/uL (4.8-10.8)
[2019-07-09] MEDS: Sodium Chloride 0.9% 1,000 ML IV SCH (21:29)
[2019-07-09] MEDS: Piperacillin/Tazobactam 4.5 GM in Sodium Chloride 0.9% 100 ML IVPB SCH (22:55)
[2019-07-09] MEDS: Morphine 2 MG/ML SYRINGE SLOW IVP PRN (23:04)
[2019-07-10] MEDS: Sodium Chloride 0.9% 1,000 ML IV SCH (02:47)
[2019-07-10] MEDS: Morphine 2 MG/ML SYRINGE SLOW IVP PRN ×2 (02:47→15:58)
[2019-07-10] MEDS: Vancomycin HCl 750 MG in Sodium Chloride 0.9% 250 ML 250 ML IVPB SCH ×2 (04:50→17:50)
[2019-07-10 05:27] LABS: #Eosinphils 0.1 thou/uL (0.0-0.7); #Lymphocytes 1.2 thou/uL (1.20-3.40); #Monocytes 1.1 thou/uL (0.11-0.59); #Neutrophils 14.6 thou/uL (1.40-6.50); %Basophils 0.1 % (0.0-1.0); %Eosinophils 0.6 % (0.0-10.0); %Lymphocytes 6.9 % (21.0-51.0); %Monocytes 6.6 % (0.0-10.0); %Neutrophils 85.8 % (42.0-75.0); Mean Corpuscular HGB CONC 30.7 g/dL (32.0-36.0); Mean Corpuscular Hemoglobin 24.6 pg (27.0-31.0); Mean Corpuscular Volume 80.3 fL (78.0-98.0); Mean Platelet Volume 6.8 fL (7.4-10.4); Platelet Count 598 thou/uL (130-400); RBC Distribution Width 20.6 % (11.5-14.5); Red Blood Cell (RBC) Count 2.44 mill/uL (4.70-6.10)
[2019-07-10 05:45] LABS: ALT (SGPT) 14 U/L (8-55); AST (SGOT) 28 U/L (5-34); Albumin 1.5 g/dL (3.4-4.8); Alkaline Phosphatase 169 U/L (40-150); Anion Gap 9 mmol/L (10-20); BUN (Urea Nitrogen) 6 mg/dL (8.4-25.7); Bilirubin, Total 0.4 mg/dL (0.2-1.2); Calc. Creatinine Clearance 93 mL/min (70-130); Carbon Dioxide 22 mmol/L (23-31); Chloride 107 mmol/L (98-107); Estimated GFR-MDRD Greater than 90; Globulin 2.9 g/dL (2.4-3.5); Glucose 84 mg/dL (80-115); Potassium 3.2 mmol/L (3.5-5.1); Protein, Total 4.4 g/dL (5.8-8.1); Sodium 135 mmol/L (136-145)
[2019-07-10] MEDS: Piperacillin/Tazobactam 4.5 GM in Sodium Chloride 0.9% 100 ML IVPB SCH ×3 (06:18→22:48)
[2019-07-10] MEDS ORDERED: Enoxaparin Sodium 40 MG/0.4 ML SYRINGE SC SCH (09:00)
[2019-07-10] MEDS: Famotidine 20 MG TAB PO SCH ×2 (09:22→22:49)
[2019-07-10] MEDS: HYDROcodone/Acetaminophen 5/325 mg Tablet PO PRN ×2 (11:19→17:51)
--- NOTE | 2019-07-10 11:31 | CON ---
DATE OF CONSULTATION: 07/10/2019 CONSULTING PHYSICIAN: Crowist . REASON FOR CONSULTATION: ICU placement. HISTORY OF PRESENT ILLNESS: Mr. Romeo is a 64-year-old male, who was sent here from rehab with low blood pressure. He was briefly on Levophed. It is presumed he is in septic shock. He has a right leg stump from previous amputation revisions. He has grown out multiple organisms in the past and has had multiple hospitalizations in the past. Please see history and physical for details on that. He is complaining of some shortness of breath. He also apparently has a small sacral wound, which is stage 2 according to nursing staff. PAST MEDICAL HISTORY: 1. Atrial fibrillation. 2. Coronary artery disease. 3. Congestive heart failure. 4. Chronic obstructive pulmonary disease. 5. Cardiac arrhythmias. 6. Hyponatremia. 7. Nephrolithiasis. PAST SURGICAL HISTORY: 1. Right below the knee amputation, revised right above the knee amputation and requiring further debridement. 2. Coronary artery bypass grafting surgery. 3. Renal stent placement. 4. Multiple thoracenteses for pleural effusion. 5. Left AKA. FAMILY MEDICAL HISTORY: Remarkable for heart disease. SOCIAL HISTORY: Previous tobacco use. Does not consume alcohol. MEDICATIONS: Prior to admission; 1. DuoNeb. 2. Amiodarone. 3. Aspirin. 4. Atorvastatin. 5. Vitamin D3. 6. Plavix. 7. Combivent. 8. Potassium chloride. PHYSICAL EXAMINATION: VITAL SIGNS: Temperature 99, pulse 83, blood pressure 139/54, O2 saturation 100%. He has just been weaned off Levophed drip. HEENT: Unremarkable. NECK: No adenopathy or JVD. LUNGS: Coarse rhonchi. CARDIAC: S1, S2. Regular. ABDOMEN: Soft, nontender. EXTREMITIES: He has sutured right AKA incision with some pus extruding from that. He has a left below-knee amputation. LABORATORY DATA: Sodium 135, potassium 3.2, chloride 107, CO2 of 22, BUN 6, creatinine 0.5, and glucose 84. Lactate was 1.2. White blood cell count 17, hemoglobin 6, hematocrit 19.6, and platelet count 598. INR 1.3. Urinalysis showed greater than 50 white blood cells. Urine culture growing yeast. ASSESSMENT: 1. Septic shock, presumably from wound infection, possibly from urinary tract infection. 2. Multiple medical problems listed above. PLAN: 1. Broad-spectrum IV antibiotics. 2. Vascular surgery consultation. 3. We will follow with you. Job ID: [id number]
[2019-07-10] MEDS ORDERED: Magnesium Sulfate 2 GM, Potassium Chloride 40 MEQ in Sodium Chloride 0.9% 250 ML 250 ML IV SCH (15:00)
--- NOTE | 2019-07-10 17:18 | CON ---
DATE OF CONSULTATION: HISTORY OF PRESENT ILLNESS: Mr. Romeo is a 64-year-old gentleman, who on June 04 underwent a right ujnzn-rbu-ulth amputation, revision of a below-knee amputation for an ischemic stump. He was being managed over the rehab center, and apparently, had returned through the Emergency Department at some point in early July. We were never contacted on this evaluation, and he was transferred to [place]. His stump had fallen apart and it was revised and a wound VAC placed per his family. This was later closed secondarily. He presents in septic shock through the emergency department at this time. I was asked to look at his stump, which has broken down in a couple of places. All the sutures were removed and the tissue is marginal in both the hamstrings and the remaining quadriceps musculature. A wound VAC was placed. He is currently being worked up for other sources of sepsis, but this does not acutely appear to be a septic source although the stump is truly ischemic, which is going to be a long-term healing problem for him. This at some point may need a hip disarticulation if that is what he wants to do, although I think that is really going at this point above and beyond, where we should go in this situation. For now, we will manage him with a wound VAC and evaluate his stump again at a later time. PAST MEDICAL HISTORY: 1. Peripheral vascular disease. 2. Anemia. 3. Atrial fibrillation. 4. Coronary artery disease. 5. Congestive heart failure. 6. COPD. 7. Dyslipidemia. 8. Osteoporosis. 9. Nephrolithiasis. PAST SURGICAL HISTORY: 1. Bilateral amputations. 2. Coronary artery bypass grafting. 3. Renal stenting. 4. Left fem-pop bypass. 5. Multiple thoracenteses. SOCIAL HISTORY: He currently is not using tobacco. ALLERGIES: LATEX. CURRENT MEDICATIONS: Noted. PHYSICAL EXAMINATION: The stump skin edges were mushy, and there was no real healing of the skin edges. All the sutures were removed-multiple. These had already torn through the skin. Wound VAC was placed. This will probably need to be debrided next week in the operating room if the patient desires. Job ID: [id number]
--- NOTE | 2019-07-10 17:29 | PDOC.HOSPP ---
- Subjective Encounter Date: 07/10/19 Encounter Time: 14:00 Subjective: Pt seen for followup re: sepsis. Feels ill. No chest pain. SOBOE+. - Objective Vital Signs & Weight: Vital Signs (12 hours) Temp Pulse Resp BP Pulse Ox 07/10/19 16:40 97.6 F 86 16 109/99 H 96 07/10/19 16:00 98.0 F 91 18 96/60 96 07/10/19 15:04 81 25 H 100 07/10/19 12:00 98.1 F 07/10/19 09:18 92 24 H 100 07/10/19 08:00 98.9 F 99 Weight Admit Weight 106 lb Weight 105 lb 9.623 oz Most Recent Monitor Data Heart Rate from ECG 90 NIBP 111/62 NIBP BP-Mean 78 Respiration from ECG 23 SpO2 99 I&O: 07/09/19 07/10/19 07/11/19 06:59 06:59 06:59 Intake Total 1844 467.7 Output Total 265 255 Balance 1579 212.7 Result Diagrams: 07/10/19 05:10 07/10/19 05:10 Additional Labs: Labs and MARs reviewed by me EKG Reviewed by me: Yes (Tele: NSR) ROS - Review of Systems Constitutional: reports: weakness. denies: fever, chills, sweats, malaise Respiratory: reports: cough, dry, SOB with excertion. denies: shortness of breath, hemoptysis, pleuritic pain, sputum, wheezing Cardiovascular: denies: chest pain, palpitations, orthopnea, paroxysmal noc. dyspnea, edema, light headedness Gastrointestinal: denies: nausea, vomitting, abdominal pain, diarrhea, constipation, melena, hematochezia Skin: reports: lesions - Medication Medications: Active Medications Generic Name Dose Route Start Last Admin Trade Name Freq PRN Reason Stop Dose Admin Hydrocodone Bitart/Acetaminophen 2 tab 07/10/19 09:15 07/10/19 11:19 [place] 5/325 PO 2 tab Q4H PRN Administration Pain Albuterol/Ipratropium 3 ml 07/09/19 19:00 07/10/19 15:04 Duoneb NEB 3 ml Q6H PRN Administration SOB &/or Wheezing Famotidine 20 mg 07/10/19 09:00 07/10/19 09:22 Pepcid PO Not Given BID DA Piperacillin Sod/Tazobactam 100 mls @ 200 mls/hr 07/09/19 22:00 07/10/19 14: 04 Sod 4.5 gm/ Sodium Chloride IVPB 100 mls Q8HR DA Administration Vancomycin HCl 750 mg/ Sodium 250 mls @ 250 mls/hr 07/10/19 05:00 07/10/19 04 :50 Chloride IVPB 250 mls 0500,1700 DA Administration Morphine Sulfate 2 mg 07/09/19 22:39 07/10/19 15:58 Morphine SLOW IVP 2 mg Q4H PRN Administration Moderate to Severe Pain (4-10) - Exam General - other findings: appears malnourished Eye: anicteric sclera ENT: normocephalic atraumatic Neck: supple, symmetric, no JVD, no thyromegaly Heart: RRR, no gallops, no rubs Respiratory: no rales, no ronchi, normal chest expansion, wheezes Gastrointestinal: soft, non-tender, non-distended, normal bowel sounds Skin - other findings: wounds as documented Musculoskeletal - other findings: s/p R AKA and L BKA Psychiatric: normal affect, normal behavior, oriented to person, oriented to place Hosp A/P (1) Sepsis Code(s): A41.9 - SEPSIS, UNSPECIFIED ORGANISM Status: Acute (2) Wound infection Code(s): T14.8XXA - OTHER INJURY OF UNSPECIFIED BODY REGION, INITIAL ENCOUNTER; L08.9 - LOCAL INFECTION OF THE SKIN AND SUBCUTANEOUS TISSUE, UNSP Status: Acute (3) UTI (urinary tract infection) Status: Acute (4) Pneumonia, bacterial Code(s): J15.9 - UNSPECIFIED BACTERIAL PNEUMONIA Status: Acute (5) Severe protein-calorie malnutrition Code(s): E43 - UNSPECIFIED SEVERE PROTEIN-CALORIE MALNUTRITION Status: Chronic (6) CAD (coronary artery disease) Code(s): I25.10 - ATHSCL HEART DISEASE OF [place] CORONARY ARTERY W/O ANG PCTRS Status: Chronic - Plan PT/OT, out of bed/ambulate Continue IV Zosyn and vancomycin. Follow cultures. CAD stable.
[2019-07-10] MEDS ORDERED: Lidocaine Patch Removal 1 EACH TOP PRN (20:55)
[2019-07-10] MEDS: Lidocaine 5% Patch TD PRN (22:48)
[2019-07-11] MEDS: Vancomycin HCl 750 MG in Sodium Chloride 0.9% 250 ML 250 ML IVPB SCH ×3 (05:30→20:59)
[2019-07-11] MEDS: Piperacillin/Tazobactam 4.5 GM in Sodium Chloride 0.9% 100 ML IVPB SCH ×3 (05:49→21:00)
[2019-07-11 06:16] LABS: #Eosinphils 0.1 thou/uL (0.0-0.7); #Lymphocytes 1.1 thou/uL (1.20-3.40); #Monocytes 1.1 thou/uL (0.11-0.59); #Neutrophils 12.2 thou/uL (1.40-6.50); %Basophils 0.1 % (0.0-1.0); %Eosinophils 0.8 % (0.0-10.0); %Lymphocytes 7.2 % (21.0-51.0); %Monocytes 7.7 % (0.0-10.0); %Neutrophils 84.2 % (42.0-75.0); Hemoglobin 8.2 g/dL (14.0-18.0); Mean Corpuscular HGB CONC 31.6 g/dL (32.0-36.0); Mean Corpuscular Hemoglobin 26.1 pg (27.0-31.0); Mean Corpuscular Volume 82.4 fL (78.0-98.0); Mean Platelet Volume 7.1 fL (7.4-10.4); Platelet Count 556 thou/uL (130-400); RBC Distribution Width 19.6 % (11.5-14.5); Red Blood Cell (RBC) Count 3.13 mill/uL (4.70-6.10); White Blood Cell (WBC) Count 14.5 thou/uL (4.8-10.8)
[2019-07-11 06:32] LABS: Vancomycin, Trough 15.4 ug/mL
[2019-07-11 06:40] LABS: ALT (SGPT) 15 U/L (8-55); AST (SGOT) 29 U/L (5-34); Albumin 1.6 g/dL (3.4-4.8); Alkaline Phosphatase 172 U/L (40-150); Anion Gap 12 mmol/L (10-20); BUN (Urea Nitrogen) 6 mg/dL (8.4-25.7); Bilirubin, Total 0.5 mg/dL (0.2-1.2); Calc. Creatinine Clearance 87 mL/min (70-130); Calcium 7.4 mg/dL (7.8-10.44); Carbon Dioxide 19 mmol/L (23-31); Chloride 111 mmol/L (98-107); Estimated GFR-MDRD Greater than 90; Globulin 3.2 g/dL (2.4-3.5); Glucose 68 mg/dL (80-115); Potassium 3.9 mmol/L (3.5-5.1); Protein, Total 4.8 g/dL (5.8-8.1); Sodium 138 mmol/L (136-145)
[2019-07-11] MEDS: Fluconazole In NaCl,Iso-Osm 200 MG in Premix Bag 1 BAG IVPB SCH (08:15)
[2019-07-11] MEDS: Famotidine 20 MG TAB PO SCH ×2 (08:25→23:41)
--- NOTE | 2019-07-11 10:56 | RAD ---
EXAM: Single view of the chest HISTORY: Shortness of breath COMPARISON: 07/09/2019 FINDINGS: Single view of the chest shows an enlarged but stable cardiomediastinal silhouette. The pa tient is status post sternotomy. The central venous catheter is unchanged in position. Airspace opacity seen in the inferior aspect of the right upper lobe. There appears to be small bilateral pleu ral effusions. Increased interstitial markings are present. The bones are unremarkable. IMPRESSION: Stable exam
[2019-07-11 11:08] LABS: Actual Bicarbonate (HCO3a) 19.2 mEq/L (22-28); Analyzer IN Cardio OR; Base Excess (BEa) -5.1 mEq/L (-2.0 to +3.0); CO2 Tension 32.5 mmHg (35.0-45.0); Calcium, Ionized 1.15 mmol/L (1.12-1.30); Hemoglobin (Hb) 8.9 g/dL (14.0-18.0); O2 Tension (PaO2) 119.8 mmHg (> 80.0); Potassium - ABG Lab 3.85 mmol/L (3.70-5.30); Puncture Site LRA; pH, Arterial 7.39 (7.35-7.45)
[2019-07-11 11:09] LABS: ALV-art Gradient 124.775 (0-20)
[2019-07-11] MEDS ORDERED: Furosemide 40 MG/4 ML VIAL ONE (12:51)
[2019-07-11] MEDS ORDERED: Furosemide 20 MG/2 ML VIAL SLOW IVP SCH ×2 (13:00→14:30)
[2019-07-11] MEDS ORDERED: Nystatin Powder 15 GM BOT TOP PRN (13:56)
[2019-07-11] MEDS: HYDROcodone/Acetaminophen 5/325 mg Tablet PO PRN (13:58)
[2019-07-11] MEDS ORDERED: Boudreaux's Butt Paste 60 GM TUBE TOP PRN (13:59)
[2019-07-11 14:10] LABS: Troponin I 0.027 ng/mL (< 0.028)
--- NOTE | 2019-07-11 16:10 | PDOC.HOSPP ---
- Subjective Encounter Date: 07/11/19 Encounter Time: 16:08 Subjective: Pt seen for followup re: volume overload. c/o shortness of breath, no chest pain. - Objective Vital Signs & Weight: Vital Signs (12 hours) Temp Pulse Pulse Resp BP BP Pulse Ox 07/11/19 15:48 92 24 H 07/11/19 15:35 97.5 F L 92 18 97/65 100 07/11/19 12:44 93 24 H 100 07/11/19 12:30 97.5 F L 92 28 H 130/83 99 07/11/19 12:00 99 07/11/19 08:00 98.2 F 94 20 118/87 97 07/11/19 07:27 97 07/11/19 07:26 94 16 97 07/11/19 04:30 97.8 F 95 18 95/55 L 100 Weight Admit Weight 106 lb Weight 105 lb 9.623 oz Most Recent Monitor Data Heart Rate from ECG 90 NIBP 111/62 NIBP BP-Mean 78 Respiration from ECG 23 SpO2 99 I&O: 07/10/19 07/11/19 07/12/19 06:59 06:59 06:59 Intake Total 1844 817.7 Output Total 486 813 9871 Balance 1579 562.7 -1475 Result Diagrams: 07/11/19 06:00 07/11/19 06:00 EKG Reviewed by me: Yes (Tele: NSR) ROS - Review of Systems Respiratory: reports: cough, shortness of breath. denies: dry, hemoptysis, SOB with excertion, pleuritic pain, sputum, wheezing Cardiovascular: denies: chest pain, palpitations, orthopnea, paroxysmal noc. dyspnea, edema, light headedness - Medication Medications: Active Medications Generic Name Dose Route Start Last Admin Trade Name Freq PRN Reason Stop Dose Admin Hydrocodone Bitart/Acetaminophen 2 tab 07/10/19 09:15 07/11/19 13:58 [place] 5/325 PO 2 tab Q4H PRN Administration Pain Albuterol/Ipratropium 3 ml 07/11/19 03:10 07/11/19 07:26 Duoneb NEB 3 ml Q4H PRN Administration SOB &/or Wheezing Albuterol/Ipratropium 3 ml 07/11/19 14:30 07/11/19 15:48 Duoneb NEB 3 ml [id number] DA Administration Famotidine 20 mg 07/10/19 09:00 07/11/19 08:25 Pepcid PO Not Given BID DA Piperacillin Sod/Tazobactam 100 mls @ 200 mls/hr 07/09/19 22:00 07/11/19 14: 38 Sod 4.5 gm/ Sodium Chloride IVPB 100 mls Q8HR DA Administration Fluconazole/Sodium Chloride 100 mls @ 100 mls/hr 07/11/19 09:00 07/11/19 08: 15 200 mg/ Device IVPB 100 mls DAILY DA Administration Vancomycin HCl 750 mg/ Sodium 250 mls @ 250 mls/hr 07/11/19 09:00 07/11/19 10 :12 Chloride IVPB 250 mls 0900,2100 DA Administration Lidocaine 1 patch 07/10/19 20:50 07/10/19 22:48 Lidoderm 5% Patch TD 1 patch DAILY PRN Administration Pain Morphine Sulfate 2 mg 07/09/19 22:39 07/10/19 15:58 Morphine SLOW IVP 2 mg Q4H PRN Administration Moderate to Severe Pain (4-10) - Exam General - other findings: malnourished Eye: anicteric sclera ENT: normocephalic atraumatic Neck: supple Heart: RRR Respiratory - other findings: Petar crackles, tachypnea Gastrointestinal: soft Musculoskeletal: normal tone Psychiatric: normal affect Hosp A/P (1) Volume overload Code(s): E87.70 - FLUID OVERLOAD, UNSPECIFIED Status: Acute (2) Sepsis Code(s): A41.9 - SEPSIS, UNSPECIFIED ORGANISM Status: Acute (3) Wound infection Code(s): T14.8XXA - OTHER INJURY OF UNSPECIFIED BODY REGION, INITIAL ENCOUNTER; L08.9 - LOCAL INFECTION OF THE SKIN AND SUBCUTANEOUS TISSUE, UNSP Status: Acute (4) UTI (urinary tract infection) Status: Acute (5) Pneumonia, bacterial Code(s): J15.9 - UNSPECIFIED BACTERIAL PNEUMONIA Status: Acute (6) Severe protein-calorie malnutrition Code(s): E43 - UNSPECIFIED SEVERE PROTEIN-CALORIE MALNUTRITION Status: Chronic (7) CAD (coronary artery disease) Code(s): I25.10 - ATHSCL HEART DISEASE OF [place] CORONARY ARTERY W/O ANG PCTRS Status: Chronic - Plan plan discussed w/ family, continue antibiotics, PT/OT, respiratory therapy BNP is elevated, administer furosemide. transfer to telemetry floor. Continue DuoNebs. Continue IV Zosyn and vancomycin. Follow cultures. CAD stable.
--- NOTE | 2019-07-11 18:03 | CON ---
DATE OF CONSULTATION: 07/11/2019 REASON FOR CONSULTATION: Pulmonary edema. PRIMARY GLASS WASHER AND CARRIER: Dr. Santos Jeronimo at [facility]. HISTORY OF PRESENT ILLNESS: Mr. Romeo is a pleasant 64-year-old white gentleman, who comes to the hospital for fevers. He had an qndjy-dln-kzhp amputation on the right leg and had problems healing, had to had it revised and he has a wound VAC on. He came back to the hospital for fevers and low blood pressure and was admitted for sepsis. He has been in the hospital with IV antibiotics for the last 2 days. Earlier today, he became very tachypneic and hypoxic. Chest x-ray confirmed CHF and he was started on IV Lasix and transferred to telemetry and Cardiology is being consulted for this. PAST MEDICAL HISTORY: 1. History of atrial fibrillation. 2. Anemia. 3. Coronary artery disease, status post CABG. 4. COPD. 5. Hyperlipidemia. 6. Migraine headaches. 7. Osteoporosis. 8. Peripheral vascular disease. 9. Chronic hyponatremia. 10. Nephrolithiasis. PAST SURGICAL HISTORY: 1. Right lower extremity mdrac-pdp-jnuc amputation. 2. Left lower extremity zdcjr-msd-hejs amputation. 3. CABG several years back. 4. Renal stent in the past. 5. Multiple thoracentesis. 6. Left lower extremity femoral-popliteal bypass. FAMILY HISTORY: Heart disease in several family members. SOCIAL HISTORY: No alcohol, tobacco, or drugs. ALLERGIES: LATEX GLOVES AND SODIUM BICARB. OUTPATIENT MEDICATIONS: Include: 1. DuoNeb. 2. Amiodarone 200 mg twice a day. 3. Aspirin 81 a day. 4. Atorvastatin 20 mg a day. 5. Vitamin D3. 6. Plavix 75 mg a day. 7. Combivent. 8. Potassium chloride 20 mEq twice a day. REVIEW OF SYSTEMS: A 12-point review of systems was done and negative unless stated in the history of present illness. PHYSICAL EXAMINATION: VITAL SIGNS: Temperature 97.5, pulse 92, respiratory rate 18, saturating 100% on 3 L nasal cannula, blood pressure 97/65. GENERAL: Awake, alert, oriented x3. No distress. HEENT: Normocephalic, atraumatic. NECK: Supple. LUNGS: Have coarse breath sounds bilaterally. CARDIOVASCULAR: S1 and S2. No S3 or S4. There is a grade 2/6 systolic murmur at the right upper sternal border. ABDOMEN: Soft. Positive bowel sounds. EXTREMITIES: Bilateral amputations. SKIN: Warm and dry. LABORATORY DATA: Laboratory work was reviewed. White count of 18 on admission, down to 14; hemoglobin of 8.2 up from 6.0; platelet count of 556. Chemistry was reviewed. BNP was 1973. Normal troponin x2. ASSESSMENT: 1. Acute on chronic systolic versus diastolic heart failure. 2. Coronary artery disease, stable at this time. No acute coronary syndrome. 3. Severe anemia, status post 1 unit of transfusion. Hemoglobin is stabilizing. PLAN: 1. Agree with IV diuresis. He is already putting out almost half a L and he is already feeling much better. 2. We will get an echocardiogram to assess LV function and valvular structures. 3. We will continue to follow. Thank you for letting us to participate in the care of your patient. Job ID: [id number]
[2019-07-11 18:24] LABS: Troponin I 0.013 ng/mL (< 0.028)
[2019-07-11] MEDS: Nystatin Powder 15 GM BOT TOP SCH (20:57)
[2019-07-12] MEDS: Piperacillin/Tazobactam 4.5 GM in Sodium Chloride 0.9% 100 ML IVPB SCH ×3 (05:15→23:39)
[2019-07-12 05:42] LABS: #Basophils 0.1 thou/uL (0.0-0.2); #Eosinphils 0.2 thou/uL (0.0-0.7); #Lymphocytes 1.3 thou/uL (1.20-3.40); #Monocytes 1.1 thou/uL (0.11-0.59); #Neutrophils 12.2 thou/uL (1.40-6.50); %Basophils 0.4 % (0.0-1.0); %Eosinophils 1.1 % (0.0-10.0); %Lymphocytes 8.5 % (21.0-51.0); %Monocytes 7.6 % (0.0-10.0); %Neutrophils 82.5 % (42.0-75.0); Hemoglobin 9.4 g/dL (14.0-18.0); Mean Corpuscular HGB CONC 31.5 g/dL (32.0-36.0); Mean Corpuscular Hemoglobin 26.2 pg (27.0-31.0); Mean Corpuscular Volume 83.2 fL (78.0-98.0); Mean Platelet Volume 7.1 fL (7.4-10.4); Platelet Count 610 thou/uL (130-400); RBC Distribution Width 19.8 % (11.5-14.5); Red Blood Cell (RBC) Count 3.58 mill/uL (4.70-6.10); White Blood Cell (WBC) Count 14.8 thou/uL (4.8-10.8)
[2019-07-12 06:01] LABS: ALT (SGPT) 13 U/L (8-55); AST (SGOT) 28 U/L (5-34); Albumin 1.6 g/dL (3.4-4.8); Alkaline Phosphatase 175 U/L (40-150); Anion Gap 16 mmol/L (10-20); BUN (Urea Nitrogen) 6 mg/dL (8.4-25.7); Bilirubin, Total 0.4 mg/dL (0.2-1.2); Calc. Creatinine Clearance 85 mL/min (70-130); Calcium 7.7 mg/dL (7.8-10.44); Carbon Dioxide 17 mmol/L (23-31); Chloride 111 mmol/L (98-107); Estimated GFR-MDRD Greater than 90; Globulin 3.3 g/dL (2.4-3.5); Glucose 65 mg/dL (80-115); Potassium 3.6 mmol/L (3.5-5.1); Protein, Total 4.9 g/dL (5.8-8.1); Sodium 140 mmol/L (136-145)
[2019-07-12] MEDS: Vancomycin HCl 750 MG in Sodium Chloride 0.9% 250 ML 250 ML IVPB SCH ×2 (08:40→21:59)
[2019-07-12] MEDS: Famotidine 20 MG TAB PO SCH ×2 (08:40→21:55)
[2019-07-12] MEDS: Fluconazole In NaCl,Iso-Osm 200 MG in Premix Bag 1 BAG IVPB SCH (08:41)
[2019-07-12] MEDS: Nystatin Powder 15 GM BOT TOP SCH ×2 (08:42→21:56)
--- NOTE | 2019-07-12 10:15 | PRG ---
DATE OF SERVICE: 07/12/2019 SUBJECTIVE: The patient had trouble with his breathing after a procedure yesterday. He says he is better today and has no acute complaints about that. He does tell me he has significant COPD at baseline. OBJECTIVE: VITAL SIGNS: His temperature is 98.1, pulse 92, respiratory rate 22, and O2 saturation 100% on 2 L. HEENT: Unremarkable. NECK: No adenopathy or JVD. LUNGS: He has mild expiratory wheezing. CARDIAC: S1 and S2. Regular. ABDOMEN: Soft. EXTREMITIES: He has a left leg wound VAC. ASSESSMENT: 1. Cellulitis/wound infection, left lower extremity. 2. Chronic obstructive pulmonary disease. 3. Status post septic shock. PLAN: Continue nebulization treatments and low-flow oxygen. I would try to avoid steroids given his wound situation. He is probably stable for transfer to the medical floor. Job ID: [id number]
--- NOTE | 2019-07-12 17:18 | PDOC.CTH ---
Cardiology Progress Note - Subjective Feeling better. Diuresed about 3 litres yesterday. - Objective Vital Signs Temp Pulse Resp BP Pulse Ox 07/12/19 16:22 98.6 F 96 22 H 106/61 100 07/12/19 14:49 95 22 H 100 07/12/19 12:29 98 F 98 20 136/80 100 07/12/19 11:04 90 24 H 98 07/12/19 07:56 92 22 H 100 07/12/19 07:04 98.1 F 92 20 124/70 96 Admit Weight 106 lb Weight 105 lb 9.623 oz 07/11/19 07/12/19 07/13/19 06:59 06:59 06:59 Intake Total 817.7 450 Output Total 255 4175 Balance 562.7 -3725 - Physical Examination General/Neuro: alert & oriented x3, NAD Neck: no JVD present Lungs: unlabored respirations Heart: RRR Abdomen: NT/ND Extremities: other: (Bilat amputations) - Telemetry Telemetry Rhythm: NSR - Labs Result Diagrams: 07/12/19 05:27 07/12/19 05:27 Troponin/CKMB Troponin I 0.013 ng/mL (< 0.028) 07/11/19 17:51 - Assessment/Plan 1. Acute on chronic systolic and diastolic heart failure. 2. CAD stable, no ACS 3. Severe anemia, improved after PRBC's. 4. Sepsis. 5. Wound vac on recent amputation stump PLAN: - Continue IV diuresis - Echo pending.
[2019-07-12] MEDS ORDERED: Furosemide 40 MG/4 ML VIAL SLOW IVP SCH (17:30)
--- NOTE | 2019-07-12 17:50 | PDOC.HOSPP ---
- Subjective Encounter Date: 07/12/19 Encounter Time: 17:40 Subjective: f/u for resp failure, acute/chronic systolic CHF diuresing secondary to volume overload and sepsis secondary to LE wound receiving Vancomycin/Zosyn. - Objective Vital Signs & Weight: Vital Signs (12 hours) Temp Pulse Resp BP Pulse Ox 07/12/19 16:22 98.6 F 96 22 H 106/61 100 07/12/19 14:49 95 22 H 100 07/12/19 12:29 98 F 98 20 136/80 100 07/12/19 11:04 90 24 H 98 07/12/19 07:56 92 22 H 100 07/12/19 07:04 98.1 F 92 20 124/70 96 Weight Admit Weight 106 lb Weight 105 lb 9.623 oz Most Recent Monitor Data Heart Rate from ECG 90 NIBP 111/62 NIBP BP-Mean 78 Respiration from ECG 23 SpO2 99 I&O: 07/11/19 07/12/19 07/13/19 06:59 06:59 06:59 Intake Total 817.7 450 480 Output Total 255 4175 400 Balance 562.7 -3725 80 Result Diagrams: 07/12/19 05:27 07/12/19 05:27 Additional Labs: Accuchecks 07/12/19 05:28 POC Glucose 65 L Microbiology 07/09/19 15:31 Urine liao catheter Urine Culture - Final Presumptive Delilah albicans 07/09/19 15:30 Venous blood - Left Arm Blood Culture - Preliminary NO GROWTH AT 48 HOURS 07/09/19 15:30 Venous blood - Left Arm Blood Culture - Preliminary NO GROWTH AT 48 HOURS Laboratory Tests 07/08/19 07/09/19 07/09/19 04:00 04:50 20:42 WBC 18.4 H Hgb 7.0 L Plt Count 656 H B-Natriuretic Peptide 413.0 H 462.7 H Vancomycin Trough 07/10/19 07/11/19 07/11/19 05:10 06:00 06:00 WBC 17.0 H 14.5 H Hgb 6.0 L 8.2 L Plt Count 598 H 556 H B-Natriuretic Peptide Vancomycin Trough 15.4 07/11/19 13:34 WBC Hgb Plt Count B-Natriuretic Peptide 1973.5 H Vancomycin Trough Radiology Reviewed by me: Yes (PCXR - increased interstitial markings bilat) EKG Reviewed by me: Yes (Tele - SR) ROS - Medication Medications: Active Medications Generic Name Dose Route Start Last Admin Trade Name Freq PRN Reason Stop Dose Admin Hydrocodone Bitart/Acetaminophen 2 tab 07/10/19 09:15 07/11/19 13:58 [place] 5/325 PO 2 tab Q4H PRN Administration Pain Albuterol/Ipratropium 3 ml 07/11/19 03:10 07/11/19 07:26 Duoneb NEB 3 ml Q4H PRN Administration SOB &/or Wheezing Albuterol/Ipratropium 3 ml 07/11/19 14:30 07/12/19 14:49 Duoneb NEB 3 ml [id number] DA Administration Famotidine 20 mg 07/10/19 09:00 07/12/19 08:40 Pepcid PO 20 mg BID DA Administration Furosemide 40 mg 07/12/19 17:30 07/12/19 17:35 Lasix SLOW IVP 07/12/19 19:30 40 mg NOW DA Administration Piperacillin Sod/Tazobactam 100 mls @ 200 mls/hr 07/09/19 22:00 07/12/19 16: 25 Sod 4.5 gm/ Sodium Chloride IVPB 100 mls Q8HR DA Administration Fluconazole/Sodium Chloride 100 mls @ 100 mls/hr 07/11/19 09:00 07/12/19 08: 41 200 mg/ Device IVPB 100 mls DAILY DA Administration Vancomycin HCl 750 mg/ Sodium 250 mls @ 250 mls/hr 07/11/19 09:00 07/12/19 08 :40 Chloride IVPB 250 mls 0900,2100 DA Administration Lidocaine 1 patch 07/10/19 20:50 07/10/19 22:48 Lidoderm 5% Patch TD 1 patch DAILY PRN Administration Pain Morphine Sulfate 2 mg 07/09/19 22:39 07/10/19 15:58 Morphine SLOW IVP 2 mg Q4H PRN Administration Moderate to Severe Pain (4-10) Nystatin 0 gm 07/11/19 21:00 07/12/19 08:42 Mycostatin Powder TOP 1 applic BID DA Administration Sodium Chloride 10 ml 07/11/19 21:00 07/12/19 08:43 Flush - Normal Saline IVF 10 ml Q12HR DA Administration - Exam ill appearing General - other findings: cachetic Eye: PERRL, anicteric sclera ENT: normocephalic atraumatic, no oropharyngeal lesions Neck: supple, symmetric, no JVD, no thyromegaly Heart: RRR, no gallops, no rubs Respiratory: no rales, no ronchi, wheezes Respiratory - other findings: diminished in bases Gastrointestinal: soft, non-tender, non-distended, normal bowel sounds Extremeties - other findings: R AKA, L BKA Skin: normal turgor Neurological: CN's grossly intact, no new deficit Musculoskeletal: generalized weakness, diffuse muscle atrophy Psychiatric: oriented to person, oriented to place, lethargic Hosp A/P (1) Acute CHF Code(s): I50.9 - HEART FAILURE, UNSPECIFIED Status: Acute Qualifiers: Heart failure type: unspecified Qualified Code(s): I50.9 - Heart failure, unspecified Plan: Await Echo results, continue diuresis, daily weight, I/O's (2) Acute respiratory failure with hypoxia Code(s): J96.01 - ACUTE RESPIRATORY FAILURE WITH HYPOXIA Status: Acute Plan: Improved with diuresis, continue O2 supplementation (3) UTI (urinary tract infection) Status: Acute Plan: Delilah albicans, continue Fluconazole (4) Wound infection Code(s): T14.8XXA - OTHER INJURY OF UNSPECIFIED BODY REGION, INITIAL ENCOUNTER; L08.9 - LOCAL INFECTION OF THE SKIN AND SUBCUTANEOUS TISSUE, UNSP Status: Acute Plan: Continue Vancomycin/Zosyn, local WCT (5) Severe protein-calorie malnutrition Code(s): E43 - UNSPECIFIED SEVERE PROTEIN-CALORIE MALNUTRITION Status: Chronic Plan: Regular diet, add Ensure High Protein TID (6) Status post below knee amputation of right lower extremity Code(s): Z89.511 - ACQUIRED ABSENCE OF RIGHT LEG BELOW KNEE Status: Acute Plan: s/p R AKA on 06/04/19 (7) Sepsis Code(s): A41.9 - SEPSIS, UNSPECIFIED ORGANISM Status: Acute Plan: Resolving, continue current Vanc/Zosyn - Plan continue antibiotics, PT/OT, social media project manager Consults: Palliative Care Continue supportive mgmt continue Vanc/Zosyn WCT for local care Continue Fluconazole
[2019-07-12] MEDS: Budesonide 0.25 MG/2 ML NEB NEB SCH (18:32)
[2019-07-12] MEDS: Gabapentin 300 MG CAP PO SCH (21:55)
[2019-07-13 06:20] LABS: #Eosinphils 0.1 thou/uL (0.0-0.7); #Lymphocytes 1.2 thou/uL (1.20-3.40); #Monocytes 1.3 thou/uL (0.11-0.59); #Neutrophils 10.3 thou/uL (1.40-6.50); %Basophils 0.3 % (0.0-1.0); %Eosinophils 0.9 % (0.0-10.0); %Lymphocytes 9.6 % (21.0-51.0); %Neutrophils 79.2 % (42.0-75.0); Hemoglobin 9.1 g/dL (14.0-18.0); Mean Corpuscular Hemoglobin 25.5 pg (27.0-31.0); Mean Platelet Volume 7.1 fL (7.4-10.4); Platelet Count 535 thou/uL (130-400); RBC Distribution Width 20.1 % (11.5-14.5); Red Blood Cell (RBC) Count 3.58 mill/uL (4.70-6.10)
[2019-07-13 06:46] LABS: ALT (SGPT) 11 U/L (8-55); AST (SGOT) 27 U/L (5-34); Albumin 1.6 g/dL (3.4-4.8); Alkaline Phosphatase 174 U/L (40-150); Anion Gap 16 mmol/L (10-20); BUN (Urea Nitrogen) 6 mg/dL (8.4-25.7); Bilirubin, Total 0.5 mg/dL (0.2-1.2); Calc. Creatinine Clearance 78 mL/min (70-130); Calcium 7.8 mg/dL (7.8-10.44); Carbon Dioxide 21 mmol/L (23-31); Chloride 111 mmol/L (98-107); Estimated GFR-MDRD Greater than 90; Globulin 3.3 g/dL (2.4-3.5); Glucose 68 mg/dL (80-115); Potassium 3.1 mmol/L (3.5-5.1); Protein, Total 4.9 g/dL (5.8-8.1); Sodium 145 mmol/L (136-145)
[2019-07-13] MEDS: Budesonide 0.25 MG/2 ML NEB NEB SCH ×2 (07:02→18:54)
[2019-07-13] MEDS: Piperacillin/Tazobactam 4.5 GM in Sodium Chloride 0.9% 100 ML IVPB SCH ×3 (07:20→20:43)
[2019-07-13] MEDS: Lidocaine 5% Patch TD PRN (09:40)
[2019-07-13] MEDS: HYDROcodone/Acetaminophen 5/325 mg Tablet PO PRN (09:44)
[2019-07-13] MEDS: Gabapentin 300 MG CAP PO SCH ×3 (09:46→20:47)
[2019-07-13] MEDS: Famotidine 20 MG TAB PO SCH ×2 (09:46→20:47)
[2019-07-13] MEDS: Clopidogrel Bisulfate 75 MG TAB PO SCH (09:46)
[2019-07-13] MEDS: Furosemide 40 MG/4 ML VIAL SLOW IVP SCH (09:47)
[2019-07-13] MEDS: Vancomycin HCl 750 MG in Sodium Chloride 0.9% 250 ML 250 ML IVPB SCH ×2 (09:47→21:55)
[2019-07-13] MEDS: Aspirin Chewable 81 MG TAB PO SCH (09:47)
[2019-07-13] MEDS: Nystatin Powder 15 GM BOT TOP SCH ×2 (09:48→20:51)
--- NOTE | 2019-07-13 10:03 | CON ---
DATE OF CONSULTATION: 07/10/2019 REASON FOR CONSULTATION: Aspiration, consider the patient for endoscopic gastrostomy tube placement. The admitting history and physical is reviewed. HISTORY OF PRESENT ILLNESS: Mr. Jason Romeo is a very fragile-looking 64-year-old male with a complicated medical history. The patient has had a left dshld-[id number]-[id number] amputation 4 years ago. He also has had a right peaug-glu-sidl amputation a few months ago. Apparently, it got infected and was here a few weeks ago and was transferred to [facility] in [place] and subsequently [place]. The patient was there for a while and was given antibiotics knee and has had revision of this wound and debridement. The patient has had what appears to be aspiration per history. Plan was being made to do an endoscopic gastrostomy tube placement at [place]. However, they changed the mind in the last minute and wanted to give it one more chance. However whenever he eats or drinks, he starts coughing and choking. It appears he needs G-tube placement. The patient is not eating well over the last 4 days. He also has had marked weight loss. He has no abdominal pain, no nausea, no vomiting. No dysphagia or odynophagia. The patient was hospitalized at this time because of septic shock and was hypotensive and in the ICU for the 24 hours. With fluid resuscitation, his blood pressure came up. He was also noted to have some purulent discharge from the right knee wound. No relevant history. MEDICAL ILLNESSES: 1. Atrial fibrillation. 2. Anemia. 3. Coronary artery disease. 4. Congestive heart failure. 5. COPD. 6. Dyslipidemia. 7. Migraine. 8. Osteoporosis. 9. Peripheral vascular disease. 10. Chronic hyponatremia. 11. Nephrolithiasis. PAST SURGICAL HISTORY: 1. Status post right knee amputation. 2. Status post left below-knee amputation. 3. Coronary artery bypass graft. 4. Renal stent. 5. Multiple thoracentesis. 6. He also has a left femoral-popliteal bypass in the past. ALLERGIES: ALLERGIC TO LATEX AND SODIUM BICARBONATE. SOCIAL HISTORY: The patient denies any smoking or alcohol abuse or drug abuse. MEDICATIONS: List reviewed, which include, 1. DuoNeb. 2. Amiodarone. 3. Aspirin. 4. Atorvastatin. 5. Vitamin D3 . 6. Potassium chloride. FAMILY HISTORY: Family history of heart disease. REVIEW OF SYSTEMS: Remarkable for, 1. Generalized weakness, weight loss, fatigue. 2. Coughing, mucoid . 3. Right leg pain. PHYSICAL EXAMINATION: GENERAL: He is a very fragile-looking male, appears very comfortable. He is awake, alert, and communicative. VITAL SIGNS: Today, afebrile. Pulse is 86, blood pressure 109/99. HEENT: Conjunctivae clear. NECK: Supple. No adenitis or thyromegaly noted. CARDIOVASCULAR SYSTEM: First and second heart sounds heard. LUNGS: Coarse vesicular breath sounds and scattered rhonchi. ABDOMEN: Abdomen is soft. Abdomen is nontender. No organomegaly or masses. Bowel sounds are normal. EXTREMITIES: Left below-knee amputation and right above-knee amputation. LABORATORY DATA: From today; CBC; WBC 17,000, hemoglobin is 6, hematocrit 19.6, platelet count 598,000, polymorphs 85, lymphocytes 5, and monocytes 6. Admitting CBC, he was a little anemic, hemoglobin of 7, hematocrit 23.1. His chemistry panel sodium 135, potassium 3.2, chloride 107, bicarb 22, BUN is 6, creatinine 0.55, glucose 84, and calcium 7. Alkaline phosphatase 169. LFTs are normal, albumin is 1.5. CLINICAL IMPRESSION: This is a 64-year-old male with multiple medical problems, which include recent hospitalization at [facility] in [place] for infected right knee and has had surgery. The patient has loss of weight. He has history of aspiration and apparently he will benefit from a G-tube placement. I have spoken to Mr. Romeo and his about having an EGD and PEG tube placed and they agree. The patient has not taken any for a while. We will plan for EGD and PEG tube placement. I had a talk with the patient and his , and explained about the benefits and risks like bleeding, sepsis, perforation, etc. They fully understood the procedure and willing to have the procedure. We will plan for EGD and PEG tube placement tomorrow. Job ID: [id number]
[2019-07-13] MEDS: Fluconazole In NaCl,Iso-Osm 200 MG in Premix Bag 1 BAG IVPB SCH (10:09)
--- NOTE | 2019-07-13 11:44 | PDOC.HOSPP ---
- Subjective Encounter Date: 07/13/19 Encounter Time: 11:35 Subjective: f/u for acute hypoxic resp failure, CHF, aspiration PNA on current Zosyn/Vanc/ Fluconazole. Remains confused, lethargic and coughs with minimal po intake by spoon. - Objective Vital Signs & Weight: Vital Signs (12 hours) Temp Pulse Resp BP BP Pulse Ox 07/13/19 10:34 85 20 100 07/13/19 08:00 97.2 F L 95 18 110/66 96 07/13/19 07:06 80 16 100 07/13/19 07:02 80 16 100 07/13/19 04:00 98.1 F 84 20 94/50 L 100 07/13/19 02:51 89 20 100 07/13/19 00:00 94 20 96/52 L 100 Weight Admit Weight 106 lb Weight 105 lb 11.2 oz Most Recent Monitor Data Heart Rate from ECG 90 NIBP 111/62 NIBP BP-Mean 78 Respiration from ECG 23 SpO2 99 I&O: 07/12/19 07/13/19 07/14/19 06:59 06:59 06:59 Intake Total 450 480 250 Output Total 4175 400 3050 Balance -3725 80 -2800 Result Diagrams: 07/13/19 05:27 07/13/19 05:27 Additional Labs: Microbiology 07/09/19 15:31 Urine liao catheter Urine Culture - Final Presumptive Delilah albicans 07/09/19 15:30 Venous blood - Left Arm Blood Culture - Preliminary NO GROWTH AT 48 HOURS 07/09/19 15:30 Venous blood - Left Arm Blood Culture - Preliminary NO GROWTH AT 48 HOURS Laboratory Tests 07/08/19 07/09/19 07/09/19 04:00 04:50 20:42 WBC 18.4 H Hgb 7.0 L Plt Count 656 H Potassium B-Natriuretic Peptide 413.0 H 462.7 H Albumin Vancomycin Trough 07/10/19 07/11/19 07/11/19 05:10 06:00 06:00 WBC 17.0 H 14.5 H Hgb 6.0 L 8.2 L Plt Count 598 H 556 H Potassium B-Natriuretic Peptide Albumin Vancomycin Trough 15.4 07/11/19 07/12/19 07/12/19 13:34 05:27 05:27 WBC 14.8 H Hgb Plt Count Potassium 3.6 B-Natriuretic Peptide 1973.5 H Albumin 1.6 L Vancomycin Trough 07/13/19 05:27 WBC Hgb Plt Count Potassium B-Natriuretic Peptide Albumin 1.6 L Vancomycin Trough Radiology Reviewed by me: Yes (Echo - EF 20%, + diast dysfxn 2/3) EKG Reviewed by me: Yes (Tele - SR in 80's) ROS - Medication Medications: Active Medications Generic Name Dose Route Start Last Admin Trade Name Freq PRN Reason Stop Dose Admin Hydrocodone Bitart/Acetaminophen 2 tab 07/10/19 09:15 07/13/19 09:44 [place] 5/325 PO 2 tab Q4H PRN Administration Pain Albuterol/Ipratropium 3 ml 07/11/19 03:10 07/11/19 07:26 Duoneb NEB 3 ml Q4H PRN Administration SOB &/or Wheezing Albuterol/Ipratropium 3 ml 07/11/19 14:30 07/13/19 10:34 Duoneb NEB 3 ml [id number] DA Administration Aspirin 81 mg 07/13/19 09:00 07/13/19 09:47 Aspirin Chewable PO 81 mg DAILY DA Administration Budesonide 0.25 mg 07/12/19 18:30 07/13/19 07:02 Pulmicort Neb Solution NEB 0.25 mg BID-RT DA Administration Clopidogrel Bisulfate 75 mg 07/13/19 09:00 07/13/19 09:46 Plavix PO 75 mg DAILY DA Administration Famotidine 20 mg 07/10/19 09:00 07/13/19 09:46 Pepcid PO 20 mg BID DA Administration Furosemide 40 mg 07/13/19 09:00 07/13/19 09:47 Lasix SLOW IVP 40 mg DAILY DA Administration Gabapentin 300 mg 07/12/19 21:00 07/13/19 09:46 Neurontin PO 300 mg TID DA Administration Piperacillin Sod/Tazobactam 100 mls @ 200 mls/hr 07/09/19 22:00 07/13/19 07: 20 Sod 4.5 gm/ Sodium Chloride IVPB 100 mls Q8HR DA Administration Fluconazole/Sodium Chloride 100 mls @ 100 mls/hr 07/11/19 09:00 07/13/19 10: 09 200 mg/ Device IVPB 100 mls DAILY DA Administration Vancomycin HCl 750 mg/ Sodium 250 mls @ 250 mls/hr 07/11/19 09:00 07/13/19 09 :47 Chloride IVPB 250 mls 0900,2100 DA Administration Lidocaine 1 patch 07/10/19 20:50 07/10/19 22:48 Lidoderm 5% Patch TD 1 patch DAILY PRN Administration Pain Morphine Sulfate 2 mg 07/09/19 22:39 07/10/19 15:58 Morphine SLOW IVP 2 mg Q4H PRN Administration Moderate to Severe Pain (4-10) Nystatin 0 gm 07/11/19 21:00 07/13/19 09:48 Mycostatin Powder TOP 1 applic BID DA Administration Sodium Chloride 10 ml 07/11/19 21:00 07/13/19 09:47 Flush - Normal Saline IVF 10 ml Q12HR DA Administration - Exam ill appearing General - other findings: somnolent, does not open eyes or track Eye: PERRL, anicteric sclera ENT: normocephalic atraumatic, no oropharyngeal lesions, dry oral mucosa Neck: supple, symmetric, no JVD, no thyromegaly Heart: RRR, no gallops, no rubs Respiratory: rales, rhonchi, tachypneic, wheezes Gastrointestinal: soft, non-distended, normal bowel sounds, no palpable masses Extremities: no cyanosis Extremeties - other findings: R AKA, L BKA Musculoskeletal: diffuse muscle atrophy Psychiatric: not oriented, somnolent, lethargic Hosp A/P (1) Acute CHF Code(s): I50.9 - HEART FAILURE, UNSPECIFIED Status: Acute Qualifiers: Heart failure type: unspecified Qualified Code(s): I50.9 - Heart failure, unspecified Plan: EF 20-25% with Grade II/III diast dysfunction, appears end-stage, continue supportive mgmt, considering Palliative measures givens co-morbid conditions (2) Acute respiratory failure with hypoxia Code(s): J96.01 - ACUTE RESPIRATORY FAILURE WITH HYPOXIA Status: Acute Plan: Persistent hypoxia, continue pulmonary support, O2 supplementation, likely due to CHF/aspiration (3) UTI (urinary tract infection) Status: Acute Plan: Delilah spp on Fluconazole (4) Wound infection Code(s): T14.8XXA - OTHER INJURY OF UNSPECIFIED BODY REGION, INITIAL ENCOUNTER; L08.9 - LOCAL INFECTION OF THE SKIN AND SUBCUTANEOUS TISSUE, UNSP Status: Acute (5) Severe protein-calorie malnutrition Code(s): E43 - UNSPECIFIED SEVERE PROTEIN-CALORIE MALNUTRITION Status: Chronic Plan: Poor po intake due to aspiration, appears too high risk for even consideration of PEG tube, considering Palliative/hospice care (6) Status post below knee amputation of right lower extremity Code(s): Z89.511 - ACQUIRED ABSENCE OF RIGHT LEG BELOW KNEE Status: Acute (7) Sepsis Code(s): A41.9 - SEPSIS, UNSPECIFIED ORGANISM Status: Acute Plan: Secondary to above, continue Zosyn/Vanc/Fluconazole - Plan plan discussed w/ family, continue antibiotics, PT/OT, social media community manager, respiratory therapy Continue supportive mgmt continue Vanc/Zosyn WCT for local care Continue Fluconazole Palliative care consult/consider Hospice Poor prognosis given multitude of co-morbid conditions Updated pt's sister today
--- NOTE | 2019-07-13 11:56 | PDOC.FMACP ---
Advance Care Planning - Problem (1) Acute CHF Status: Acute Code(s): I50.9 - HEART FAILURE, UNSPECIFIED Qualifiers: Heart failure type: unspecified Qualified Code(s): I50.9 - Heart failure, unspecified (2) Acute respiratory failure with hypoxia Status: Acute Code(s): J96.01 - ACUTE RESPIRATORY FAILURE WITH HYPOXIA (3) UTI (urinary tract infection) Status: Acute (4) Wound infection Status: Acute Code(s): T14.8XXA - OTHER INJURY OF UNSPECIFIED BODY REGION, INITIAL ENCOUNTER; L08.9 - LOCAL INFECTION OF THE SKIN AND SUBCUTANEOUS TISSUE, UNSP (5) Severe protein-calorie malnutrition Status: Chronic Code(s): E43 - UNSPECIFIED SEVERE PROTEIN-CALORIE MALNUTRITION (6) Status post below knee amputation of right lower extremity Status: Acute Code(s): Z89.511 - ACQUIRED ABSENCE OF RIGHT LEG BELOW KNEE (7) Sepsis Status: Acute Code(s): A41.9 - SEPSIS, UNSPECIFIED ORGANISM - Note Participants: family Summary: Advanced Care Planning was discussed. The diagnosis, prognosis and goals of care were discussed. Appropriate forms and documentation to accomplish the goals of care were discussed. All questions were answered. The Palliative Care Team will be engaged to assist with completion of any outstanding forms that are needed. Discussed current situation with pt's sister Laquita. Overall pt continues persistent decline despite interventions. Unable to take po intake due to aspiration and PNA. Given the totality of and advanced degree of all co-morbid conditions would recommend Palliative/Hospice care. The sister will have pt's significant other come in today to discuss goals of care with attending. Poor overall prognosis reiterated to sister and the likelihood of any meaningful recovery is unlikely. Time Spent (mins): 25
--- NOTE | 2019-07-13 14:22 | PRG ---
DATE OF SERVICE: 07/12/2019 SUBJECTIVE: This is 64-year-old male seen by me 2 days ago for possible EGD and PEG tube placement. felt that he is too risky for the procedure because of his COPD and dyspnea. We recommend the patient stabilizes before we can bring back for EGD in particular. The clinical condition remain stable. He is very dyspneic. . PHYSICAL EXAMINATION: GENERAL: He is dyspneic at rest. VITAL SIGNS: He is afebrile. Pulse is 98, blood pressure 136/80. HEENT: Conjunctivae clear. CARDIOVASCULAR: First and second heart sound. LUNGS: Bilateral rhonchi and wheezing. ABDOMEN: Soft and nontender. LABORATORY DATA: WBC 14,800, hemoglobin 9.4, hematocrit 29.7, MCV 83.2. Chemistry panel; sodium is 140, potassium 3.6, chloride 111, bicarb 17, BUN is 6, albumin is 1.6, calcium 7.7. The liver enzymes are normal except for a mildly elevated alkaline phosphatase. RECOMMENDATION: Continue breathing treatment, nebulizer and once this process improves, we will plan for EGD and PEG tube placed. Job ID: [id number]
[2019-07-13 14:24] VITALS: BMI 17.6
--- NOTE | 2019-07-13 14:48 | PDOC.FMACP ---
Advance Care Planning - Problem (1) Acute CHF Status: Acute Code(s): I50.9 - HEART FAILURE, UNSPECIFIED Qualifiers: Heart failure type: unspecified Qualified Code(s): I50.9 - Heart failure, unspecified (2) Acute respiratory failure with hypoxia Status: Acute Code(s): J96.01 - ACUTE RESPIRATORY FAILURE WITH HYPOXIA (3) UTI (urinary tract infection) Status: Acute (4) Wound infection Status: Acute Code(s): T14.8XXA - OTHER INJURY OF UNSPECIFIED BODY REGION, INITIAL ENCOUNTER; L08.9 - LOCAL INFECTION OF THE SKIN AND SUBCUTANEOUS TISSUE, UNSP (5) Severe protein-calorie malnutrition Status: Chronic Code(s): E43 - UNSPECIFIED SEVERE PROTEIN-CALORIE MALNUTRITION (6) Status post below knee amputation of right lower extremity Status: Acute Code(s): Z89.511 - ACQUIRED ABSENCE OF RIGHT LEG BELOW KNEE (7) Sepsis Status: Acute Code(s): A41.9 - SEPSIS, UNSPECIFIED ORGANISM - Note Participants: patient, family, surrogate decision-maker Summary: Advanced Care Planning was discussed. The diagnosis, prognosis and goals of care were discussed. Appropriate forms and documentation to accomplish the goals of care were discussed. All questions were answered. The Palliative Care Team will be engaged to assist with completion of any outstanding forms that are needed. Met with MPOA and pt's sister with the pt this pm. Discussed continued clinical decline despite aggressive therapy. Co-morbid status continues to decline at accelerated pace and trajectory of condition is downward. Family agrees that pt is declining and now wishing to pursue hospice/comfort care. Will consult Hospice regarding coordination for outpt vs inpt services. Pt verbalizes understanding. Code status will be addressed further after discussing with hospice. Time Spent (mins): 35
--- NOTE | 2019-07-13 16:36 | PDOC.PALCO ---
Palliative Care Consult - Consult Details Requesting Physician: Dr Salgado Reason for Consult: goals of care Family Members Present: Romana, Sister - Pertinent HPI 64 year old male sent from [facility] inpatient rehab secondary to hypotension. History of bilateral lower extremity amputation adn recent admission May 2019 to [facility] for respiratory failure, pneumonia, and COPD exacerbation. states he has been in the hospital here, [facility] rehab, or [facility] in [place] and [place] since April [address] Salgado consulted for follow up with his conversation relating to Hospice and goals for patient as he has continued decline. - Pertinent PMH Atrial Fib, Anemia, CAD, CHF, COPD, osteoporosis, PVD, nephroliathiasis, right lower extremity above knee amputation, left lower extremity below the knee amputation, coronary artery bypass graft. - Social History Smoking Status: Never smoker Smoking: no tobacco exposure Alcohol Use: none Drug Use History: none Living Situation: - Medications MAR Reviewed: Yes - Allergies Allergies/Adverse Reactions: Allergies Allergy/AdvReac Type Severity Reaction Status Date / Time adhesive Allergy Verified 06/04/19 10:28 - Subjective Sleeping but arousable, chronically ill appearing. Significant weakness. Denies any specific complaints with the exception of difficulty swallowing. and sister at bedside, discussed with patient goals for his life as he continues with chronic disease trajectory. ROS: all negative with with exception of dysphagia - Objective Vital Signs: Vital Signs - Most Recent Temp Pulse Resp BP Pulse Ox 97.2 F L 88 20 110/66 100 07/13/19 08:00 07/13/19 14:35 07/13/19 14:35 07/13/19 08:00 07/13/19 14:35 Palliative Performance Scale: 30 - Physical Exam Constitutional: confusion HEENT: PERRLA, moist MMs, EOMI Deviation from normal: Labored respirations with minimal exertion, faint expiratory wheeze Cardiovascular: RRR, no significant murmur Gastrointestinal: soft, non-tender, positive bowel sounds Musculoskeletal: no edema Deviation from normal: bilateral lower extremity amputation Deviation from normal: lethargic Deviation from normal: fair turgor, brusing in various stages of healing - Problem List (1) Palliative care encounter Code(s): Z51.5 - ENCOUNTER FOR PALLIATIVE CARE Current Visit: Yes Status: Acute (2) Severe protein-calorie malnutrition Code(s): E43 - UNSPECIFIED SEVERE PROTEIN-CALORIE MALNUTRITION Current Visit: Yes Status: Chronic (3) Acute CHF Code(s): I50.9 - HEART FAILURE, UNSPECIFIED Current Visit: No Status: Acute Qualifiers: Heart failure type: unspecified Qualified Code(s): I50.9 - Heart failure, unspecified (4) COPD exacerbation Code(s): J44.1 - CHRONIC OBSTRUCTIVE PULMONARY DISEASE W (ACUTE) EXACERBATION Current Visit: No Status: Acute - Plan/Recommendations Plan: Visited with family at length. *Brittanyretta to reach out to [facility] and assess if patient is appropriate for inpatient hospice. *If patient is not appropriate for inpatient hospice then the family and patient wish to be discharged to a nursing facility with comfort measures and a PT consult to assist with wheelchair transfers and use to optimize patient independence. *Patient not able to return to home environment secondary to lack of caregivers during the day. [60] minutes spent on this encounter with >50% of the time in counseling and coordination of care. Thank you for this very appropriate consult.
--- NOTE | 2019-07-13 16:50 | PDOC.CTH ---
Cardiology Progress Note - Subjective He continues to decline. Cannot tolerate PO. His edema has improved. - Objective Vital Signs Temp Pulse Resp BP Pulse Ox 07/13/19 14:35 88 20 100 07/13/19 10:34 85 20 100 07/13/19 08:00 97.2 F L 95 18 110/66 96 07/13/19 07:06 80 16 100 07/13/19 07:02 80 16 100 Admit Weight 105 lb 9.623 oz Weight 105 lb 11.2 oz 07/12/19 07/13/19 07/14/19 06:59 06:59 06:59 Intake Total 450 480 250 Output Total 4175 400 5150 Balance -3725 80 -4900 - Physical Examination General/Neuro: alert & oriented x3, NAD Neck: no JVD present Lungs: CTA, unlabored respirations Heart: RRR Abdomen: NT/ND Extremities: + edema B (1+) - Telemetry Telemetry Rhythm: NSR - Labs Result Diagrams: 07/13/19 05:27 07/13/19 05:27 Troponin/CKMB Troponin I 0.013 ng/mL (< 0.028) 07/11/19 17:51 - Assessment/Plan 1. Acute on chronic systolic heart failure. 2. CAD stable, no ACS 3. Severe anemia, improved after PRBC's. 4. Sepsis. 5. Wound vac on recent amputation stump 6. Severe LV dysfunction EF at 20-25% PLAN: - Continue IV diuresis but will cut back to daily doses. - Abx per primary team. - Palliative care on board. Family considering Hospice/Palliative care.
[2019-07-13 21:24] LABS: Vancomycin, Trough 22.4 ug/mL
[2019-07-14] MEDS: HYDROcodone/Acetaminophen 5/325 mg Tablet PO PRN ×3 (05:10→19:57)
[2019-07-14] MEDS: Piperacillin/Tazobactam 4.5 GM in Sodium Chloride 0.9% 100 ML IVPB SCH ×3 (05:11→21:28)
[2019-07-14 05:48] LABS: ALT (SGPT) 11 U/L (8-55); AST (SGOT) 33 U/L (5-34); Albumin 1.5 g/dL (3.4-4.8); Alkaline Phosphatase 184 U/L (40-150); Anion Gap 11 mmol/L (10-20); BUN (Urea Nitrogen) 5 mg/dL (8.4-25.7); Bilirubin, Total 0.4 mg/dL (0.2-1.2); Calc. Creatinine Clearance 78 mL/min (70-130); Calcium 7.5 mg/dL (7.8-10.44); Carbon Dioxide 25 mmol/L (23-31); Chloride 112 mmol/L (98-107); Estimated GFR-MDRD Greater than 90; Globulin 3.6 g/dL (2.4-3.5); Glucose 78 mg/dL (80-115); Potassium 3.1 mmol/L (3.5-5.1); Protein, Total 5.1 g/dL (5.8-8.1); Sodium 145 mmol/L (136-145)
[2019-07-14 07:00] LABS: #Eosinphils 0.1 thou/uL (0.0-0.7); #Lymphocytes 1.2 thou/uL (1.20-3.40); #Monocytes 1.3 thou/uL (0.11-0.59); #Neutrophils 11.5 thou/uL (1.40-6.50); %Eosinophils 0.6 % (0.0-10.0); %Lymphocytes 8.7 % (21.0-51.0); %Neutrophils 81.6 % (42.0-75.0); Hemoglobin 8.8 g/dL (14.0-18.0); Mean Corpuscular HGB CONC 31.8 g/dL (32.0-36.0); Mean Corpuscular Hemoglobin 26.2 pg (27.0-31.0); Mean Corpuscular Volume 82.3 fL (78.0-98.0); Mean Platelet Volume 7.3 fL (7.4-10.4); Platelet Count 456 thou/uL (130-400); Red Blood Cell (RBC) Count 3.36 mill/uL (4.70-6.10); White Blood Cell (WBC) Count 14.1 thou/uL (4.8-10.8)
[2019-07-14] MEDS: Budesonide 0.25 MG/2 ML NEB NEB SCH ×2 (07:39→19:31)
[2019-07-14] MEDS: Famotidine 20 MG TAB PO SCH ×2 (10:26→21:26)
[2019-07-14] MEDS: Aspirin Chewable 81 MG TAB PO SCH (10:26)
[2019-07-14] MEDS: Gabapentin 300 MG CAP PO SCH ×3 (10:27→21:26)
[2019-07-14] MEDS: Vancomycin HCl 500 MG in Sodium Chloride 0.9% 100 ML IVPB SCH ×2 (10:34→21:27)
[2019-07-14] MEDS: Furosemide 40 MG/4 ML VIAL SLOW IVP SCH (10:39)
[2019-07-14] MEDS: Fluconazole In NaCl,Iso-Osm 200 MG in Premix Bag 1 BAG IVPB SCH (10:44)
[2019-07-14] MEDS: Nystatin Powder 15 GM BOT TOP SCH ×2 (10:58→21:27)
[2019-07-14] MEDS: Clopidogrel Bisulfate 75 MG TAB PO SCH (11:01)
--- NOTE | 2019-07-14 18:42 | PDOC.CTH ---
Cardiology Progress Note - Subjective Family has decided for palliative care. - Objective Vital Signs Temp Pulse Resp BP BP BP Pulse Ox 07/14/19 15:37 97.7 F 86 14 78/45 L 96 07/14/19 14:27 86 16 100 07/14/19 11:37 97.6 F 78 17 94/53 L 95 07/14/19 11:10 88 18 96 07/14/19 10:39 93 L 07/14/19 08:28 107/69 07/14/19 07:58 98.7 F 81 13 91/55 L 93 L 07/14/19 07:42 73 16 100 07/14/19 07:39 73 16 100 Admit Weight 105 lb 9.623 oz Weight 105 lb 11.2 oz 07/13/19 07/14/19 07/15/19 06:59 06:59 06:59 Intake Total 480 1000 Output Total 400 5650 Balance 80 -4650 - Physical Examination General/Neuro: NAD Neck: no JVD present Lungs: unlabored respirations Heart: RRR Abdomen: NT/ND Extremities: other: (Bilat amputations.) - Telemetry Telemetry Rhythm: NSR - Labs Result Diagrams: 07/14/19 06:34 07/14/19 05:06 Troponin/CKMB Troponin I 0.013 ng/mL (< 0.028) 07/11/19 17:51 - Assessment/Plan 1. Acute on chronic systolic heart failure. 2. CAD stable, no ACS 3. Severe anemia, improved after PRBC's. 4. Sepsis. 5. Wound vac on recent amputation stump 6. Severe LV dysfunction EF at 20-25% PLAN: - Continue current IV daily lasix dose. - Abx per primary team. - Palliative/hospice care per family wishes. - Will sign out. Please call with any questions.
--- NOTE | 2019-07-14 20:24 | PDOC.HOSPP ---
- Subjective Encounter Date: 07/14/19 Encounter Time: 19:50 Subjective: f/u for aspiration pneumonia, CHF, severe prot malnutrition on Vanc/Zosyn/ Fluconazole. Sleeping intermittently throughout the day, coughing consistently after taking any po intake. Family met with hospice to consider inpt vs outpt hospice - Objective Vital Signs & Weight: Vital Signs (12 hours) Temp Pulse Resp BP BP BP Pulse Ox 07/14/19 19:35 99.5 F 85 18 106/59 L 100 07/14/19 19:27 81 16 100 07/14/19 15:37 97.7 F 86 14 78/45 L 96 07/14/19 14:27 86 16 100 07/14/19 11:37 97.6 F 78 17 94/53 L 95 07/14/19 11:10 88 18 96 07/14/19 10:39 93 L 07/14/19 08:28 107/69 Weight Admit Weight 105 lb 9.623 oz Weight 105 lb 11.2 oz Most Recent Monitor Data Heart Rate from ECG 90 NIBP 111/62 NIBP BP-Mean 78 Respiration from ECG 23 SpO2 99 I&O: 07/13/19 07/14/19 07/15/19 06:59 06:59 06:59 Intake Total 480 1000 680 Output Total 400 5650 375 Balance 80 -4650 305 Result Diagrams: 07/14/19 06:34 07/14/19 05:06 Additional Labs: Microbiology 07/09/19 15:31 Urine liao catheter Urine Culture - Final Presumptive Delilah albicans 07/09/19 15:30 Venous blood - Left Arm Blood Culture - Preliminary NO GROWTH AT 48 HOURS 07/09/19 15:30 Venous blood - Left Arm Blood Culture - Preliminary NO GROWTH AT 48 HOURS Laboratory Tests 07/08/19 07/09/19 07/09/19 04:00 04:50 20:42 WBC 18.4 H Hgb 7.0 L Plt Count 656 H Potassium B-Natriuretic Peptide 413.0 H 462.7 H Albumin Vancomycin Trough 07/10/19 07/11/19 07/11/19 05:10 06:00 06:00 WBC 17.0 H 14.5 H Hgb 6.0 L 8.2 L Plt Count 598 H 556 H Potassium B-Natriuretic Peptide Albumin Vancomycin Trough 15.4 07/11/19 07/12/1919 13:34 05:27 05:27 WBC 14.8 H Hgb Plt Count Potassium 3.6 B-Natriuretic Peptide 1973.5 H Albumin 1.6 L Vancomycin Trough 07/13/19 05:27 WBC Hgb Plt Count Potassium B-Natriuretic Peptide Albumin 1.6 L Vancomycin Trough EKG Reviewed by me: Yes (Tele - SR) ROS - Medication Medications: Active Medications Generic Name Dose Route Start Last Admin Trade Name Freq PRN Reason Stop Dose Admin Hydrocodone Bitart/Acetaminophen 2 tab 07/10/19 09:15 07/14/19 19:57 [place] 5/325 PO 2 tab Q4H PRN Administration Pain Albuterol/Ipratropium 3 ml 07/11/19 03:10 07/11/19 07:26 Duoneb NEB 3 ml Q4H PRN Administration SOB &/or Wheezing Albuterol/Ipratropium 3 ml 07/11/19 14:30 07/14/19 19:27 Duoneb NEB 3 ml [id number] DA Administration Aspirin 81 mg 07/13/19 09:00 07/14/19 10:26 Aspirin Chewable PO 81 mg DAILY DA Administration Budesonide 0.25 mg 07/12/19 18:30 07/14/19 19:31 Pulmicort Neb Solution NEB 0.25 mg BID-RT DA Administration Clopidogrel Bisulfate 75 mg 07/13/19 09:00 07/14/19 11:01 Plavix PO 75 mg DAILY DA Administration Famotidine 20 mg 07/10/19 09:00 07/14/19 10:26 Pepcid PO 20 mg BID DA Administration Furosemide 40 mg 07/13/19 09:00 07/14/19 10:39 Lasix SLOW IVP Not Given DAILY DA Gabapentin 300 mg 07/12/19 21:00 07/14/19 15:06 Neurontin PO 300 mg TID DA Administration Piperacillin Sod/Tazobactam 100 mls @ 200 mls/hr 07/09/19 22:00 07/14/19 15: 06 Sod 4.5 gm/ Sodium Chloride IVPB 100 mls Q8HR DA Administration Vancomycin HCl 500 mg/ Sodium 100 mls @ 100 mls/hr 07/14/19 09:00 07/14/19 10 :34 Chloride IVPB 100 mls Q12HR DA Administration Lidocaine 1 patch 07/10/19 20:50 07/13/19 09:40 Lidoderm 5% Patch TD 1 patch DAILY PRN Administration Pain Morphine Sulfate 2 mg 07/09/19 22:39 07/10/19 15:58 Morphine SLOW IVP 2 mg Q4H PRN Administration Moderate to Severe Pain (4-10) Nystatin 0 gm 07/11/19 21:00 07/14/19 10:58 Mycostatin Powder TOP 1 applic BID DA Administration Sodium Chloride 10 ml 07/11/19 21:00 07/14/19 10:34 Flush - Normal Saline IVF 10 ml Q12HR DA Administration Sodium Chloride 10 ml 07/11/19 14:02 07/13/19 14:45 Flush - Normal Saline IVF 10 ml PRN PRN Administration Saline Flush - Exam ill appearing General - other findings: + pallor Eye: PERRL, anicteric sclera ENT: normocephalic atraumatic, no oropharyngeal lesions Neck: supple, symmetric, no JVD, no thyromegaly Heart: RRR, no gallops, no rubs Respiratory: tachypneic Respiratory - other findings: diminished bilat, + rhonchi Gastrointestinal: soft, non-tender, non-distended, normal bowel sounds Extremities: no edema Extremeties - other findings: Bilat LE amputations Neurological: no new deficit Musculoskeletal: generalized weakness, diffuse muscle atrophy Psychiatric: oriented to person Hosp A/P (1) Acute CHF Code(s): I50.9 - HEART FAILURE, UNSPECIFIED Status: Acute Qualifiers: Heart failure type: unspecified Qualified Code(s): I50.9 - Heart failure, unspecified Plan: Continue Lasix IV, daily weight, end-stage process with EF 20% (2) Acute respiratory failure with hypoxia Code(s): J96.01 - ACUTE RESPIRATORY FAILURE WITH HYPOXIA Status: Acute Plan: Persistent, likely consistent aspiration occurring (3) UTI (urinary tract infection) Status: Acute Plan: Delilah spp, continue Fluconazole (4) Wound infection Code(s): T14.8XXA - OTHER INJURY OF UNSPECIFIED BODY REGION, INITIAL ENCOUNTER; L08.9 - LOCAL INFECTION OF THE SKIN AND SUBCUTANEOUS TISSUE, UNSP Status: Acute (5) Severe protein-calorie malnutrition Code(s): E43 - UNSPECIFIED SEVERE PROTEIN-CALORIE MALNUTRITION Status: Chronic Plan: Persistent decline, end-stage process (6) Status post below knee amputation of right lower extremity Code(s): Z89.511 - ACQUIRED ABSENCE OF RIGHT LEG BELOW KNEE Status: Acute (7) Sepsis Code(s): A41.9 - SEPSIS, UNSPECIFIED ORGANISM Status: Acute - Plan plan discussed w/ family, continue antibiotics, mental health social worker, speech therapy , respiratory therapy Consults: Hospice, Palliative Care Continue supportive mgmt continue Vanc/Zosyn WCT for local care Continue Fluconazole Palliative care consult/Hospice options being considered Poor prognosis given multitude of co-morbid conditions Updated pt's sister today Supportive mgmt
[2019-07-15] MEDS: Piperacillin/Tazobactam 4.5 GM in Sodium Chloride 0.9% 100 ML IVPB SCH ×2 (05:56→13:45)
[2019-07-15] MEDS: Budesonide 0.25 MG/2 ML NEB NEB SCH (07:13)
[2019-07-15] MEDS ORDERED: Fluconazole 100 MG TAB PO SCH (09:00)
[2019-07-15] MEDS: Aspirin Chewable 81 MG TAB PO SCH (09:32)
--- NOTE | 2019-07-15 09:34 | PDOC.PALPN ---
Palliative Progress Note - Subjective Awake, alert. Slight increase in confusion and continued weakness. Romana at bedside and family friend - Objective Vital Signs: Vital Signs - Most Recent Temp Pulse Resp BP Pulse Ox 97.5 F L 94 16 130/63 90 L 07/15/19 04:00 07/15/19 07:13 07/15/19 07:13 07/15/19 04:00 07/15/19 07:14 - Physical Exam Constitutional: confusion HEENT: moist MMs, EOMI Deviation from normal: mild shortness of breath, tachyphnea Cardiovascular: RRR Gastrointestinal: soft, non-tender Psychiatric: normal affect Deviation from normal: Mild confusion Deviation from normal: Poor turgor, fragile thin skin - Assessment (1) Palliative care encounter Code(s): Z51.5 - ENCOUNTER FOR PALLIATIVE CARE Current Visit: Yes Status: Acute (2) Severe protein-calorie malnutrition Code(s): E43 - UNSPECIFIED SEVERE PROTEIN-CALORIE MALNUTRITION Current Visit: Yes Status: Chronic (3) Acute CHF Code(s): I50.9 - HEART FAILURE, UNSPECIFIED Current Visit: Yes Status: Acute Qualifiers: Heart failure type: unspecified Qualified Code(s): I50.9 - Heart failure, unspecified (4) COPD exacerbation Code(s): J44.1 - CHRONIC OBSTRUCTIVE PULMONARY DISEASE W (ACUTE) EXACERBATION Current Visit: Yes Status: Acute - Plan Plan: Family meeting. Discussion on symptoms of chronic disease processes and disease trajectory. Yesterday patient asked to have Hospice placement put on hold, he did not remember this today. He asked his Romana and son Tyshawn to make decisions as he notices he is having episodes of confusion and poor short term memory recall at times. *Family to meet this morning and confirm Hospice *Tamar BOLAND notified of patient desire to enter to hospice care We will continue to support patient and family as they transition to hospice care. [60] minutes spent on this encounter with >50% of the time in counseling and coordination of care.
[2019-07-15] MEDS: Famotidine 20 MG TAB PO SCH (09:35)
[2019-07-15] MEDS: Gabapentin 300 MG CAP PO SCH ×2 (09:35→15:31)
[2019-07-15] MEDS: Nystatin Powder 15 GM BOT TOP SCH (09:36)
[2019-07-15] MEDS: Furosemide 40 MG/4 ML VIAL SLOW IVP SCH (09:36)
[2019-07-15] MEDS: HYDROcodone/Acetaminophen 5/325 mg Tablet PO PRN ×2 (09:37→15:33)
[2019-07-15] MEDS: Vancomycin HCl 500 MG in Sodium Chloride 0.9% 100 ML IVPB SCH (09:43)
[2019-07-15] MEDS: Clopidogrel Bisulfate 75 MG TAB PO SCH (09:44)
--- NOTE | 2019-07-15 13:15 | PDOC.HOSPP ---
- Subjective Encounter Date: 07/15/19 Encounter Time: 07:45 Subjective: Patient seen and examined. No overnight events, per pt did not have good night - Objective Vital Signs & Weight: Vital Signs (12 hours) Temp Pulse Resp BP Pulse Ox 07/15/19 10:27 93 16 93 L 07/15/19 07:14 90 L 07/15/19 07:13 94 16 90 L 07/15/19 07:11 94 16 90 L 07/15/19 04:00 97.5 F L 91 14 130/63 93 L Weight Admit Weight 105 lb 9.623 oz Weight 105 lb 11.2 oz Most Recent Monitor Data Heart Rate from ECG 90 NIBP 111/62 NIBP BP-Mean 78 Respiration from ECG 23 SpO2 99 I&O: 07/14/19 07/15/19 07/16/19 06:59 06:59 06:59 Intake Total 1000 920 Output Total 5650 700 Balance -4650 220 Result Diagrams: 07/14/19 06:34 07/14/19 05:06 EKG Reviewed by me: Yes ROS - Review of Systems ROS unobtainable: due to mental status - Medication Medications: Active Medications Generic Name Dose Route Start Last Admin Trade Name Freq PRN Reason Stop Dose Admin Hydrocodone Bitart/Acetaminophen 2 tab 07/10/19 09:15 07/15/19 09:37 [place] 5/325 PO 2 tab Q4H PRN Administration Pain Albuterol/Ipratropium 3 ml 07/11/19 03:10 07/11/19 07:26 Duoneb NEB 3 ml Q4H PRN Administration SOB &/or Wheezing Albuterol/Ipratropium 3 ml 07/11/19 14:30 07/15/19 10:27 Duoneb NEB 3 ml [id number] DA Administration Aspirin 81 mg 07/13/19 09:00 07/15/19 09:32 Aspirin Chewable PO 81 mg DAILY DA Administration Budesonide 0.25 mg 07/12/19 18:30 07/15/19 07:13 Pulmicort Neb Solution NEB 0.25 mg BID-RT DA Administration Clopidogrel Bisulfate 75 mg 07/13/19 09:00 07/15/19 09:44 Plavix PO 75 mg DAILY DA Administration Famotidine 20 mg 07/10/19 09:00 07/15/19 09:35 Pepcid PO 20 mg BID DA Administration Fluconazole 200 mg 07/15/19 09:00 07/15/19 09:34 Diflucan PO 200 mg DAILY DA Administration Furosemide 40 mg 07/13/19 09:00 07/15/19 09:36 Lasix SLOW IVP 40 mg DAILY DA Administration Gabapentin 300 mg 07/12/19 21:00 07/15/19 09:35 Neurontin PO 300 mg TID DA Administration Piperacillin Sod/Tazobactam 100 mls @ 200 mls/hr 07/09/19 22:00 07/15/19 05: 56 Sod 4.5 gm/ Sodium Chloride IVPB 100 mls Q8HR DA Administration Vancomycin HCl 500 mg/ Sodium 100 mls @ 100 mls/hr 07/14/19 09:00 07/15/19 09 :43 Chloride IVPB 100 mls Q12HR DA Administration Lidocaine 1 patch 07/10/19 20:50 07/13/19 09:40 Lidoderm 5% Patch TD 1 patch DAILY PRN Administration Pain Morphine Sulfate 2 mg 07/09/19 22:39 07/10/19 15:58 Morphine SLOW IVP 2 mg Q4H PRN Administration Moderate to Severe Pain (4-10) Nystatin 0 gm 07/11/19 21:00 07/15/19 09:36 Mycostatin Powder TOP 1 applic BID DA Administration Sodium Chloride 10 ml 07/11/19 21:00 07/15/19 09:43 Flush - Normal Saline IVF 10 ml Q12HR DA Administration Sodium Chloride 10 ml 07/11/19 14:02 07/13/19 14:45 Flush - Normal Saline IVF 10 ml PRN PRN Administration Saline Flush - Exam ill appearing Eye: PERRL, anicteric sclera ENT: normocephalic atraumatic, no oropharyngeal lesions Neck: supple Heart: RRR, no gallops Respiratory: rales, rhonchi, wheezes Gastrointestinal: soft, non-tender, non-distended Neurological: no focal deficits Psychiatric: not oriented Hosp A/P (1) Acute CHF Code(s): I50.9 - HEART FAILURE, UNSPECIFIED Status: Acute Qualifiers: Heart failure type: combined systolic and diastolic Qualified Code(s): I50.41 - Acute combined systolic (congestive) and diastolic (congestive) heart failure (2) Acute respiratory failure with hypoxia Code(s): J96.01 - ACUTE RESPIRATORY FAILURE WITH HYPOXIA Status: Acute (3) COPD exacerbation Code(s): J44.1 - CHRONIC OBSTRUCTIVE PULMONARY DISEASE W (ACUTE) EXACERBATION Status: Acute (4) Sepsis Code(s): A41.9 - SEPSIS, UNSPECIFIED ORGANISM Status: Acute (5) Status post below knee amputation of right lower extremity Code(s): Z89.511 - ACQUIRED ABSENCE OF RIGHT LEG BELOW KNEE Status: Chronic (6) UTI (urinary tract infection) Status: Acute (7) Volume overload Code(s): E87.70 - FLUID OVERLOAD, UNSPECIFIED Status: Acute (8) Wound infection Code(s): T14.8XXA - OTHER INJURY OF UNSPECIFIED BODY REGION, INITIAL ENCOUNTER; L08.9 - LOCAL INFECTION OF THE SKIN AND SUBCUTANEOUS TISSUE, UNSP Status: Acute (9) CAD (coronary artery disease) Code(s): I25.10 - ATHSCL HEART DISEASE OF [place] CORONARY ARTERY W/O ANG PCTRS Status: Chronic (10) Peripheral vascular disease Code(s): I73.9 - PERIPHERAL VASCULAR DISEASE, UNSPECIFIED Status: Chronic (11) Severe protein-calorie malnutrition Code(s): E43 - UNSPECIFIED SEVERE PROTEIN-CALORIE MALNUTRITION Status: Chronic - Plan old records reviewed/req, plan discussed w/ family, child protective services social worker pt has been accepted for hospice care but family needs to make final decision medication reviewed as above symptomatic treatment if hospice, then will transfer to medical or hospice facility and provide comfort care only
--- NOTE | 2019-07-15 15:10 | DIS ---
DATE OF ADMISSION: 07/09/2019 DATE OF DISCHARGE: 07/15/2019 DISCHARGE DISPOSITION: Inpatient hospice. PRIMARY DISCHARGE DIAGNOSES: 1. Septic shock, resolved. 2. Erucy-od-rxaspbd systolic and diastolic heart failure. 3. Acute respiratory failure with hypoxia. 4. Chronic obstructive pulmonary disease exacerbation. 5. Urinary tract infection. 6. Wound infection. 7. Below-knee amputation site wound infection. 8. Severe protein-calorie malnutrition. CONTRIBUTING DIAGNOSES: 1. Peripheral vascular disease. 2. Coronary artery disease. 3. Chronic systolic and diastolic heart failure. 4. Chronic obstructive pulmonary disease. PRIMARY PROCEDURE/OPERATION: None. RADIOLOGICAL INVESTIGATION: Chest x-ray, echocardiography. SIGNIFICANT LABORATORY DATA: Hemoglobin 8.8. INR 1.3, creatinine 0.66, sodium 145, potassium 3.1. Urinalysis suggestive of UTI. Urine culture grew Delilah. Blood culture negative. DISCHARGE MEDICATIONS: The patient will be kept on comfort care medication only. CONTRAINDICATION: The patient is not on any medication because the patient is planned for inpatient hospice for comfort care only. CODE STATUS: DNR. INPATIENT [employer]ANT LINE COOK: Cardiology group, Pulmonary group were following while in hospital. GI group was also consulted while in hospital. Palliative Care Team was consulted. Cardiovascular surgeon was also following while in hospital. TEST RESULT PENDING ON DISCHARGE: None. ALLERGIES: ADHESIVES. DISCHARGE PLAN: The patient is discharged to inpatient hospice for comfort care only. HOSPITAL COURSE: This is a 64-year-old male, who was admitted by Dr. Benoit. Please see his H and P for further details. The patient was having septic shock on admission. He was admitted in ICU. He required vasopressor and antibiotic therapy. He was also evaluated by Pulmonary and Critical Care group in ICU, Cardiology group was consulted, Gastroenterology and Palliative Care Team were following while in hospital. The patient was stabilized in ICU, and he was transferred to telemetry floor. His overall condition was not improving, though he was stabilized. The patient's family member was thinking that his condition is gradually declining and they agreed with DNR status and comfort care only. [facility] Team accepted this patient for a hospice care. Family was also okay with hospice care only. Family was okay with discontinuing antibiotic therapy and all specific treatment for underlying problem. The patient will be discharged to inpatient hospice facility in our hospital. At this point, [facility] does not have any bed available in their own facility and that is why the patient will stay in hospital until they have bed open. During hospital, we will follow up in the hospital. Please see my progress note from today for further detail. Plan of care discussed with the family member as well. Job ID: [id number]
[2019-07-15 15:44] VITALS: BP 87/52; TEMP 97.9
== END 2019-07-15 17:06 | disposition hospice, inpatient (51) | DRG 564 ==
LOC: ERS 15:12 → CCU 19:26 → T4-A 07-10 14:45 → 2NO 07-11 15:25
PROVIDERS: ADMIT Internal Medicine; ATTEND Internal Medicine
PROC: 30233N1 Transfusion of Nonautologous Red Blood Cells into Peripheral Vein, Percutaneous Approach (ICD-10-PCS; principal; 2019-07-11)
DX: T87.44 Infection of amputation stump, left lower extremity (principal); A41.9 Sepsis, unspecified organism; J96.01 Acute respiratory failure with hypoxia; R65.21 Severe sepsis with septic shock; E43 Unspecified severe protein-calorie malnutrition; I50.43 Acute on chronic combined systolic (congestive) and diastolic (congestive) heart failure; J69.0 Pneumonitis due to inhalation of food and vomit; N39.0 Urinary tract infection, site not specified; L03.116 Cellulitis of left lower limb; J44.1 Chronic obstructive pulmonary disease with (acute) exacerbation; Z68.1 Body mass index [BMI] 19.9 or less, adult; Z51.5 Encounter for palliative care; Z66 Do not resuscitate; I48.91 Unspecified atrial fibrillation; I25.10 Atherosclerotic heart disease of native coronary artery without angina pectoris; I11.0 Hypertensive heart disease with heart failure; E78.5 Hyperlipidemia, unspecified; G43.909 Migraine, unspecified, not intractable, without status migrainosus; Z95.1 Presence of aortocoronary bypass graft; Z91.040 Latex allergy status; Z88.8 Allergy status to other drugs, medicaments and biological substances; Z79.82 Long term (current) use of aspirin; Z79.899 Other long term (current) drug therapy; Z79.02 Long term (current) use of antithrombotics/antiplatelets; D64.9 Anemia, unspecified; Z89.512 Acquired absence of left leg below knee
CPT/HCPCS: 36415; 36416; 36430; 36556; 71045; 80053; 80202; 81015; 82550; 82805; 83605; 83735; 83880; 84484; 85025; 85046; 85610; 85730; 86850; 86900; 86901; 87040; 87086; 93005; 93306; 94760; 96360; 96361; 96365; 96367; J1450; J1650; J1940; J2001; J2270; J2543; J3370; J3475; J3480; J3490; J7050; J7070; J7620; J7626; P9016

== ENCOUNTER 2019-07-15 17:23 | Inpatient (IN) | payer OTHER ==
[2019-07-15 17:32] VITALS: BMI 17.4
[2019-07-16] MEDS ORDERED: ALPRAZolam 0.25 MG TAB PO PRN (04:34)
[2019-07-16] MEDS ORDERED: Lorazepam 1 MG TAB PO PRN ×2 (04:34)
[2019-07-16] MEDS ORDERED: Acetaminophen 325 MG TAB PO PRN (04:34)
[2019-07-16] MEDS ORDERED: Haloperidol 1 MG TAB PO PRN (04:34)
[2019-07-16] MEDS ORDERED: Morphine 10 MG/0.5 ML ORAL SYRINGE SL PRN (04:34)
[2019-07-16] MEDS ORDERED: diphenhydrAMINE 25 MG CAP PO PRN (04:34)
[2019-07-16] MEDS ORDERED: Zolpidem Tartrate 5 MG TAB PO PRN (04:34)
[2019-07-16] MEDS ORDERED: chlorproMAZINE HCl 50 MG/2 ML AMP IM PRN ×2 (04:34)
[2019-07-16] MEDS ORDERED: chlorproMAZINE HCl 25 MG in Sodium Chloride 0.9% 50 ML IVPB PRN (04:34)
[2019-07-16] MEDS ORDERED: Acetaminophen 650 MG Suppository PR PRN (04:34)
[2019-07-16] MEDS ORDERED: Loperamide HCl 2 MG CAP PO PRN (04:34)
[2019-07-16] MEDS ORDERED: Ondansetron PF 4 MG/2 ML Vial IVP PRN (04:34)
[2019-07-16] MEDS ORDERED: Promethazine HCl 25 MG SUPP PR PRN (04:34)
[2019-07-16] MEDS ORDERED: Hyoscyamine Sulfate SL 0.125 mg Tablet SL PRN (04:34)
[2019-07-16] MEDS ORDERED: diphenhydrAMINE 50 MG/ML VIAL IVP PRN (04:34)
[2019-07-16] MEDS ORDERED: Milk Of Magnesia 30 ML UDCUP PO PRN (04:34)
[2019-07-16] MEDS ORDERED: Morphine 4 MG/ML VIAL SLOW IVP PRN ×2 (04:34)
[2019-07-16] MEDS ORDERED: Scopolamine 1.5 mg/72 hour Patch TOP PRN ×2 (04:34)
[2019-07-16] MEDS ORDERED: Ondansetron ODT 4 MG TAB PO PRN (04:34)
[2019-07-16] MEDS ORDERED: Lorazepam 2 MG/ML VIAL SLOW IVP PRN ×2 (04:34)
[2019-07-16] MEDS ORDERED: Morphine IR Tab 15 MG TAB PO PRN (04:34)
[2019-07-16] MEDS ORDERED: Senokot 8.6 MG TAB PO PRN (04:34)
[2019-07-16] MEDS ORDERED: Haloperidol Lactate 5 MG/ML VIAL SLOW IVP PRN (04:34)
[2019-07-16] MEDS ORDERED: Ibuprofen 200 MG TAB PO PRN (04:37)
[2019-07-16 08:02] VITALS: BP 90/59; TEMP 98.3
--- NOTE | 2019-07-17 10:01 | DIS ---
DATE OF ADMISSION: 07/15/2019 DATE OF DISCHARGE: 07/16/2019 HOSPITAL COURSE: Please see my discharge summary dictated on July 15, 2019. This patient was discharged to inpatient hospice facility. Unfortunately, [facility] hospice team did not have any bed available and that is why this patient was kept in our hospital for hospice care, and next day, the patient was discharged to [facility] when bed opened up. There is no change in my discharge summary dictated on July 15, 2019. Job ID: [id number]
== END 2019-07-16 16:13 | disposition hospice, inpatient (51) | DRG 951 ==
LOC: 2NO 17:23 → T4-A 18:25
PROVIDERS: ADMIT Internal Medicine; ATTEND Internal Medicine
DX: Z51.5 Encounter for palliative care (principal); A41.9 Sepsis, unspecified organism; R65.21 Severe sepsis with septic shock; J18.9 Pneumonia, unspecified organism; N39.0 Urinary tract infection, site not specified; J44.0 Chronic obstructive pulmonary disease with (acute) lower respiratory infection; T87.43 Infection of amputation stump, right lower extremity; I48.91 Unspecified atrial fibrillation; D64.9 Anemia, unspecified; I25.10 Atherosclerotic heart disease of native coronary artery without angina pectoris; I50.9 Heart failure, unspecified; E78.5 Hyperlipidemia, unspecified; G43.909 Migraine, unspecified, not intractable, without status migrainosus; M81.0 Age-related osteoporosis without current pathological fracture; I73.9 Peripheral vascular disease, unspecified; Z87.442 Personal history of urinary calculi; Z95.1 Presence of aortocoronary bypass graft; Z95.5 Presence of coronary angioplasty implant and graft; Z88.8 Allergy status to other drugs, medicaments and biological substances; Z91.040 Latex allergy status; Z79.82 Long term (current) use of aspirin; Z89.512 Acquired absence of left leg below knee; Z89.611 Acquired absence of right leg above knee; Z79.899 Other long term (current) drug therapy